=== PATIENT | male | born 1965 | race American Indian/Alaskan Native ===

== ENCOUNTER 2017-03-30 07:24 | Emergency (ER) | payer OTHER ==
[2017-03-30 15:29] VITALS: BP 178/133
--- NOTE | 2017-03-30 16:50 | Emergency Department Report ---
ED General Adult HPI - General Chief complaint: Abdominal Pain Time Seen by Provider: 03/30/17 16:23 Source: patient Mode of arrival: Ambulatory Limitations: No Limitations - History of Present Illness Initial comments: 52 y/o M presents w/ cc of colicky abdominal fullness/distension with constipation x 7 days. Pt states for the past 7 days he has not had a bm, and states he feels his abdomen is full /distended. Denies priro surgery, vomiting, fever, actual abdominal pain/tenderness. Denies etoh use, nsaid use, melena, hematochezia. Severity scale (0 -10): 7 - Related Data Home Medications Medication Instructions Recorded Confirmed Last Taken Amiodarone [Cordarone 200 MG TAB] 200 mg PO BID 03/30/17 03/30/17 03/30/17 Dabigatran [Pradaxa] 75 mg PO BID 03/30/17 03/30/17 03/30/17 NIFEdipine XL [Procardia Xl] 90 mg PO QDAY 03/30/17 03/30/17 03/30/17 cloNIDine [Catapres] 0.2 mg PO BID 03/30/17 03/30/17 03/30/17 Previous Rx's Medication Instructions Recorded Last Taken Type Furosemide [Lasix] 40 mg PO BID #60 tablet 10/15/13 03/30/17 Rx Glycerin Adult 2 gm 3 gm CO DAILY PRN #5 supp.rect 03/30/17 Unknown Rx Magnesium Citrate [Citrate of 150 ml PO ONCE PRN #300 solution 03/30/17 Unknown Rx Magnesia] Polyethylene Glycol 3350 [Miralax 17 gm PO QDAY PRN 14 Days 03/30/17 Unknown Rx 3350] Allergies Allergy/AdvReac Type Severity Reaction Status Date / Time No Known Allergies Allergy Verified 10/15/13 02:00 ED Review of Systems ROS: Stated complaint: Other details as noted in HPI Comment: All other systems reviewed and negative Constitutional: denies: chills, fever Eyes: denies: eye pain, eye discharge, vision change ENT: denies: ear pain, throat pain Respiratory: denies: cough, shortness of breath, wheezing Cardiovascular: denies: chest pain, palpitations Endocrine: no symptoms reported Gastrointestinal: constipation. denies: abdominal pain, nausea, diarrhea Genitourinary: denies: urgency, dysuria Musculoskeletal: denies: back pain, joint swelling, arthralgia Skin: denies: rash, lesions Neurological: denies: headache, weakness, paresthesias Psychiatric: denies: anxiety, depression Hematological/Lymphatic: denies: easy bleeding, easy bruising ED Past Medical Hx - Past Medical History Hx Hypertension: Yes Hx Congestive Heart Failure: Yes - Surgical History Past Surgical History?: No - Family History Family history: no significant - Social History Smoking Status: Never Smoker Substance Use Type: None - Medications Home Medications: Home Medications Medication Instructions Recorded Confirmed Last Taken Type Furosemide [Lasix] 40 mg PO BID #60 tablet 10/15/13 03/30/17 03/30/17 Rx Amiodarone [Cordarone 200 MG TAB] 200 mg PO BID 03/30/17 03/30/17 03/30/17 History Dabigatran [Pradaxa] 75 mg PO BID 03/30/17 03/30/17 03/30/17 History Glycerin Adult 2 gm 3 gm CO DAILY PRN #5 supp.rect 03/30/17 Unknown Rx Magnesium Citrate [Citrate of 150 ml PO ONCE PRN #300 solution 03/30/17 Unknown Rx Magnesia] NIFEdipine XL [Procardia Xl] 90 mg PO QDAY 03/30/17 03/30/17 03/30/17 History Polyethylene Glycol 3350 [Miralax 17 gm PO QDAY PRN 14 Days 03/30/17 Unknown Rx 3350] cloNIDine [Catapres] 0.2 mg PO BID 03/30/17 03/30/17 03/30/17 History ED Physical Exam - General Limitations: No Limitations General appearance: alert, in no apparent distress - Head Head exam: Present: atraumatic, normocephalic - Eye Eye exam: Present: normal appearance, PERRL, EOMI - ENT ENT exam: Present: normal exam, normal orophraynx, mucous membranes dry, mucous membranes moist - Neck Neck exam: Present: normal inspection, full ROM - Respiratory Respiratory exam: Present: normal lung sounds bilaterally. Absent: respiratory distress - Cardiovascular Cardiovascular Exam: Present: regular rate, normal rhythm, normal heart sounds. Absent: systolic murmur, diastolic murmur, rubs, gallop - GI/Abdominal GI/Abdominal exam: Present: soft, normal bowel sounds. 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 Absent: rash ED Course Vital Signs 03/30/17 03/30/17 03/30/17 07:40 15:28 15:29 Temperature 97.4 F L Pulse Rate 59 L 64 Respiratory 20 22 22 Rate Blood Pressure 152/119 Blood Pressure 178/133 [Left] O2 Sat by Pulse 100 100 100 Oximetry ED Medical Decision Making - Medical Decision Making Abdominal exam unremarkable, will get plain films to r/o SBO, but doubtful given no prior surgical hx. Abdomianl exam is benign, if plain films unremarkable, will give pt 12-24 hr abdominal precautions, and trial further laxatives. Plain films as reviewed by me notes no air fluid levels to suggest sbo, no free air. Will trial laxatives, pt given 12-24 hr abdominal preacutions, pt otherwise to return to ED if abd pain worsens or new symptoms develops. Pt also given discharge instructions regarding medications Critical care attestation.: If time is entered above; I have spent that time in minutes in the direct care of this critically ill patient, excluding procedure time. ED Disposition Clinical Impression: Constipation Qualifiers: Constipation type: unspecified constipation type Qualified Code(s): K59.00 - Constipation, unspecified Disposition: DISCHARGED TO HOME OR SELFCARE Is pt being admited?: No Does the pt Need Aspirin: No Condition: Good Instructions: Constipation (ED) Additional Instructions: Please follow up with primary care doctor in 1-2 days, return in 12-24 hrs if you have worsening abdominal pain, persistent vomiting, or any new concerning symptoms Prescriptions: Glycerin Adult 2 gm 3 gm CO DAILY PRN #5 supp.rect PRN Reason: Constipation Magnesium Citrate [Citrate of Magnesia] 150 ml PO ONCE PRN #300 solution PRN Reason: Constipation Polyethylene Glycol 3350 [Miralax 3350] 17 gm PO QDAY PRN 14 Days PRN Reason: Constipation Referrals: RADHA YANEZ MD [Primary Care Provider] - 3-5 Days Time of Disposition: 18:03
--- NOTE | 2017-03-31 08:12 | XRay Report ---
ABDOMINAL SERIES INDICATION: Constipation, abdominal pain. COMPARISON: 07/02/2013. FINDINGS: Abdominal series, 5 radiographs, demonstrate nonobstructive bowel gas pattern without focal suspicious calcifications, pneumatosis or pneumoperitoneum. Ascending/transverse colon stool/possible constipation. Accompanying chest radiograph demonstrates exaggerated cardiomediastinal silhouette/mild cardiomegaly. Somewhat prominent lung markings centrally with mild peribronchial thickening not excluded. Lung bases now clear without significant pleural effusions or CHF. Few bony degenerative changes. CONCLUSION: No acute abdominal radiographic abnormality with interval clearing of lung bases since June 2013, as described. Slight peribronchial thickening though now not excluded. Please correlate. Thank you for the opportunity to participate in this patient's care.
== END 2017-03-30 18:15 | disposition home or self-care (01) ==
LOC: ED 07:24
DX: K59.00 Constipation, unspecified (principal); I10 Essential (primary) hypertension; I50.9 Heart failure, unspecified
CPT/HCPCS: 74022; 99283

== ENCOUNTER 2017-05-05 08:12 | Outpatient (CLI) | payer OTHER ==
[2017-05-05] MEDS ORDERED: XYLOCAINE TOPICAL 4% TP ONE (08:35)
[2017-05-05] MEDS ORDERED: SANTYL TP ONE (10:05)
[2017-05-06] MEDS ORDERED: SANTYL TP SCH (10:00)
== END 2017-05-05 08:13 | disposition home or self-care (01) ==
LOC: WOUND 08:12
PROVIDERS: ATTEND Nurse Practitioner
DX: I87.313 Chronic venous hypertension (idiopathic) with ulcer of bilateral lower extremity (principal); L97.821 Non-pressure chronic ulcer of other part of left lower leg limited to breakdown of skin; L97.811 Non-pressure chronic ulcer of other part of right lower leg limited to breakdown of skin; I11.0 Hypertensive heart disease with heart failure; I50.22 Chronic systolic (congestive) heart failure; I48.91 Unspecified atrial fibrillation; Z87.891 Personal history of nicotine dependence
CPT/HCPCS: 11042; 11045; 87075; 87076; 87116; 87186; G0463

== ENCOUNTER 2017-05-26 11:04 | Outpatient (CLI) | payer OTHER ==
[2017-05-26] MEDS ORDERED: XYLOCAINE TOPICAL 4% TP ONE ×2 (11:49→12:03)
== END 2017-05-26 11:05 | disposition home or self-care (01) ==
LOC: WOUND 11:04
PROVIDERS: ATTEND Surgery
DX: I87.313 Chronic venous hypertension (idiopathic) with ulcer of bilateral lower extremity (principal); L97.821 Non-pressure chronic ulcer of other part of left lower leg limited to breakdown of skin; L97.811 Non-pressure chronic ulcer of other part of right lower leg limited to breakdown of skin; I11.0 Hypertensive heart disease with heart failure; I50.22 Chronic systolic (congestive) heart failure; I87.2 Venous insufficiency (chronic) (peripheral); I48.91 Unspecified atrial fibrillation; Z87.891 Personal history of nicotine dependence

== ENCOUNTER 2017-06-02 12:36 | Outpatient (CLI) | payer OTHER ==
[2017-06-02] MEDS ORDERED: XYLOCAINE TOPICAL 4% TP ONE ×2 (13:14→14:04)
== END 2017-06-02 12:37 | disposition home or self-care (01) ==
LOC: WOUND 12:36
PROVIDERS: ATTEND Nurse Practitioner
DX: I87.313 Chronic venous hypertension (idiopathic) with ulcer of bilateral lower extremity (principal); L97.821 Non-pressure chronic ulcer of other part of left lower leg limited to breakdown of skin; L97.811 Non-pressure chronic ulcer of other part of right lower leg limited to breakdown of skin; I11.0 Hypertensive heart disease with heart failure; I50.22 Chronic systolic (congestive) heart failure; I48.91 Unspecified atrial fibrillation; Z87.891 Personal history of nicotine dependence

== ENCOUNTER 2017-06-09 10:40 | Outpatient (CLI) | payer OTHER ==
[2017-06-09] MEDS ORDERED: XYLOCAINE TOPICAL 4% TP ONE ×2 (11:19→11:36)
== END 2017-06-09 10:41 | disposition home or self-care (01) ==
LOC: WOUND 10:40
PROVIDERS: ATTEND Nurse Practitioner
DX: I87.312 Chronic venous hypertension (idiopathic) with ulcer of left lower extremity (principal); L97.821 Non-pressure chronic ulcer of other part of left lower leg limited to breakdown of skin; I11.0 Hypertensive heart disease with heart failure; I50.9 Heart failure, unspecified; I48.91 Unspecified atrial fibrillation; Z87.891 Personal history of nicotine dependence

== ENCOUNTER 2017-06-16 10:49 | Outpatient (CLI) | payer OTHER ==
[2017-06-16] MEDS ORDERED: XYLOCAINE TOPICAL 4% TP ONE ×2 (11:24→11:26)
== END 2017-06-16 10:50 | disposition home or self-care (01) ==
LOC: WOUND 10:49
PROVIDERS: ATTEND Nurse Practitioner
DX: I87.313 Chronic venous hypertension (idiopathic) with ulcer of bilateral lower extremity (principal); L97.821 Non-pressure chronic ulcer of other part of left lower leg limited to breakdown of skin; L97.811 Non-pressure chronic ulcer of other part of right lower leg limited to breakdown of skin; I11.0 Hypertensive heart disease with heart failure; I50.22 Chronic systolic (congestive) heart failure; I48.91 Unspecified atrial fibrillation; Z87.891 Personal history of nicotine dependence

== ENCOUNTER 2017-06-20 15:30 | Outpatient (CLI) | payer OTHER | END 2017-06-20 15:31 | disposition home or self-care (01) | LOC: WOUND 15:30 | PROVIDERS: ATTEND Surgery | DX: I87.313 Chronic venous hypertension (idiopathic) with ulcer of bilateral lower extremity (principal); L97.821 Non-pressure chronic ulcer of other part of left lower leg limited to breakdown of skin; L97.811 Non-pressure chronic ulcer of other part of right lower leg limited to breakdown of skin; I11.0 Hypertensive heart disease with heart failure; I50.22 Chronic systolic (congestive) heart failure; I48.91 Unspecified atrial fibrillation; Z87.891 Personal history of nicotine dependence | CPT/HCPCS: 99213; G0463 ==

== ENCOUNTER 2017-06-23 10:50 | Outpatient (CLI) | payer OTHER ==
[2017-06-23] MEDS ORDERED: XYLOCAINE TOPICAL 4% TP ONE ×2 (11:12→11:17)
== END 2017-06-23 10:51 | disposition home or self-care (01) ==
LOC: WOUND 10:50
PROVIDERS: ATTEND Surgery
DX: I87.313 Chronic venous hypertension (idiopathic) with ulcer of bilateral lower extremity (principal); L97.821 Non-pressure chronic ulcer of other part of left lower leg limited to breakdown of skin; L97.811 Non-pressure chronic ulcer of other part of right lower leg limited to breakdown of skin; I11.0 Hypertensive heart disease with heart failure; I50.22 Chronic systolic (congestive) heart failure; I87.2 Venous insufficiency (chronic) (peripheral); I48.91 Unspecified atrial fibrillation; Z87.891 Personal history of nicotine dependence
CPT/HCPCS: 29580

== ENCOUNTER 2017-06-27 15:25 | Outpatient (CLI) | payer OTHER | END 2017-06-27 15:26 | disposition home or self-care (01) | LOC: WOUND 15:25 | PROVIDERS: ATTEND Internal Medicine | DX: I87.313 Chronic venous hypertension (idiopathic) with ulcer of bilateral lower extremity (principal); L97.821 Non-pressure chronic ulcer of other part of left lower leg limited to breakdown of skin; L97.811 Non-pressure chronic ulcer of other part of right lower leg limited to breakdown of skin; I11.0 Hypertensive heart disease with heart failure; I50.22 Chronic systolic (congestive) heart failure; I48.91 Unspecified atrial fibrillation; Z87.891 Personal history of nicotine dependence | CPT/HCPCS: 29580; 99215; G0463; G0463-25 ==

== ENCOUNTER 2017-06-30 10:51 | Outpatient (CLI) | payer OTHER ==
[2017-06-30] MEDS ORDERED: XYLOCAINE TOPICAL 2% TP ONE ×2 (11:31→14:57)
[2017-06-30] MEDS ORDERED: SILVER NITRATE TP ONE ×2 (11:53→14:57)
== END 2017-06-30 10:52 | disposition home or self-care (01) ==
LOC: WOUND 10:51
PROVIDERS: ATTEND Nurse Practitioner
DX: I87.313 Chronic venous hypertension (idiopathic) with ulcer of bilateral lower extremity (principal); L97.811 Non-pressure chronic ulcer of other part of right lower leg limited to breakdown of skin; L97.821 Non-pressure chronic ulcer of other part of left lower leg limited to breakdown of skin; I11.0 Hypertensive heart disease with heart failure; I50.22 Chronic systolic (congestive) heart failure; I48.91 Unspecified atrial fibrillation; Z87.891 Personal history of nicotine dependence

== ENCOUNTER 2017-07-04 15:41 | Outpatient (CLI) | payer OTHER | END 2017-07-04 15:42 | disposition home or self-care (01) | LOC: WOUND 15:41 | PROVIDERS: ATTEND Internal Medicine | DX: I87.313 Chronic venous hypertension (idiopathic) with ulcer of bilateral lower extremity (principal); L97.821 Non-pressure chronic ulcer of other part of left lower leg limited to breakdown of skin; L97.811 Non-pressure chronic ulcer of other part of right lower leg limited to breakdown of skin; I48.91 Unspecified atrial fibrillation; I11.0 Hypertensive heart disease with heart failure; I50.9 Heart failure, unspecified; Z87.891 Personal history of nicotine dependence | CPT/HCPCS: 29580; G0463 ==

== ENCOUNTER 2017-07-07 13:07 | Outpatient (CLI) | payer OTHER ==
[2017-07-07] MEDS ORDERED: XYLOCAINE TOPICAL 2% TP ONE (13:40)
== END 2017-07-07 13:08 | disposition home or self-care (01) ==
LOC: WOUND 13:07
PROVIDERS: ATTEND Nurse Practitioner
DX: I87.313 Chronic venous hypertension (idiopathic) with ulcer of bilateral lower extremity (principal); L97.821 Non-pressure chronic ulcer of other part of left lower leg limited to breakdown of skin; L97.811 Non-pressure chronic ulcer of other part of right lower leg limited to breakdown of skin; I11.0 Hypertensive heart disease with heart failure; I50.9 Heart failure, unspecified; I48.91 Unspecified atrial fibrillation; Z87.891 Personal history of nicotine dependence

== ENCOUNTER 2017-07-11 15:35 | Outpatient (CLI) | payer OTHER | END 2017-07-11 15:36 | disposition home or self-care (01) | LOC: WOUND 15:35 | PROVIDERS: ATTEND Internal Medicine | DX: I87.313 Chronic venous hypertension (idiopathic) with ulcer of bilateral lower extremity (principal); L97.821 Non-pressure chronic ulcer of other part of left lower leg limited to breakdown of skin; L97.811 Non-pressure chronic ulcer of other part of right lower leg limited to breakdown of skin; I11.0 Hypertensive heart disease with heart failure; I50.20 Unspecified systolic (congestive) heart failure; I48.91 Unspecified atrial fibrillation; Z87.891 Personal history of nicotine dependence | CPT/HCPCS: 29580 ==

== ENCOUNTER 2017-07-14 10:49 | Outpatient (CLI) | payer OTHER ==
[2017-07-14] MEDS ORDERED: XYLOCAINE TOPICAL 4% TP ONE (11:35)
[2017-07-14] MEDS ORDERED: SILVER NITRATE TP ONE (12:25)
== END 2017-07-14 10:50 | disposition home or self-care (01) ==
LOC: WOUND 10:49
PROVIDERS: ATTEND Nurse Practitioner
DX: I87.313 Chronic venous hypertension (idiopathic) with ulcer of bilateral lower extremity (principal); L97.821 Non-pressure chronic ulcer of other part of left lower leg limited to breakdown of skin; L97.811 Non-pressure chronic ulcer of other part of right lower leg limited to breakdown of skin; I11.0 Hypertensive heart disease with heart failure; I50.22 Chronic systolic (congestive) heart failure; I48.91 Unspecified atrial fibrillation; Z87.891 Personal history of nicotine dependence
CPT/HCPCS: 17250

== ENCOUNTER 2017-07-21 11:07 | Outpatient (CLI) | payer OTHER ==
[2017-07-21] MEDS ORDERED: XYLOCAINE TOPICAL 4% TP ONE (11:38)
[2017-07-21] MEDS ORDERED: XYLOCAINE TOPICAL 2% TP ONE (13:00)
== END 2017-07-21 11:08 | disposition home or self-care (01) ==
LOC: WOUND 11:07
PROVIDERS: ATTEND Nurse Practitioner
DX: I87.313 Chronic venous hypertension (idiopathic) with ulcer of bilateral lower extremity (principal); L97.821 Non-pressure chronic ulcer of other part of left lower leg limited to breakdown of skin; L97.811 Non-pressure chronic ulcer of other part of right lower leg limited to breakdown of skin; I11.0 Hypertensive heart disease with heart failure; I50.22 Chronic systolic (congestive) heart failure; I48.91 Unspecified atrial fibrillation; I50.9 Heart failure, unspecified; Z87.891 Personal history of nicotine dependence

== ENCOUNTER 2017-07-28 10:57 | Outpatient (CLI) | payer OTHER | END 2017-07-28 10:58 | disposition home or self-care (01) | LOC: WOUND 10:57 | PROVIDERS: ATTEND Nurse Practitioner | DX: I87.313 Chronic venous hypertension (idiopathic) with ulcer of bilateral lower extremity (principal); L97.821 Non-pressure chronic ulcer of other part of left lower leg limited to breakdown of skin; L97.811 Non-pressure chronic ulcer of other part of right lower leg limited to breakdown of skin; I11.0 Hypertensive heart disease with heart failure; I50.22 Chronic systolic (congestive) heart failure; I48.91 Unspecified atrial fibrillation; Z87.891 Personal history of nicotine dependence | CPT/HCPCS: 99213; G0463 ==

== ENCOUNTER 2018-06-20 20:07 | Inpatient (IN) | payer OTHER ==
[2018-06-20 20:44] LABS: Hematocrit 33.2 % (35.5-45.6); Hemoglobin 10.9 gm/dl (11.8-15.2); Mean Corpuscular HGB Conc 33 % (32-34); Mean Corpuscular Hemoglobin 29 pg (28-32); Mean Corpuscular Volume 88 fl (84-94); Platelet Count 215 K/mm3 (140-440); Red Blood Count 3.79 M/mm3 (3.65-5.03); Red Cell Distribution Width 16.2 % (13.2-15.2)
[2018-06-20 21:00] LABS: Calcium 8.2 mg/dL (8.4-10.2)
--- NOTE | 2018-06-20 23:57 | XRay Report ---
FINAL REPORT EXAM: XR CHEST ROUTINE 2V HISTORY: sob TECHNIQUE: Frontal and lateral views of the chest Comparison: None FINDINGS: The lateral view is degraded by motion artifact. There is prominence of the interstitial markings in both lungs. There appears to be pulmonary consolidation in the right lung base. There is prominence of the pulmonary venous vasculature suggestive of pulmonary venous congestion. The heart is enlarged. The thoracic aorta is tortuous. The bony structures are unremarkable. IMPRESSION: 1. Enlarged cardiac silhouette with evidence of pulmonary venous congestion, prominence of the interstitial markings and pulmonary consolidation right lung base. This may represent changes of CHF. An infectious component cannot entirely be excluded.
[2018-06-21] MEDS ORDERED: LASIX IV ONE (00:07)
--- NOTE | 2018-06-21 00:12 | Emergency Department Report ---
ED Shortness of Breath HPI - General Chief Complaint: Dyspnea/Respdistress Stated Complaint: FLUID STOMACH/LEG Time Seen by Provider: 06/20/18 23:39 Source: patient Mode of arrival: Ambulatory Limitations: No Limitations - History of Present Illness Initial Comments: Patient is 53 years old male history of congestive heart failure and hypertension. Patient presented to the ER complaining off shortness of breath for the last 5 days and getting worse since last night. Patient denied any cough or fever. Patient is also complaining of generalized body swelling especially abdomen and lower extremities. Patient stated that he is compliant with his Lasix. Complaint: shortness of breath -: days(s) Severity: moderate Known History Of: congestive heart failure Associated Symptoms: denies other symptoms - Related Data Home Medications Medication Instructions Recorded Confirmed Last Taken NIFEdipine XL [Procardia Xl] 90 mg PO QDAY 03/30/17 05/13/18 04/25/17 cloNIDine [Catapres] 0.2 mg PO BID 03/30/17 05/13/18 04/24/17 Previous Rx's Medication Instructions Recorded Last Taken Type Amiodarone [Cordarone 200 MG TAB] 200 mg PO QDAY #30 tablet 05/18/18 Unknown Rx AtorvaSTATin [Lipitor] 40 mg PO QHS #30 tablet 05/18/18 Unknown Rx Dabigatran [Pradaxa] 150 mg PO BID #60 capsule 05/18/18 Unknown Rx Furosemide [Lasix TAB] 40 mg PO QDAY #30 tablet 05/18/18 Unknown Rx Metolazone [Zaroxolyn] 5 mg PO QDAY #14 tablet 05/18/18 Unknown Rx Metoprolol Xl [Metoprolol 25 mg PO QDAY #30 tablet 05/18/18 Unknown Rx SUCCINATE ER TAB] Valsartan [Diovan] 80 mg PO QDAY 30 Days tablet 05/18/18 Unknown Rx Allergies Allergy/AdvReac Type Severity Reaction Status Date / Time No Known Allergies Allergy Verified 10/15/13 02:00 ED Review of Systems ROS: Stated complaint: FLUID STOMACH/LEG Other details as noted in HPI Comment: All other systems reviewed and negative Constitutional: denies: chills, fever Respiratory: orthopnea, shortness of breath, SOB with exertion, SOB at rest. denies: wheezing Cardiovascular: dyspnea on exertion, orthopnea, paroxysmal nocturnal dyspnea. denies: chest pain, palpitations Gastrointestinal: denies: abdominal pain, nausea, vomiting, diarrhea, constipation, hematemesis, melena, hematochezia ED Past Medical Hx - Past Medical History Hx Hypertension: Yes Hx Congestive Heart Failure: Yes Hx Renal Disease: Yes Additional medical history: AFIB,EF 10-15%, Dilated cardiomyopathy,Edema - Surgical History Past Surgical History?: No - Social History Smoking Status: Never Smoker Substance Use Type: None - Medications Home Medications: Home Medications Medication Instructions Recorded Confirmed Last Taken Type NIFEdipine XL [Procardia Xl] 90 mg PO QDAY 03/30/17 05/13/18 04/25/17 History cloNIDine [Catapres] 0.2 mg PO BID 03/30/17 05/13/18 04/24/17 History Amiodarone [Cordarone 200 MG TAB] 200 mg PO QDAY #30 tablet 05/18/18 Unknown Rx AtorvaSTATin [Lipitor] 40 mg PO QHS #30 tablet 05/18/18 Unknown Rx Dabigatran [Pradaxa] 150 mg PO BID #60 capsule 05/18/18 Unknown Rx Furosemide [Lasix TAB] 40 mg PO QDAY #30 tablet 05/18/18 Unknown Rx Metolazone [Zaroxolyn] 5 mg PO QDAY #14 tablet 05/18/18 Unknown Rx Metoprolol Xl [Metoprolol 25 mg PO QDAY #30 tablet 05/18/18 Unknown Rx SUCCINATE ER TAB] Valsartan [Diovan] 80 mg PO QDAY 30 Days tablet 05/18/18 Unknown Rx ED Physical Exam - General Limitations: No Limitations General appearance: alert, in distress (moderate respiratory distress) - Head Head exam: Present: atraumatic, normocephalic, normal inspection - Eye Eye exam: Present: normal appearance - ENT ENT exam: Present: normal exam, normal orophraynx, mucous membranes moist - Neck Neck exam: Present: normal inspection, full ROM. Absent: tenderness, meningismus, lymphadenopathy, thyromegaly - Respiratory Respiratory exam: Present: rales, decreased breath sounds. Absent: wheezes, rhonchi, chest wall tenderness, accessory muscle use, prolonged expiratory - Cardiovascular Cardiovascular Exam: Present: irregular rhythm, gallop. Absent: systolic murmur , diastolic murmur - GI/Abdominal GI/Abdominal exam: Present: soft, normal bowel sounds. Absent: distended, tenderness, guarding, rebound, rigid, mass, bruit, pulsatile mass, hernia - Extremities Exam Extremities exam: Present: full ROM, normal capillary refill, pedal edema. Absent: calf tenderness - Back Exam Back exam: Present: normal inspection, full ROM. Absent: tenderness, CVA tenderness (R) - Neurological Exam Neurological exam: Present: alert, oriented X3, CN II-XII intact, normal gait, reflexes normal - Skin Skin exam: Present: warm, intact, normal color ED Course Vital Signs 06/20/18 20:23 Temperature 98.4 F Pulse Rate 81 Respiratory 26 H Rate Blood Pressure 115/81 O2 Sat by Pulse 98 Oximetry ED Medical Decision Making - Lab Data Result diagrams: 06/20/18 20:32 06/20/18 20:32 - EKG Data -: EKG Interpreted by Me Rate: normal - EKG Data Interpretation: no acute changes - Radiology Data Radiology results: report reviewed Chest x-ray finding consistent with congestive heart failure. - Medical Decision Making I discussed the patient is Dr. Kebede, he agreed to admit the patient to his service. Critical care attestation.: If time is entered above; I have spent that time in minutes in the direct care of this critically ill patient, excluding procedure time. ED Disposition Clinical Impression: Acute on chronic systolic (congestive) heart failure, Atrial fibrillation Disposition: OP ADMIT IP TO THIS HOSP Is pt being admited?: Yes Condition: Stable Referrals: PRIMARY CARE, [Primary Care Provider] - 3-5 Days
[2018-06-21] MEDS ORDERED: ZOFRAN IV PRN (00:59)
[2018-06-21] MEDS ORDERED: TYLENOL PO PRN (00:59)
--- NOTE | 2018-06-21 02:39 | History and Physical Report ---
CHIEF COMPLAINT: Shortness of breath. Other complaints include generalized body swelling. HISTORY OF PRESENTING ILLNESS: The patient is a 53-year-old male with known history of congestive heart failure presenting with shortness of breath going on for about 5 days. Also, the patient complained of generalized swelling especially in the lower extremity and abdomen. There is no history of chest pain, no history of fever or chills, but there is history of dry cough. The patient denied history of nausea and vomiting as well. As said, he has been compliant with his intake of medication including Lasix. PAST MEDICAL HISTORY: Pertinent for hypertension, congestive heart failure, Raynaud disease, atrial fibrillation, dilated cardiomyopathy with ejection fraction of 10-15%. PAST SURGICAL HISTORY: Unremarkable. FAMILY HISTORY: Family history is noncontributory. SOCIAL HISTORY: The patient does not smoke, does not drink alcohol, does not use illicit drugs. MEDICATIONS: The patient is on the following medications: Nifedipine XL 90 mg by mouth daily, clonidine 0.2 mg by mouth twice daily, amiodarone 200 mg by mouth daily, atorvastatin 40 mg at bedtime, dabigatran or Pradaxa 150 mg by mouth twice daily, furosemide 40 mg by mouth daily, metolazone or Zaroxolyn 5 mg by mouth daily, metoprolol XL 25 mg by mouth daily, Diovan 80 mg by mouth daily. ALLERGIES: There are no known drug allergies. REVIEW OF SYSTEMS: CONSTITUTIONAL: There is no fever, no chills, no diaphoresis. HEENT: There is no headache or sore throat. CARDIOVASCULAR SYSTEM: There is no chest pain, but there is orthopnea. RESPIRATORY SYSTEM: There is shortness of breath and there is cough. GASTROINTESTINAL SYSTEM: There is no nausea, no vomiting, no abdominal pain, diarrhea or constipation. NEUROLOGICAL SYSTEM: There is no numbness, no dizziness, no altered mental status. MUSCULOSKELETAL SYSTEM: Generalized body swelling noted. Swelling of the lower extremity also noted. DERMATOLOGICAL SYSTEM: There is no skin rash or itching. GENITOURINARY SYSTEM: There is no dysuria, hematuria or flank pain. Rest of system review is normal. PHYSICAL EXAMINATION: GENERAL: At the time of exam, the patient was found to be alert, oriented x 3 and not in acute distress. VITAL SIGNS: At the initial time of presentation shows temperature of 98.4 degrees Fahrenheit, pulse of 81, respiration 26, blood pressure 115/81, O2 sat of 98% on room air. HEENT: Show pupils to be equal, round, reactive to light and accommodating. Extraocular muscles are intact. NECK: Supple with no JVD or carotid bruit. CARDIOVASCULAR SYSTEM: Show first and second heart sounds with irregularly irregular rhythm. RESPIRATORY SYSTEM: Show good air entry on both sides of the lungs with bibasilar rales. GASTROINTESTINAL SYSTEM: Show abdomen to be swollen, nontender with no organomegaly, no rigidity elicited. NEUROLOGICAL: Shows no focal deficits. MUSCULOSKELETAL SYSTEM: Show swelling of both lower extremities with pitting edema. DERMATOLOGICAL SYSTEM: Showed hyperpigmentation in the ankle areas. GENITOURINARY SYSTEM: Show no costovertebral angle tenderness. PERTINENT LABORATORY DATA AND IMAGING STUDIES: The patient has CBC done with normal white count, low hemoglobin of 10.9 and low hematocrit of 33.2 with normal platelet level. CBC differential was not done. Chemistry shows high BUN of 29 and elevated creatinine of 2.0 consistent with chronic kidney disease. The patient's calcium level was low with a value of 8.2. The patient's troponin level came back unremarkable and brain natriuretic peptide level is high with a value of 3389. IMAGING STUDIES: The patient has chest x-ray done. Chest x-ray showed enlarged cardiac silhouette with evidence of pulmonary venous congestion. Prominence of the interstitial markings and pulmonary consolidation in the right lung base and the radiologist said that this may represent changes of CHF. Went further to say that an infectious component cannot entirely be excluded. DIAGNOSES: 1. Congestive heart failure exacerbation. 2. Chronic kidney disease. 3. Anemia. PLAN: 1. The patient will be admitted to telemetry. 2. The patient will have cardiac enzyme involving troponin, total CK and CK-MB check q. 6 hours x 2 more levels. 3. The patient will have 2D echo done in the morning. 4. The patient will be on nitro paste one each to anterior chest wall q.i.d. 5. The patient will be on IV Lasix 40 mg daily. 6. The patient will be on p.r.n. medications like Tylenol 650 mg by mouth every 4 hours for fever and headache and Zofran 4 mg IV every 8 hours as needed for nausea and vomiting. 7. The patient will have Nephrology consult with the med surg rn for chronic kidney disease. 8. The patient's diet will be 2 g sodium diet. The patient's home medications will be started as shown in the medication reconciliation section. JOB# [id number] [facility]/DONNELL CHOWDHURY
[2018-06-21] MEDS: NITRO-BID 2% TP SCH ×3 (06:19→18:52)
[2018-06-21 09:02] LABS: Creatine Kinase MB 3.2 ng/mL (0.0-4.0)
--- NOTE | 2018-06-21 09:05 | Consultation ---
History of Present Illness Consult date: 06/21/18 Consult reason: congestive heart failure, known to you History of present illness: This is a 53 year old male with a known history of dilated cardiomyopathy dating back to 2012. His latest cardiac evaluation was done a month ago. He underwent a cardiac catheterization that revealed no significant coronary artery disease. Ejection fraction 10-15%. He also has a history of atrial fibrillation and is on Pradaxa for oral anticoagulation. Patient was sent from his doctors office with shortness of breath, severe abdominal distension admitted with severe anasarca and decompensated heart failure. 12 lead ECG shows atrial fibrillation with a well controled ventricular rate. Cardiac consultation was requested. Medications and Allergies Allergies Allergy/AdvReac Type Severity Reaction Status Date / Time No Known Allergies Allergy Verified 10/15/13 02:00 Home Medications Medication Instructions Recorded Confirmed Last Taken Type NIFEdipine XL [Procardia Xl] 90 mg PO QDAY 03/30/17 05/13/18 04/25/17 History cloNIDine [Catapres] 0.2 mg PO BID 03/30/17 05/13/18 04/24/17 History Amiodarone [Cordarone 200 MG TAB] 200 mg PO QDAY #30 tablet 05/18/18 Unknown Rx AtorvaSTATin [Lipitor] 40 mg PO QHS #30 tablet 05/18/18 Unknown Rx Dabigatran [Pradaxa] 150 mg PO BID #60 capsule 05/18/18 Unknown Rx Furosemide [Lasix TAB] 40 mg PO QDAY #30 tablet 05/18/18 Unknown Rx Metolazone [Zaroxolyn] 5 mg PO QDAY #14 tablet 05/18/18 Unknown Rx Metoprolol Xl [Metoprolol 25 mg PO QDAY #30 tablet 05/18/18 Unknown Rx SUCCINATE ER TAB] Valsartan [Diovan] 80 mg PO QDAY 30 Days tablet 05/18/18 Unknown Rx Active Meds: Active Medications Acetaminophen (Tylenol) 650 mg PO Q4H PRN PRN Reason: Fever >101 Amiodarone HCl (Cordarone) 200 mg PO QDAY KEITH Atorvastatin Calcium (Lipitor) 40 mg PO QHS KEITH Clonidine HCl (Catapres) 0.2 mg PO BID KEITH Dabigatran (Pradaxa) 150 mg PO BID KEITH; Protocol Furosemide (Lasix) 40 mg IV 0600,1800 KEITH Milrinone Lactate/Dextrose (Milrinone-D5w 20 Mg/100 Ml) 20 mg in 100 mls @ 12.263 mls/hr IV TITR KEITH Metolazone (Zaroxolyn) 5 mg PO QDAY KEITH Nifedipine (Procardia Xl) 90 mg PO QDAY [facility] Nitroglycerin (Nitro-Bid 2%) 1 inch TP QIDNTG [facility]; Protocol Last Admin: 06/21/18 06:19 Dose: 1 inch Ondansetron HCl (Zofran) 4 mg IV Q8H PRN PRN Reason: Nausea And Vomiting Valsartan (Diovan) 80 mg PO QDAY [facility] Physical Examination Vital Signs Temp Pulse Resp BP Pulse Ox 98.4 F 81 26 H 115/81 98 06/20/18 20:23 06/20/18 20:23 06/20/18 20:23 06/20/18 20:23 06/20/18 20:23 General appearance: no acute distress HEENT: Positive: PERRL Cardiac: Positive: irregularly irregular Lungs: Positive: Decreased Breath Sounds Neuro: Positive: Grossly Intact Abdomen: Positive: Distended Extremities: Present: edema Results 06/20/18 20:32 06/20/18 20:32 CBC 06/20/18 Range/Units 20:32 WBC 4.5 (4.5-11.0) K/mm3 RBC 3.79 (3.65-5.03) M/mm3 Hgb 10.9 L (11.8-15.2) gm/dl Hct 33.2 L (35.5-45.6) % Plt Count 215 (140-440) K/mm3 Comprehensive Metabolic Panel 06/20/18 Range/Units 20:32 Sodium 141 (137-145) mmol/L Potassium 3.8 (3.6-5.0) mmol/L Chloride 105.4 (98-107) mmol/L Carbon Dioxide 22 (22-30) mmol/L BUN 29 H (9-20) mg/dL Creatinine 2.0 H (0.8-1.5) mg/dL Glucose 96 (75-100) mg/dL Calcium 8.2 L (8.4-10.2) mg/dL Assessment and Plan Acute on chronic systolic heart failure Aanasarca Severe Nonischemic Cardiomyopathy Persistent atrial fibrillation rate controlled and currently treated with amiodarone. on Pradaxa for oral anticoagulation. Hypertension Acute renal failure Cardiac cath 05/2018 shows a severe nonischemic cardiomyopathy with left ventricular ejection fraction 10%. Recommend: Abdominal ultrasound for ascities evaluation. Aggressive medical therapy for systolic heart failure. We will initiate a trial of IV milrinone therapy. Sodium/Fluid restriction. Daily weight.
[2018-06-21] MEDS ORDERED: LASIX IV SCH ×3 (10:00→18:00)
[2018-06-21] MEDS ORDERED: TOPROL XL PO SCH (10:00)
[2018-06-21] MEDS: CATAPRES PO SCH ×2 (10:29→22:00)
--- NOTE | 2018-06-21 12:32 | Consultation ---
History of Present Illness - Reason for Consult Consult date: 06/21/18 acute renal failure, chronic renal failure Requesting physician: ROOSEVELT US - History of Present Illness This is a 53 yo AAM with past medical history of hypertension, hyperlipidemia, Chronic nonischemic cardiomyopathy, with EF of 10-15%, atrial fibrillation, CKD , who presented to [facility] with complaints of progressive SOB, NORIEGA, chest tightness for the last week. Pt was found to be in A-fib and CXR showed cardiomegaly, pulmonary vascular congestion and pt was admitted for IV diuresis along with inotropic support. Labs showed elevated BUN/Cr 29/2.0mg/dl compared to pt's previous baseline Cr around 1.5-1.6mg/dl, for which Renal consult is requested. pt denies fever, chills, nausea, vomiting, diarrhea, abd pain, rash, no recent NSAIDs use or IV contrast exposure reported. pt is not aware of any previous renal disorder. Past History Past Medical History: atrial fib, heart failure, hypertension Past Surgical History: No surgical history Social history: no significant social history. denies: smoking, alcohol abuse, prescription drug abuse, IV drug use Family history: hypertension Medications and Allergies Allergies Allergy/AdvReac Type Severity Reaction Status Date / Time No Known Allergies Allergy Verified 10/15/13 02:00 Home Medications Medication Instructions Recorded Confirmed Last Taken Type NIFEdipine XL [Procardia Xl] 90 mg PO QDAY 03/30/17 05/13/18 04/25/17 History cloNIDine [Catapres] 0.2 mg PO BID 03/30/17 05/13/18 04/24/17 History Amiodarone [Cordarone 200 MG TAB] 200 mg PO QDAY #30 tablet 05/18/18 Unknown Rx AtorvaSTATin [Lipitor] 40 mg PO QHS #30 tablet 05/18/18 Unknown Rx Dabigatran [Pradaxa] 150 mg PO BID #60 capsule 05/18/18 Unknown Rx Furosemide [Lasix TAB] 40 mg PO QDAY #30 tablet 05/18/18 Unknown Rx Metolazone [Zaroxolyn] 5 mg PO QDAY #14 tablet 05/18/18 Unknown Rx Metoprolol Xl [Metoprolol 25 mg PO QDAY #30 tablet 05/18/18 Unknown Rx SUCCINATE ER TAB] Valsartan [Diovan] 80 mg PO QDAY 30 Days tablet 05/18/18 Unknown Rx Active Meds: Active Medications Acetaminophen (Tylenol) 650 mg PO Q4H PRN PRN Reason: Fever >101 Amiodarone HCl (Cordarone) 200 mg PO QDAY [facility] Atorvastatin Calcium (Lipitor) 40 mg PO QHS [facility] Clonidine HCl (Catapres) 0.2 mg PO BID [facility] Dabigatran (Pradaxa) 150 mg PO BID [facility]; Protocol Furosemide (Lasix) 60 mg IV 0600,1800 [facility] Milrinone Lactate/Dextrose (Milrinone-D5w 20 Mg/100 Ml) 20 mg in 100 mls @ 12.263 mls/hr IV TITR KEITH Metolazone (Zaroxolyn) 5 mg PO QDAY [facility] Metoprolol Succinate (Toprol Xl) 25 mg PO QDAY [facility] Nifedipine (Procardia Xl) 90 mg PO QDAY [facility] Nitroglycerin (Nitro-Bid 2%) 1 inch TP QIDNTG [facility]; Protocol Last Admin: 06/21/18 06:19 Dose: 1 inch Ondansetron HCl (Zofran) 4 mg IV Q8H PRN PRN Reason: Nausea And Vomiting Valsartan (Diovan) 80 mg PO QDAY [facility] Review of Systems All systems: negative Constitutional: fatigue, weakness Cardiovascular: orthopnea, shortness of breath, dyspnea on exertion Respiratory: cough Exam - Vital Signs Vital signs: Vital Signs Temp Pulse Resp BP Pulse Ox 98.4 F 81 26 H 115/81 98 06/20/18 20:23 06/20/18 20:23 06/20/18 20:23 06/20/18 20:23 06/20/18 20:23 - General Appearance General appearance: well-developed, well-nourished, appears stated age EENT: ATNC, PERRL, mucous membranes moist Neck: Present: neck supple Respiratory: Decreased Breath Sounds Heart: regular, S1S2 Gastrointestinal: Present: normoactive bowel sounds Integumentary: no rash, other (+ edema b/l LE ) Neurologic: no focal deficit, alert and oriented x3, strength 5/5, CN 3-12 intact Psychiatric: mood/affect appropriate, cooperative Results - Lab Results 06/20/18 20:32 06/20/18 20:32 Most recent lab results Calcium 8.2 mg/dL (8.4-10.2) L 06/20/18 20:32 Assessment and Plan - Patient Problems (1) DESEAN (acute kidney injury) Current Visit: No Status: Acute Plan to address problem: acute kidney injury likely due to acute cardiorenal syndrome in the setting of acute CHF exacerbation. IV lasix 60mg bid, to target net negative fluid balance >1L/day. If diuretic effect is not adequate will add metolazone Inotropic support as per cardiology check urine lytes to assess FeNA, check urine protein/cr ratio Avoid nephrotoxins, NSAIDs, IV contrast (2) Acute on chronic systolic (congestive) heart failure Current Visit: Yes Status: Acute Plan to address problem: IV lasix, inotropic support with milrinone. cont ARB for now, will hold it however if eGFR continues to decline. strict I/Os, daily weight, fluid restriction to 1.5L/day (3) Atrial fibrillation Current Visit: Yes Status: Acute Qualifiers: Plan to address problem: rate control as per cardiology (4) Pulmonary edema Current Visit: Yes Status: Acute Plan to address problem: IV lasix 60mg bid. na/fluid restriction discussed.
[2018-06-21] MEDS: PRADAXA PO SCH ×2 (12:46→22:00)
[2018-06-21] MEDS: PROCARDIA XL PO SCH (12:46)
[2018-06-21] MEDS: ZAROXOLYN PO SCH (12:46)
[2018-06-21] MEDS: DIOVAN PO SCH (12:47)
[2018-06-21] MEDS: CORDARONE PO SCH (12:47)
--- NOTE | 2018-06-21 15:10 | Progress Note ---
Assessment and Plan Assessment and plan: 53M with CHF, pw sob and pedal edema, says his diuretics at home were not working DESEAN (acute kidney injury) renal on board, improving with diuresis and cardiac ionotrope Acute on chronic systolic (congestive) heart failure -continue IV ionotrope, continue diuretics, cardiology consult appreciated Atrial fibrillation continue rate control meds Pulmonary edema due to CHF IV lasix 60mg bid. na/fluid restriction discussed. CCT 33 minutes History Interval history: Review of systems Constitutional: No fevers, no malaise, no joint pains CVS: co sob and pedal edema GI: No abdominal pain, no diarrhea, no vomiting, no constipation Respiratory: No shortness of breath, no wheezing, no coughing Hospitalist Physical - Physical exam Narrative exam: General.: Appears well, no distress, nontoxic HEENT: Moist mucous membranes, extraocular muscles intact, no lymphadenopathy Neck: supple Cardiac: S1-S2 heard Lungs: bilat crackles, diminshed air entry Abdomen: soft , nontender, distended with ascites, bowel sounds positive Extremities: severe bipedal edema Skin: no rash or lesions Neurologic: no gross focal deficits Psych: appropriate behavior, appropriate mood, corporative, judgment intact - Constitutional Vitals: Temp Pulse Resp BP Pulse Ox 97.9 F 93 H 20 96/60 95 06/21/18 11:47 06/21/18 11:47 06/21/18 11:47 06/21/18 13:30 06/21/18 11:47 General appearance: Present: no acute distress Results - Labs CBC & Chem 7: 06/20/18 20:32 06/24/18 04:49 Labs: Laboratory Last Values WBC 4.5 K/mm3 (4.5-11.0) 06/20/18 20:32 RBC 3.79 M/mm3 (3.65-5.03) 06/20/18 20:32 Hgb 10.9 gm/dl (11.8-15.2) L 06/20/18 20:32 Hct 33.2 % (35.5-45.6) L 06/20/18 20:32 MCV 88 fl (84-94) 06/20/18 20:32 MCH 29 pg (28-32) 06/20/18 20:32 MCHC 33 % (32-34) 06/20/18 20:32 RDW 16.2 % (13.2-15.2) H 06/20/18 20:32 Plt Count 215 K/mm3 (140-440) 06/20/18 20:32 Sodium 141 mmol/L (137-145) 06/20/18 20:32 Potassium 3.8 mmol/L (3.6-5.0) 06/20/18 20:32 Chloride 105.4 mmol/L (98-107) 06/20/18 20:32 Carbon Dioxide 22 mmol/L (22-30) 06/20/18 20:32 Anion Gap 17 mmol/L 06/20/18 20:32 BUN 29 mg/dL (9-20) H 06/20/18 20:32 Creatinine 2.0 mg/dL (0.8-1.5) H 06/20/18 20:32 Estimated GFR 43 ml/min 06/20/18 20:32 BUN/Creatinine Ratio 15 % 06/20/18 20:32 Glucose 96 mg/dL (75-100) 06/20/18 20:32 Calcium 8.2 mg/dL (8.4-10.2) L 06/20/18 20:32 Total Creatine Kinase 190 units/L (55-170) H 06/21/18 11:42 CK-MB (CK-2) 3.0 ng/mL (0.0-4.0) 06/21/18 11:42 CK-MB (CK-2) Rel Index 1.5 (0-4) 06/21/18 11:42 Troponin T < 0.010 ng/mL (0.00-0.029) 06/21/18 11:42 NT-Pro-B Natriuret Pep 3389 pg/mL (0-900) H 06/20/18 20:32
[2018-06-21] MEDS: MILRINONE-D5W 20 MG/100 ML 20 MG/100 ML BAG IV SCH ×2 (16:15→22:03)
[2018-06-21] MEDS: LASIX IV SCH (18:58)
[2018-06-21 20:22] LABS: Bilirubin,Urine NEG (Negative); Blood,Urine NEG (Negative); Color,Urine Yellow (Yellow); Protein,Urine <15 mg/dL mg/dL (Negative); Urobilinogen,Urine < 2.0 mg/dL (<2.0); WBC,Urine < 1.0 /HPF (0.0-6.0)
[2018-06-21 20:39] LABS: Creatinine,Urine 26.7 mg/dL (0.1-20.0)
[2018-06-21 20:52] LABS: Calcium 7.9 mg/dL (8.4-10.2)
[2018-06-22] MEDS: LASIX IV SCH ×2 (05:55→18:20)
[2018-06-22] MEDS: NITRO-BID 2% TP SCH ×4 (05:55→18:14)
--- NOTE | 2018-06-22 10:23 | Ultrasound Report ---
ULTRASOUND ABDOMEN COMPLETE: TECHNIQUE: Transabdominal ultrasound with color Doppler interrogation. HISTORY: Abdominal distention. COMPARISON: none. FINDINGS: LIVER: Normal. BILIARY SYSTEM: Normal. PANCREAS: Normal. SPLEEN: Normal. 8.9 cm. KIDNEYS: The kidneys are normal size, contour and position. There is increased renal cortical echotexture consistent with nonspecific renal parenchymal disease. AORTA/IVC: Normal. ASCITES: Moderate simple appearing ascites is identified throughout the abdomen. IMPRESSION: Moderate ascites. Slightly echogenic kidneys consistent with nonspecific renal parenchymal disease.
[2018-06-22] MEDS: DIOVAN PO SCH (10:48)
[2018-06-22] MEDS: CATAPRES PO SCH ×2 (10:48→22:18)
[2018-06-22] MEDS: PRADAXA PO SCH ×3 (10:49→22:14)
[2018-06-22] MEDS: PROCARDIA XL PO SCH (10:54)
[2018-06-22] MEDS: TOPROL XL PO SCH (10:54)
[2018-06-22] MEDS: CORDARONE PO SCH (10:55)
[2018-06-22] MEDS: ZAROXOLYN PO SCH (10:55)
--- NOTE | 2018-06-22 11:12 | Progress Note ---
Assessment and Plan Acute on chronic systolic heart failure Aanasarca Ascities -moderate by abd u/s Severe Nonischemic Cardiomyopathy Persistent atrial fibrillation with ventricular pauses < 5 sec seen on telemetry rate controlled and currently treated with amiodarone and toprol XL. on Pradaxa for oral anticoagulation. Hypertension Acute renal failure Cardiac cath 05/2018 shows a severe nonischemic cardiomyopathy with left ventricular ejection fraction 10%. Recommend: Aggressive medical therapy for systolic heart failure. Sodium/Fluid restriction. Daily weight. Subjective Date of service: 06/22/18 Interval history: IV milrinone held overnight secondary to hypotension. < 5 sec pause seen on telemetry overnight. Patient remained asymptomatic per nursing. Objective Vital Signs Temp Pulse Resp BP BP Pulse Ox 06/22/18 10:54 96/66 06/22/18 10:49 06/22/18 10:48 06/22/18 08:44 98.3 F 100 H 22 104/59 97 06/22/18 05:44 98.0 F 71 18 88/47 97 06/22/18 05:15 99 H 98 06/21/18 23:15 98.2 F 61 18 78/45 96 06/21/18 20:03 98.1 F 61 20 86/61 99 06/21/18 19:39 77/47 06/21/18 17:36 98.0 F 73 20 117/89 06/21/18 16:01 98.0 F 65 20 118/82 99 06/21/18 13:30 96/60 06/21/18 11:47 97.9 F 93 H 20 96/60 95 - Physical Examination General: No Apparent Distress HEENT: Positive: PERRL Cardiac: Positive: irregularly irregular Neuro: Positive: Grossly Intact Abdomen: Positive: Distended Extremities: Present: edema - Labs and Meds Cardiac Enzymes 06/21/18 Range/Units 11:42 CK-MB (CK-2) 3.0 (0.0-4.0) ng/mL Comprehensive Metabolic Panel 06/21/18 06/22/18 Range/Units 20:09 07:43 Sodium 140 141 (137-145) mmol/L Potassium 3.3 L 3.1 L (3.6-5.0) mmol/L Chloride 104.5 104.1 (98-107) mmol/L Carbon Dioxide 23 22 (22-30) mmol/L BUN 28 H 30 H (9-20) mg/dL Creatinine 1.6 H 2.0 H (0.8-1.5) mg/dL Glucose 93 98 (75-100) mg/dL Calcium 7.9 L 8.0 L (8.4-10.2) mg/dL
[2018-06-22] MEDS: DOBUTREX DRIP 500MG/D5W 250ML 500 MG/250 ML BAG IV SCH (16:15)
--- NOTE | 2018-06-22 17:16 | Progress Note ---
Assessment and Plan - Patient Problems (1) DESEAN (acute kidney injury) Current Visit: No Status: Acute Plan to address problem: acute kidney injury likely due to acute cardiorenal syndrome in the setting of acute CHF exacerbation. cont IV lasix 60mg bid along with metolazone to target net negative fluid balance >1L/day. Inotropic support as per cardiology Urine studies show no evidence of significant proteinuria/hematuria, I doubt acute glomerular injury Avoid nephrotoxins, NSAIDs, IV contrast (2) Acute on chronic systolic (congestive) heart failure Current Visit: Yes Status: Acute Plan to address problem: IV lasix, inotropic support (cardiology considering dobutamin due to low BP on milrinone). cont ARB for now. strict I/Os, daily weight, fluid restriction to 1.5L/day (3) Atrial fibrillation Current Visit: Yes Status: Acute Qualifiers: Plan to address problem: rate control as per cardiology (4) Pulmonary edema Current Visit: Yes Status: Acute Plan to address problem: IV lasix 60mg bid. na/fluid restriction discussed. Subjective Date of service: 06/22/18 Principal diagnosis: DESEAN on CKD Interval history: Pt reports improved SOB, denies fever, chills, n/v/d, CP, palpitations Objective - Vital Signs Vital signs: Vital Signs - 12hr 06/22/18 06/22/18 06/22/18 05:15 05:44 08:44 Temperature 98.0 F 98.3 F Pulse Rate 99 H 71 100 H Respiratory 18 22 Rate Blood Pressure 104/59 Blood Pressure 88/47 [Right] O2 Sat by Pulse 98 97 97 Oximetry 06/22/18 06/22/18 06/22/18 10:30 10:48 10:49 Temperature 98.1 F Pulse Rate 64 Respiratory 20 Rate Blood Pressure 96/66 96/66 Blood Pressure 96/66 [Right] O2 Sat by Pulse Oximetry 06/22/18 06/22/18 06/22/18 10:54 11:12 16:49 Temperature 98.3 F 97.9 F Pulse Rate 79 55 L Respiratory 20 22 Rate Blood Pressure 96/66 105/73 114/78 Blood Pressure [Right] O2 Sat by Pulse 95 95 Oximetry - General Appearance General appearance: well-developed, well-nourished, appears stated age EENT: ATNC, PERRL, mucous membranes moist Neck: no JVD Respiratory: Present: Decreased Breath Sounds Cardiology: regular, S1S2 Gastrointestinal: normoactive bowel sounds, obese Integumentary: no rash, other (2+ edema b/l LE ) Neurologic: no focal deficit, alert and oriented x3, strength 5/5, CN 3-12 intact Psychiatric: mood/affect appropriate, cooperative - Lab 06/20/18 20:32 06/22/18 07:43 Most recent lab results Calcium 8.0 mg/dL (8.4-10.2) L 06/22/18 07:43 Urine Creatinine 26.7 mg/dL (0.1-20.0) H 06/21/18 19:56 Urine Sodium 105 mmol/L 06/21/18 19:56 Urine Total Protein < 4 mg/dL (5-11.8) L 06/21/18 19:56
[2018-06-23] MEDS: LASIX IV SCH ×2 (05:57→18:05)
[2018-06-23 06:33] LABS: Calcium 8.4 mg/dL (8.4-10.2)
[2018-06-23] MEDS: NITRO-BID 2% TP SCH ×4 (06:54→18:11)
[2018-06-23] MEDS ORDERED: K-DUR PO NR (08:00)
[2018-06-23] MEDS: DOBUTREX DRIP 500MG/D5W 250ML 500 MG/250 ML BAG IV SCH (08:10)
--- NOTE | 2018-06-23 08:11 | Progress Note ---
Assessment and Plan Assessment and plan: 53M with CHF, pw sob and pedal edema, says his diuretics at home were not working DESEAN (acute kidney injury) renal on board, improving with diuresis and cardiac ionotrope Acute on chronic systolic (congestive) heart failure -continue IV ionotrope, continue diuretics, cardiology consult appreciated Atrial fibrillation continue rate control meds Pulmonary edema due to CHF IV lasix 60mg bid. na/fluid restriction discussed. Hypokalemia; continue K supplements CCT 33 minutes History Interval history: Review of systems Constitutional: No fevers, no malaise, no joint pains CVS: co sob and pedal edema GI: No abdominal pain, no diarrhea, no vomiting, no constipation Respiratory: No shortness of breath, no wheezing, no coughing Hospitalist Physical - Physical exam Narrative exam: General.: Appears well, no distress, nontoxic HEENT: Moist mucous membranes, extraocular muscles intact, no lymphadenopathy Neck: supple Cardiac: S1-S2 heard Lungs: bilat crackles, diminshed air entry Abdomen: soft , nontender, distended with ascites, bowel sounds positive Extremities: severe bipedal edema Skin: no rash or lesions Neurologic: no gross focal deficits Psych: appropriate behavior, appropriate mood, corporative, judgment intact - Constitutional Vitals: Temp Pulse Resp BP Pulse Ox 98.6 F 103 H 20 131/93 92 06/23/18 05:14 06/23/18 05:14 06/23/18 05:14 06/23/18 05:14 06/23/18 05:14 General appearance: Present: no acute distress Results - Labs CBC & Chem 7: 06/20/18 20:32 06/24/18 04:49 Labs: Laboratory Last Values WBC 4.5 K/mm3 (4.5-11.0) 06/20/18 20:32 RBC 3.79 M/mm3 (3.65-5.03) 06/20/18 20:32 Hgb 10.9 gm/dl (11.8-15.2) L 06/20/18 20:32 Hct 33.2 % (35.5-45.6) L 06/20/18 20:32 MCV 88 fl (84-94) 06/20/18 20:32 MCH 29 pg (28-32) 06/20/18 20:32 MCHC 33 % (32-34) 06/20/18 20:32 RDW 16.2 % (13.2-15.2) H 06/20/18 20:32 Plt Count 215 K/mm3 (140-440) 06/20/18 20:32 Sodium 144 mmol/L (137-145) 06/23/18 05:17 Potassium 2.9 mmol/L (3.6-5.0) L* 06/23/18 05:17 Chloride 102.9 mmol/L (98-107) 06/23/18 05:17 Carbon Dioxide 25 mmol/L (22-30) 06/23/18 05:17 Anion Gap 19 mmol/L 06/23/18 05:17 BUN 23 mg/dL (9-20) H 06/23/18 05:17 Creatinine 1.7 mg/dL (0.8-1.5) H 06/23/18 05:17 Estimated GFR 51 ml/min 06/23/18 05:17 BUN/Creatinine Ratio 14 % 06/23/18 05:17 Glucose 79 mg/dL (75-100) 06/23/18 05:17 Calcium 8.4 mg/dL (8.4-10.2) 06/23/18 05:17 Total Creatine Kinase 190 units/L (55-170) H 06/21/18 11:42 CK-MB (CK-2) 3.0 ng/mL (0.0-4.0) 06/21/18 11:42 CK-MB (CK-2) Rel Index 1.5 (0-4) 06/21/18 11:42 Troponin T < 0.010 ng/mL (0.00-0.029) 06/21/18 11:42 NT-Pro-B Natriuret Pep 3389 pg/mL (0-900) H 06/20/18 20:32 Urine Color Yellow (Yellow) 06/21/18 19:56 Urine Turbidity Clear (Clear) 06/21/18 19:56 Urine pH 5.0 (5.0-7.0) 06/21/18 19:56 Ur Specific [place] 1.006 (1.003-1.030) 06/21/18 19:56 Urine Protein <15 mg/dl mg/dL (Negative) 06/21/18 19:56 Urine Glucose (UA) Neg mg/dL (Negative) 06/21/18 19:56 Urine Ketones Neg mg/dL (Negative) 06/21/18 19:56 Urine Blood Neg (Negative) 06/21/18 19:56 Urine Nitrite Neg (Negative) 06/21/18 19:56 Urine Bilirubin Neg (Negative) 06/21/18 19:56 Urine Urobilinogen < 2.0 mg/dL (<2.0) 06/21/18 19:56 Ur Leukocyte Esterase Neg (Negative) 06/21/18 19:56 Urine WBC (Auto) < 1.0 /HPF (0.0-6.0) 06/21/18 19:56 Urine RBC (Auto) 3.0 /HPF (0.0-6.0) 06/21/18 19:56 Urine Creatinine 26.7 mg/dL (0.1-20.0) H 06/21/18 19:56 Urine Sodium 105 mmol/L 06/21/18 19:56 Urine Total Protein < 4 mg/dL (5-11.8) L 06/21/18 19:56
--- NOTE | 2018-06-23 09:41 | Progress Note ---
Assessment and Plan Acute on chronic systolic heart failure Aanasarca Ascities -moderate by abd u/s Severe Nonischemic Cardiomyopathy Persistent atrial fibrillation with ventricular pauses < 5 sec seen on telemetry rate controlled and currently treated with amiodarone and toprol XL. on Pradaxa for oral anticoagulation. Hypertension Acute renal failure Cardiac cath 05/2018 shows a severe nonischemic cardiomyopathy with left ventricular ejection fraction 10%. Recommend: Continue aggressive medical therapy for systolic heart failure including trial of IV dobutrex. Sodium/Fluid restriction. Daily weight. Subjective Date of service: 06/23/18 Principal diagnosis: DESEAN on CKD Interval history: Patient has no complaints. Reports his breathing is improving. Edema is slowly resolving. No reported cardiac events overnight. Objective Vital Signs Temp Pulse Resp BP BP BP Pulse Ox 06/23/18 09:22 98.1 F 86 20 129/86 96 06/23/18 08:32 98.1 F 95 H 20 142/108 98 06/23/18 05:14 98.6 F 103 H 20 131/93 92 06/22/18 23:35 97.9 F 92 H 18 127/87 100 06/22/18 22:18 72 110/88 06/22/18 20:54 98.0 F 72 18 110/88 100 06/22/18 18:14 55 L 06/22/18 16:49 97.9 F 55 L 22 114/78 95 06/22/18 11:12 98.3 F 79 20 105/73 95 06/22/18 10:54 96/66 06/22/18 10:49 /06/22/18 10:48 /06/22/18 10:31 /06/22/18 10:30 98.1 F 64 20 96/66 - Physical Examination General: No Apparent Distress HEENT: Positive: PERRL Cardiac: Positive: irregularly irregular Neuro: Positive: Grossly Intact Abdomen: Positive: Distended Extremities: Present: edema - Labs and Meds Comprehensive Metabolic Panel 06/23/18 Range/Units 05:17 Sodium 144 (137-145) mmol/L Potassium 2.9 L* (3.6-5.0) mmol/L Chloride 102.9 (98-107) mmol/L Carbon Dioxide 25 (22-30) mmol/L BUN 23 H (9-20) mg/dL Creatinine 1.7 H (0.8-1.5) mg/dL Glucose 79 (75-100) mg/dL Calcium 8.4 (8.4-10.2) mg/dL
[2018-06-23] MEDS ORDERED: POTASSIUM CHLORIDE FEEDTUBE SCH (10:00)
[2018-06-23] MEDS: CATAPRES PO SCH ×2 (10:58→22:27)
[2018-06-23] MEDS: TOPROL XL PO SCH (10:58)
[2018-06-23] MEDS: K-DUR PO SCH ×4 (10:58→22:28)
[2018-06-23] MEDS: PRADAXA PO SCH ×2 (11:04→22:28)
[2018-06-23] MEDS: ZAROXOLYN PO SCH (11:04)
[2018-06-23] MEDS: PROCARDIA XL PO SCH (11:07)
[2018-06-23] MEDS: CORDARONE PO SCH (11:07)
[2018-06-23] MEDS: DIOVAN PO SCH (11:12)
--- NOTE | 2018-06-23 12:02 | Progress Note ---
Assessment and Plan - Patient Problems (1) DESEAN (acute kidney injury) Current Visit: No Status: Acute Plan to address problem: acute kidney injury likely due to acute cardiorenal syndrome in the setting of acute CHF exacerbation. cont IV lasix 60mg bid along with dobutamin to target net negative fluid balance >1L/day. will d/c metolazone given significant hypokalemia Urine studies show no evidence of significant proteinuria/hematuria, I doubt acute glomerular injury Avoid nephrotoxins, NSAIDs, IV contrast (2) Acute on chronic systolic (congestive) heart failure Current Visit: Yes Status: Acute Plan to address problem: IV lasix, inotropic support with dobutamin. cont ARB for now. strict I/Os, daily weight, fluid restriction to 1.5L/day (3) Atrial fibrillation Current Visit: Yes Status: Acute Qualifiers: Plan to address problem: rate control as per cardiology (4) Pulmonary edema Current Visit: Yes Status: Acute Plan to address problem: IV lasix 60mg bid. na/fluid restriction discussed. (5) Hypokalemia Current Visit: Yes Status: Acute Plan to address problem: supplementation with Kdur to target K > 4 Subjective Date of service: 06/23/18 Principal diagnosis: DESEAN on CKD Interval history: Pt reports improved SOB, denies fever, chills, n/v/d, CP, palpitations Objective - Vital Signs Vital signs: Vital Signs - 12hr 06/23/18 06/23/18 06/23/18 05:14 08:32 09:22 Temperature 98.6 F 98.1 F 98.1 F Pulse Rate 103 H 95 H 86 Respiratory 20 20 20 Rate Blood Pressure 131/93 142/108 Blood Pressure 129/86 [Left] O2 Sat by Pulse 92 98 96 Oximetry - General Appearance General appearance: well-developed, well-nourished, appears stated age, obese EENT: ATNC, PERRL, mucous membranes moist Neck: no JVD Respiratory: Present: Decreased Breath Sounds Cardiology: regular, S1S2 Gastrointestinal: normoactive bowel sounds, obese Integumentary: no rash, other (+ edema b/l LE ) Neurologic: no focal deficit, alert and oriented x3, strength 5/5, CN 3-12 intact Psychiatric: mood/affect appropriate, cooperative - Lab 06/20/18 20:32 06/23/18 05:17 Most recent lab results Calcium 8.4 mg/dL (8.4-10.2) 06/23/18 05:17 Urine Creatinine 26.7 mg/dL (0.1-20.0) H 06/21/18 19:56 Urine Sodium 105 mmol/L 06/21/18 19:56 Urine Total Protein < 4 mg/dL (5-11.8) L 06/21/18 19:56
[2018-06-24] MEDS: DOBUTREX DRIP 500MG/D5W 250ML 500 MG/250 ML BAG IV SCH ×2 (01:57→22:55)
[2018-06-24] MEDS: NITRO-BID 2% TP SCH ×4 (06:05→17:36)
[2018-06-24] MEDS: LASIX IV SCH ×2 (06:06→17:36)
[2018-06-24 06:19] LABS: BUN/Creatinine Ratio 13; Blood Urea Nitrogen 17 mg/dL (9-20); Calcium 8.7 mg/dL (8.4-10.2); Hemolysis Index 8
[2018-06-24] MEDS: DIOVAN PO SCH (09:32)
[2018-06-24] MEDS: PROCARDIA XL PO SCH (09:32)
[2018-06-24] MEDS: CORDARONE PO SCH (09:33)
[2018-06-24] MEDS: K-DUR PO SCH (09:33)
[2018-06-24] MEDS: PRADAXA PO SCH ×2 (09:33→22:58)
[2018-06-24] MEDS: TOPROL XL PO SCH (09:33)
[2018-06-24] MEDS: CATAPRES PO SCH ×2 (09:34→22:57)
--- NOTE | 2018-06-24 10:22 | Progress Note ---
Assessment and Plan 1. 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 2. 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 Paroxysmal atrial fibrillation 4. Chronic kidney disease 5. Essential hypertension Plan. Patient is currently stable continue IV inotropic agent patient's diuresing significantly continue present management Subjective Date of service: 06/24/18 Principal diagnosis: DESEAN on CKD Interval history: Patient states he is feeling better and breathing better Objective Vital Signs Temp Pulse Pulse Resp Resp BP BP 06/24/18 08:14 98.3 F 94 H 20 129/91 06/24/18 04:17 98.5 F 103 H 16 119/87 06/24/18 00:07 98.2 F 17 117/84 06/23/18 22:27 65 84/66 06/23/18 22:00 70 18 06/23/18 21:01 18 06/23/18 19:58 75 06/23/18 19:22 97.7 F 65 17 84/66 06/23/18 16:08 98.2 F 57 L 20 110/86 06/23/18 13:18 97.7 F 56 L 22 109/86 06/23/18 12:41 97.7 F 59 L 22 141/101 Pulse Ox 06/24/18 08:14 97 06/24/18 04:17 98 06/24/18 00:07 06/23/18 22:27 06/23/18 22:00 06/23/18 21:01 06/23/18 19:58 06/23/18 19:22 98 06/23/18 16:08 94 06/23/18 13:18 96 06/23/18 12:41 97 - Physical Examination General: Appears Well, No Apparent Distress HEENT: Positive: PERRL Neck: Positive: neck supple, trachea midline. Negative: JVD/HJR Cardiac: Positive: Regular Rate, S1/S2, PMI, Laterally Displaced Lungs: Positive: clear to auscultation, No Wheeze, Rales, Rhonchi Neuro: Positive: Grossly Intact, Weakness Abdomen: Positive: Distended Extremities: Absent: edema - Labs and Meds Comprehensive Metabolic Panel 06/24/18 Range/Units 04:49 Sodium 142 (137-145) mmol/L Potassium 3.4 L (3.6-5.0) mmol/L Chloride 100.7 (98-107) mmol/L Carbon Dioxide 30 (22-30) mmol/L BUN 17 (9-20) mg/dL Creatinine 1.3 (0.8-1.5) mg/dL Glucose 83 (75-100) mg/dL Calcium 8.7 (8.4-10.2) mg/dL
--- NOTE | 2018-06-24 12:02 | Progress Note ---
Assessment and Plan - Patient Problems (1) Acute on chronic systolic (congestive) heart failure Current Visit: Yes Status: Acute Plan to address problem: Continue with current diuresis regimen with lasix 60 mg IV BID. Patient is diuresing appropriately, Need to closely monitor his I/O and ensure that we maintain him net negative 1-1 /5L over 24 hour period to allow for appropriate fluid removal. (2) Hypokalemia Current Visit: Yes Status: Acute Plan to address problem: Will follow up on electrolytes. Metolazone was discontinued. Patient is diuresing well with the current lasix regimen. Will continue to monitor. (3) DESEAN (acute kidney injury) Current Visit: No Status: Acute Plan to address problem: Likely in the setting of acute cardiorenal syndrome. Agree with current regimen and diuretic plan. Renal function is showing improvement as we are diuresing. (4) Atrial fibrillation Current Visit: Yes Status: Acute Qualifiers: Plan to address problem: Rate control per cardiology recommendations. Subjective Date of service: 06/24/18 Principal diagnosis: DESEAN on CKD Interval history: Patient is doing well. No acute issues. Continues to diurese well. Labs noted and serum creatinine is decreased this am. Objective - Vital Signs Vital signs: Vital Signs - 12hr 06/24/18 06/24/18 06/24/18 00:07 04:17 08:14 Temperature 98.2 F 98.5 F 98.3 F Pulse Rate 103 H 94 H Respiratory 17 16 20 Rate Blood Pressure 117/84 119/87 129/91 O2 Sat by Pulse 98 97 Oximetry - General Appearance General appearance: well-developed, well-nourished EENT: mucous membranes moist Neck: no thyromegaly, supple Respiratory: Present: Decreased Breath Sounds Cardiology: regular, S1S2 Gastrointestinal: normal, normoactive bowel sounds Integumentary: no rash, warm and dry Neurologic: no focal deficit, no asterixis Musculoskeletal: deferred Psychiatric: mood/affect appropriate, cooperative - Lab 06/20/18 20:32 06/24/18 04:49 Most recent lab results Calcium 8.7 mg/dL (8.4-10.2) 06/24/18 04:49 Urine Creatinine 26.7 mg/dL (0.1-20.0) H 06/21/18 19:56 Urine Sodium 105 mmol/L 06/21/18 19:56 Urine Total Protein < 4 mg/dL (5-11.8) L 06/21/18 19:56 - Allied health notes Allied health notes reviewed: nursing
--- NOTE | 2018-06-24 13:53 | Progress Note ---
Assessment and Plan Assessment and plan: 53M with CHF, pw sob and pedal edema, says his diuretics at home were not working DESEAN (acute kidney injury) renal on board, improving with diuresis and cardiac ionotrope Acute on chronic systolic (congestive) heart failure -continue IV ionotrope, continue diuretics, cardiology consult appreciated Atrial fibrillation continue rate control meds Pulmonary edema due to CHF IV lasix 60mg bid. na/fluid restriction discussed. Hypokalemia; continue K supplements CCT 33 minutes History Interval history: Review of systems Constitutional: No fevers, no malaise, no joint pains CVS: co sob and pedal edema GI: No abdominal pain, no diarrhea, no vomiting, no constipation Respiratory: No shortness of breath, no wheezing, no coughing Hospitalist Physical - Physical exam Narrative exam: General.: Appears well, no distress, nontoxic HEENT: Moist mucous membranes, extraocular muscles intact, no lymphadenopathy Neck: supple Cardiac: S1-S2 heard Lungs: bilat crackles, diminshed air entry Abdomen: soft , nontender, distended with ascites, bowel sounds positive Extremities: severe bipedal edema Skin: no rash or lesions Neurologic: no gross focal deficits Psych: appropriate behavior, appropriate mood, corporative, judgment intact - Constitutional Vitals: Temp Pulse Resp BP Pulse Ox 98.2 F 90 20 119/75 93 06/24/18 11:40 06/24/18 11:40 06/24/18 11:40 06/24/18 11:40 06/24/18 11:40 General appearance: Present: no acute distress Results - Labs CBC & Chem 7: 06/20/18 20:32 06/24/18 04:49 Labs: Laboratory Last Values WBC 4.5 K/mm3 (4.5-11.0) 06/20/18 20:32 RBC 3.79 M/mm3 (3.65-5.03) 06/20/18 20:32 Hgb 10.9 gm/dl (11.8-15.2) L 06/20/18 20:32 Hct 33.2 % (35.5-45.6) L 06/20/18 20:32 MCV 88 fl (84-94) 06/20/18 20:32 MCH 29 pg (28-32) 06/20/18 20:32 MCHC 33 % (32-34) 06/20/18 20:32 RDW 16.2 % (13.2-15.2) H 06/20/18 20:32 Plt Count 215 K/mm3 (140-440) 06/20/18 20:32 Sodium 142 mmol/L (137-145) 06/24/18 04:49 Potassium 3.4 mmol/L (3.6-5.0) L 06/24/18 04:49 Chloride 100.7 mmol/L (98-107) 06/24/18 04:49 Carbon Dioxide 30 mmol/L (22-30) 06/24/18 04:49 Anion Gap 15 mmol/L 06/24/18 04:49 BUN 17 mg/dL (9-20) 06/24/18 04:49 Creatinine 1.3 mg/dL (0.8-1.5) 06/24/18 04:49 Estimated GFR > 60 ml/min 06/24/18 04:49 BUN/Creatinine Ratio 13 % 06/24/18 04:49 Glucose 83 mg/dL (75-100) 06/24/18 04:49 Calcium 8.7 mg/dL (8.4-10.2) 06/24/18 04:49 Total Creatine Kinase 190 units/L (55-170) H 06/21/18 11:42 CK-MB (CK-2) 3.0 ng/mL (0.0-4.0) 06/21/18 11:42 CK-MB (CK-2) Rel Index 1.5 (0-4) 06/21/18 11:42 Troponin T < 0.010 ng/mL (0.00-0.029) 06/21/18 11:42 NT-Pro-B Natriuret Pep 3389 pg/mL (0-900) H 06/20/18 20:32 Urine Color Yellow (Yellow) 06/21/18 19:56 Urine Turbidity Clear (Clear) 06/21/18 19:56 Urine pH 5.0 (5.0-7.0) 06/21/18 19:56 Ur Specific [place] 1.006 (1.003-1.030) 06/21/18 19:56 Urine Protein <15 mg/dl mg/dL (Negative) 06/21/18 19:56 Urine Glucose (UA) Neg mg/dL (Negative) 06/21/18 19:56 Urine Ketones Neg mg/dL (Negative) 06/21/18 19:56 Urine Blood Neg (Negative) 06/21/18 19:56 Urine Nitrite Neg (Negative) 06/21/18 19:56 Urine Bilirubin Neg (Negative) 06/21/18 19:56 Urine Urobilinogen < 2.0 mg/dL (<2.0) 06/21/18 19:56 Ur Leukocyte Esterase Neg (Negative) 06/21/18 19:56 Urine WBC (Auto) < 1.0 /HPF (0.0-6.0) 06/21/18 19:56 Urine RBC (Auto) 3.0 /HPF (0.0-6.0) 06/21/18 19:56 Urine Creatinine 26.7 mg/dL (0.1-20.0) H 06/21/18 19:56 Urine Sodium 105 mmol/L 06/21/18 19:56 Urine Total Protein < 4 mg/dL (5-11.8) L 06/21/18 19:56
[2018-06-25] MEDS: NITRO-BID 2% TP SCH ×4 (06:19→17:34)
[2018-06-25] MEDS: LASIX IV SCH ×2 (06:21→18:53)
[2018-06-25 07:52] LABS: BUN/Creatinine Ratio 12; Blood Urea Nitrogen 14 mg/dL (9-20); Calcium 8.8 mg/dL (8.4-10.2); Hemolysis Index 2
--- NOTE | 2018-06-25 10:07 | Progress Note ---
Assessment and Plan 1. 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 2. 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 Paroxysmal atrial fibrillation 4. Chronic kidney disease 5. Essential hypertension Plan. Patient is currently stable continue IV inotropic agent patient's diuresing significantly continue present management Plan on discharging home in the am Subjective Date of service: 06/25/18 Principal diagnosis: DESEAN on CKD Interval history: Patient states he is feeling better and breathing better Objective Vital Signs Temp Pulse Pulse Resp Resp BP Pulse Ox 06/25/18 08:14 98.0 F 63 18 111/70 99 06/25/18 04:07 97.8 F 18 119/68 06/24/18 23:41 97.3 F L 18 111/79 06/24/18 22:57 82 110/62 06/24/18 22:00 80 18 06/24/18 21:26 18 06/24/18 19:53 98.3 F 18 110/62 06/24/18 19:40 80 06/24/18 15:37 98.0 F 58 L 20 117/77 98 06/24/18 11:40 98.2 F 90 20 119/75 93 - Physical Examination General: Appears Well, No Apparent Distress HEENT: Positive: PERRL Neck: Positive: neck supple, trachea midline. Negative: JVD/HJR Cardiac: Positive: Reg Rate and Rhythm, Regular Rate, S1/S2, S3, PMI, Dilated, Laterally Displaced Lungs: Positive: clear to auscultation, No Wheeze, Rales, Rhonchi Neuro: Positive: Grossly Intact, Weakness Abdomen: Positive: Distended Extremities: Absent: edema - Labs and Meds Comprehensive Metabolic Panel 06/25/18 Range/Units 06:39 Sodium 141 (137-145) mmol/L Potassium 3.3 L (3.6-5.0) mmol/L Chloride 95.9 L (98-107) mmol/L Carbon Dioxide 33 H (22-30) mmol/L BUN 14 (9-20) mg/dL Creatinine 1.2 (0.8-1.5) mg/dL Glucose 81 (75-100) mg/dL Calcium 8.8 (8.4-10.2) mg/dL - Allied health notes Allied health notes reviewed: nursing
[2018-06-25] MEDS: CATAPRES PO SCH ×2 (10:35→22:46)
[2018-06-25] MEDS: DIOVAN PO SCH (10:35)
[2018-06-25] MEDS: TOPROL XL PO SCH (10:35)
[2018-06-25] MEDS: CORDARONE PO SCH (10:35)
[2018-06-25] MEDS: PROCARDIA XL PO SCH (10:35)
[2018-06-25] MEDS: K-DUR PO SCH (10:35)
[2018-06-25] MEDS: PRADAXA PO SCH ×2 (10:35→22:47)
--- NOTE | 2018-06-25 12:30 | Progress Note ---
Assessment and Plan - Patient Problems (1) Acute on chronic systolic (congestive) heart failure Current Visit: Yes Status: Acute Plan to address problem: Continue with current diuresis regimen with lasix 60 mg IV BID. Patient is diuresing appropriately, Need to closely monitor his I/O and ensure that we maintain him net negative 1-1 /5L over 24 hour period to allow for appropriate fluid removal. (2) Hypokalemia Current Visit: Yes Status: Acute Plan to address problem: Will follow up on electrolytes. Metolazone was discontinued. Patient is diuresing well with the current lasix regimen. Will continue to monitor. Replete potassium per protocol. (3) DESEAN (acute kidney injury) Current Visit: No Status: Acute Plan to address problem: Likely in the setting of acute cardiorenal syndrome. Agree with current regimen and diuretic plan. Renal function is showing improvement with serum creatinine continuing to show decrease. (4) Atrial fibrillation Current Visit: Yes Status: Acute Qualifiers: Plan to address problem: Rate control per cardiology recommendations. Subjective Date of service: 06/25/18 Principal diagnosis: DESEAN on CKD Interval history: No acute issues overnight, and he has been doing well with the current diuretic regimen. Continues on dobutamine gtt and lasix 60 mg IV BID. Labs are stable and his serum creatinine has improved. Objective - Vital Signs Vital signs: Vital Signs - 12hr 06/25/18 06/25/18 04:07 08:14 Temperature 97.8 F 98.0 F Pulse Rate 63 Respiratory 18 18 Rate Blood Pressure 119/68 111/70 O2 Sat by Pulse 99 Oximetry - General Appearance General appearance: well-developed, well-nourished, appears stated age EENT: ATNC, PERRL, mucous membranes moist Neck: no thyromegaly, no carotid bruit, supple Respiratory: Present: Clear to Ascultation, Normal Exam Cardiology: regular, normal heart rate Gastrointestinal: normal, normoactive bowel sounds Integumentary: no rash, warm and dry Neurologic: no focal deficit, no asterixis Musculoskeletal: deferred Psychiatric: mood/affect appropriate, cooperative - Lab 06/20/18 20:32 06/25/18 06:39 Most recent lab results Calcium 8.8 mg/dL (8.4-10.2) 06/25/18 06:39 Urine Creatinine 26.7 mg/dL (0.1-20.0) H 06/21/18 19:56 Urine Sodium 105 mmol/L 06/21/18 19:56 Urine Total Protein < 4 mg/dL (5-11.8) L 06/21/18 19:56 - Allied health notes Allied health notes reviewed: nursing
--- NOTE | 2018-06-25 13:44 | Progress Note ---
Hospitalist Physical - Constitutional Vitals: Temp Pulse Resp BP Pulse Ox 98.0 F 63 18 111/70 99 06/25/18 08:14 06/25/18 08:14 06/25/18 08:14 06/25/18 08:14 06/25/18 08:14 General appearance: Present: no acute distress Results - Labs CBC & Chem 7: 06/20/18 20:32 08 06:39 Labs: Laboratory Last Values WBC 4.5 K/mm3 (4.5-11.0) 06/20/18 20:32 RBC 3.79 M/mm3 (3.65-5.03) 06/20/18 20:32 Hgb 10.9 gm/dl (11.8-15.2) L 06/20/18 20:32 Hct 33.2 % (35.5-45.6) L 06/20/18 20:32 MCV 88 fl (84-94) 06/20/18 20:32 MCH 29 pg (28-32) 06/20/18 20:32 MCHC 33 % (32-34) 06/20/18 20:32 RDW 16.2 % (13.2-15.2) H 06/20/18 20:32 Plt Count 215 K/mm3 (140-440) 06/20/18 20:32 Sodium 141 mmol/L (137-145) 06/25/18 06:39 Potassium 3.3 mmol/L (3.6-5.0) L 06/25/18 06:39 Chloride 95.9 mmol/L (98-107) L 06/25/18 06:39 Carbon Dioxide 33 mmol/L (22-30) H 06/25/18 06:39 Anion Gap 15 mmol/L 06/25/18 06:39 BUN 14 mg/dL (9-20) 06/25/18 06:39 Creatinine 1.2 mg/dL (0.8-1.5) 06/25/18 06:39 Estimated GFR > 60 ml/min 06/25/18 06:39 BUN/Creatinine Ratio 12 % 06/25/18 06:39 Glucose 81 mg/dL (75-100) 06/25/18 06:39 Calcium 8.8 mg/dL (8.4-10.2) 06/25/18 06:39 Total Creatine Kinase 190 units/L (55-170) H 06/21/18 11:42 CK-MB (CK-2) 3.0 ng/mL (0.0-4.0) 06/21/18 11:42 CK-MB (CK-2) Rel Index 1.5 (0-4) 06/21/18 11:42 Troponin T < 0.010 ng/mL (0.00-0.029) 06/21/18 11:42 NT-Pro-B Natriuret Pep 3389 pg/mL (0-900) H 06/20/18 20:32 Urine Color Yellow (Yellow) 06/21/18 19:56 Urine Turbidity Clear (Clear) 06/21/18 19:56 Urine pH 5.0 (5.0-7.0) 06/21/18 19:56 Ur Specific [place] 1.006 (1.003-1.030) 06/21/18 19:56 Urine Protein <15 mg/dl mg/dL (Negative) 06/21/18 19:56 Urine Glucose (UA) Neg mg/dL (Negative) 06/21/18 19:56 Urine Ketones Neg mg/dL (Negative) 06/21/18 19:56 Urine Blood Neg (Negative) 06/21/18 19:56 Urine Nitrite Neg (Negative) 06/21/18 19:56 Urine Bilirubin Neg (Negative) 06/21/18 19:56 Urine Urobilinogen < 2.0 mg/dL (<2.0) 06/21/18 19:56 Ur Leukocyte Esterase Neg (Negative) 06/21/18 19:56 Urine WBC (Auto) < 1.0 /HPF (0.0-6.0) 06/21/18 19:56 Urine RBC (Auto) 3.0 /HPF (0.0-6.0) 06/21/18 19:56 Urine Creatinine 26.7 mg/dL (0.1-20.0) H 06/21/18 19:56 Urine Sodium 105 mmol/L 06/21/18 19:56 Urine Total Protein < 4 mg/dL (5-11.8) L 06/21/18 19:56
[2018-06-26] MEDS: NITRO-BID 2% TP SCH ×2 (06:27→10:43)
[2018-06-26] MEDS: LASIX IV SCH (06:28)
[2018-06-26 08:24] LABS: BUN/Creatinine Ratio 14; Blood Urea Nitrogen 18 mg/dL (9-20); Calcium 8.5 mg/dL (8.4-10.2); Hemolysis Index 2
[2018-06-26 09:04] VITALS: BP 100/78
--- NOTE | 2018-06-26 10:02 | Progress Note ---
Hospitalist Physical - Constitutional Vitals: Temp Pulse Resp BP Pulse Ox 97.5 F L 81 20 100/78 92 06/26/18 08:14 06/26/18 08:14 06/26/18 08:14 06/26/18 08:14 06/26/18 08:14 General appearance: Present: no acute distress Results - Labs CBC & Chem 7: 06/20/18 20:32 06/26/18 05:52 Labs: Laboratory Last Values WBC 4.5 K/mm3 (4.5-11.0) 06/20/18 20:32 RBC 3.79 M/mm3 (3.65-5.03) 06/20/18 20:32 Hgb 10.9 gm/dl (11.8-15.2) L 06/20/18 20:32 Hct 33.2 % (35.5-45.6) L 06/20/18 20:32 MCV 88 fl (84-94) 06/20/18 20:32 MCH 29 pg (28-32) 06/20/18 20:32 MCHC 33 % (32-34) 06/20/18 20:32 RDW 16.2 % (13.2-15.2) H 06/20/18 20:32 Plt Count 215 K/mm3 (140-440) 06/20/18 20:32 Sodium 144 mmol/L (137-145) 06/26/18 05:52 Potassium 3.6 mmol/L (3.6-5.0) 06/26/18 05:52 Chloride 97.7 mmol/L (98-107) L 06/26/18 05:52 Carbon Dioxide 31 mmol/L (22-30) H 06/26/18 05:52 Anion Gap 19 mmol/L 06/26/18 05:52 BUN 18 mg/dL (9-20) 06/26/18 05:52 Creatinine 1.3 mg/dL (0.8-1.5) 06/26/18 05:52 Estimated GFR > 60 ml/min 06/26/18 05:52 BUN/Creatinine Ratio 14 % 06/26/18 05:52 Glucose 88 mg/dL (75-100) 06/26/18 05:52 Calcium 8.5 mg/dL (8.4-10.2) 06/26/18 05:52 Total Creatine Kinase 190 units/L (55-170) H 06/21/18 11:42 CK-MB (CK-2) 3.0 ng/mL (0.0-4.0) 06/21/18 11:42 CK-MB (CK-2) Rel Index 1.5 (0-4) 06/21/18 11:42 Troponin T < 0.010 ng/mL (0.00-0.029) 06/21/18 11:42 NT-Pro-B Natriuret Pep 3389 pg/mL (0-900) H 06/20/18 20:32 Urine Color Yellow (Yellow) 06/21/18 19:56 Urine Turbidity Clear (Clear) 06/21/18 19:56 Urine pH 5.0 (5.0-7.0) 06/21/18 19:56 Ur Specific [place] 1.006 (1.003-1.030) 06/21/18 19:56 Urine Protein <15 mg/dl mg/dL (Negative) 06/21/18 19:56 Urine Glucose (UA) Neg mg/dL (Negative) 06/21/18 19:56 Urine Ketones Neg mg/dL (Negative) 06/21/18 19:56 Urine Blood Neg (Negative) 06/21/18 19:56 Urine Nitrite Neg (Negative) 06/21/18 19:56 Urine Bilirubin Neg (Negative) 06/21/18 19:56 Urine Urobilinogen < 2.0 mg/dL (<2.0) 06/21/18 19:56 Ur Leukocyte Esterase Neg (Negative) 06/21/18 19:56 Urine WBC (Auto) < 1.0 /HPF (0.0-6.0) 06/21/18 19:56 Urine RBC (Auto) 3.0 /HPF (0.0-6.0) 06/21/18 19:56 Urine Creatinine 26.7 mg/dL (0.1-20.0) H 06/21/18 19:56 Urine Sodium 105 mmol/L 06/21/18 19:56 Urine Total Protein < 4 mg/dL (5-11.8) L 06/21/18 19:56
[2018-06-26] MEDS: DIOVAN PO SCH (10:40)
[2018-06-26] MEDS: PROCARDIA XL PO SCH (10:40)
[2018-06-26] MEDS: K-DUR PO SCH (10:41)
[2018-06-26] MEDS: PRADAXA PO SCH (10:41)
[2018-06-26] MEDS: TOPROL XL PO SCH (10:42)
[2018-06-26] MEDS: CATAPRES PO SCH (10:42)
[2018-06-26] MEDS: CORDARONE PO SCH (10:46)
--- NOTE | 2018-06-26 10:47 | Discharge Summary ---
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
--- NOTE | 2018-06-26 12:59 | Progress Note ---
Assessment and Plan Acute on chronic systolic heart failure Aanasarca Ascities -moderate by abd u/s Severe Nonischemic Cardiomyopathy Persistent atrial fibrillation with ventricular pauses < 5 sec seen on telemetry rate controlled and currently treated with amiodarone and toprol XL. on Pradaxa for oral anticoagulation. Hypertension Acute renal failure Cardiac cath 05/2018 shows a severe nonischemic cardiomyopathy with left ventricular ejection fraction 10%. Recommend: Continue medical therapy for systolic heart failure. Sodium/Fluid restriction. Subjective Date of service: 06/26/18 Principal diagnosis: DESEAN on CKD Interval history: Patient has no complaints. Reports his breathing is better. No reported cardiac events overnight. Objective Vital Signs Temp Pulse Pulse Resp Resp BP BP 06/26/18 10:43 81 100/78 06/26/18 10:42 81 100/78 06/26/18 10:40 81 100/78 06/26/18 10:00 81 18 06/26/18 08:14 97.5 F L 81 20 100/78 06/26/18 04:24 98.1 F 83 18 86/52 06/26/18 04:00 98.1 F 74 18 86/52 06/26/18 00:51 98.3 F 61 18 84/60 06/25/18 22:56 70 06/25/18 22:46 66 84/44 06/25/18 22:00 70 18 06/25/18 21:53 18 06/25/18 19:52 98.0 F 66 18 84/44 06/25/18 16:49 97.8 F 71 18 97/55 Pulse Ox 06/26/18 10:43 06/26/18 10:42 06/26/18 10:40 06/26/18 10:00 06/26/18 08:14 92 06/26/18 04:24 100 06/26/18 04:00 100 06/26/18 00:51 99 06/25/18 22:56 06/25/18 22:46 06/25/18 22:00 06/25/18 21:53 06/25/18 19:52 96 06/25/18 16:49 97 - Physical Examination General: No Apparent Distress HEENT: Positive: PERRL Cardiac: Positive: irregularly irregular Neuro: Positive: Grossly Intact Abdomen: Positive: Soft, Distended Extremities: Absent: edema - Labs and Meds Comprehensive Metabolic Panel 08/13/18 Range/Units 05:52 Sodium 144 (137-145) mmol/L Potassium 3.6 (3.6-5.0) mmol/L Chloride 97.7 L (98-107) mmol/L Carbon Dioxide 31 H (22-30) mmol/L BUN 18 (9-20) mg/dL Creatinine 1.3 (0.8-1.5) mg/dL Glucose 88 (75-100) mg/dL Calcium 8.5 (8.4-10.2) mg/dL - Allied health notes Allied health notes reviewed: nursing
--- NOTE | 2018-06-26 19:20 | Progress Note ---
Assessment and Plan - Patient Problems (1) DESEAN (acute kidney injury) Status: Acute Plan to address problem: Superimposed on chronic kidney disease and kidney function has improved. Okay to discharge from renal standpoint. Patient to follow-up in the office in a couple of weeks. We'll check BMP every week before (2) Acute on chronic systolic (congestive) heart failure Status: Acute Plan to address problem: Much improved. Will need to be discharged on higher dose of diuretics. Also needs any follow-up (3) Atrial fibrillation Status: Acute Qualifiers: Plan to address problem: Continue medications (4) Hypokalemia Status: Acute Plan to address problem: Potassium improved. Continue potassium supplement and follow up as an outpatient Subjective Date of service: 06/26/18 Principal diagnosis: DESEAN on CKD Interval history: Patient seen lying in bed this morning. No new complaints. Denies chest pain or shortness of breath. He feels better. Lower extremity swelling improved Objective - Exam Narrative Exam: Middle aged -[place] male lying in bed in no acute distress HEENT: NCAT, pink oral mucous membrane Neck: Supple, no venous distention CVS: S1S2 RRR with no murmur, rub or gallop Chest: Clear to auscultation Abdomen: Protuberant, soft, nontender, no organomegaly, bowel sounds are present Extremities: Mild edema, hyperpigmentation both legs Neuro: Awake, alert no focal deficits - Vital Signs Vital signs: Vital Signs - 12hr 06/26/18 06/26/18 06/26/18 08:14 10:00 10:40 Temperature 97.5 F L Pulse Rate 81 81 81 Respiratory 20 Rate Respiratory 18 Rate [Bilateral Leg] Blood Pressure 100/78 100/78 O2 Sat by Pulse 92 Oximetry 06/26/18 06/26/18 10:42 10:43 Temperature Pulse Rate 81 81 Respiratory Rate Respiratory Rate [Bilateral Leg] Blood Pressure 100/78 100/78 O2 Sat by Pulse Oximetry - Lab 06/20/18 20:32 06/26/18 05:52 Most recent lab results Calcium 8.5 mg/dL (8.4-10.2) 06/26/18 05:52 Urine Creatinine 26.7 mg/dL (0.1-20.0) H 06/21/18 19:56 Urine Sodium 105 mmol/L 06/21/18 19:56 Urine Total Protein < 4 mg/dL (5-11.8) L 06/21/18 19:56
== END 2018-06-26 12:05 | disposition home or self-care (01) | DRG 682 ==
LOC: ED 20:07 → 4A 06-21 00:49
PROVIDERS: ADMIT Internal Medicine; ATTEND Internal Medicine
DX: N17.9 Acute kidney failure, unspecified (principal); I50.43 Acute on chronic combined systolic (congestive) and diastolic (congestive) heart failure; R18.8 Other ascites; I48.1 Persistent atrial fibrillation; I42.0 Dilated cardiomyopathy; I13.0 Hypertensive heart and chronic kidney disease with heart failure and stage 1 through stage 4 chronic kidney disease, or unspecified chronic kidney disease; E87.6 Hypokalemia; N18.9 Chronic kidney disease, unspecified; D64.9 Anemia, unspecified; Z82.49 Family history of ischemic heart disease and other diseases of the circulatory system; Z79.899 Other long term (current) drug therapy
CPT/HCPCS: 36415; 71046; 76700; 80048; 81001; 82550; 82553; 82570; 83880; 84156; 84300; 84484; 85027; 93005; 93010; 96374; A9270-GY; J1250; J1940; J2260

== ENCOUNTER 2018-08-18 08:20 | Inpatient (IN) | payer OTHER ==
[2018-08-18] MEDS ORDERED: CEPHULAC PO ONE (09:15)
--- NOTE | 2018-08-18 09:16 | Emergency Department Report ---
HPI - General Chief Complaint: Abdominal Pain Time Seen by Provider: 08/18/18 09:03 - HPI HPI: Room 26 The patient is a 53-year-old male presenting with a chief complaint of abdominal pain and constipation. The patient states she has had difficulty having a bowel movement for the past 6 months. The patient states he came to the ED 6 months ago for constipation was given a stool softener. The patient states she is only able to have a bowel movement when he takes a stool softener. The patient states her last bowel movement occurred last night. The patient states over the past 6 months she's noticed his abdomen becoming hard increased girth. Patient denies fever nausea or vomiting. Location: Abdomen Duration: 6 months Quality: Constipation Severity: Moderate Modifying factors: [see above] Context: [see above] Mode of transportation: Unknown ED Past Medical Hx - Past Medical History Hx Hypertension: Yes Hx Congestive Heart Failure: Yes Additional medical history: AFIB,EF 10-15%, Dilated cardiomyopathy,Edema - Surgical History Past Surgical History?: No - Family History Family history: no significant - Social History Smoking Status: Former Smoker (none 10 years) Substance Use Type: None (denies illicit drug use) - Medications Home Medications: Home Medications Medication Instructions Recorded Confirmed Last Taken Type NIFEdipine XL [Procardia Xl] 90 mg PO QDAY 03/30/17 06/23/18 04/25/17 History cloNIDine [Catapres] 0.2 mg PO BID 03/30/17 06/23/18 04/24/17 History Amiodarone [Cordarone 200 MG TAB] 200 mg PO QDAY #30 tablet 05/18/18 06/23/18 Unknown Rx AtorvaSTATin [Lipitor] 40 mg PO QHS #30 tablet 05/18/18 06/23/18 Unknown Rx Dabigatran [Pradaxa] 150 mg PO BID #60 capsule 05/18/18 06/23/18 Unknown Rx Metoprolol Xl [Metoprolol 25 mg PO QDAY #30 tablet 05/18/18 06/23/18 Unknown Rx SUCCINATE ER TAB] Valsartan [Diovan] 80 mg PO QDAY 30 Days tablet 05/18/18 06/23/18 Unknown Rx Furosemide [Lasix] 60 mg PO BID #180 tablet 06/26/18 Unknown Rx Potassium Chloride [K-Dur] 20 meq PO QDAY #30 tablet 06/26/18 Unknown Rx metOLazone [Zaroxolyn] 5 mg PO QDAY #14 tablet 06/26/18 Unknown Rx ED Review of Systems ROS: Stated complaint: STOMACH PAIN Other details as noted in HPI Constitutional: denies: fever Eyes: denies: eye pain ENT: denies: throat pain Respiratory: no symptoms reported Cardiovascular: denies: chest pain Endocrine: no symptoms reported Gastrointestinal: abdominal pain, constipation. denies: nausea, vomiting Genitourinary: denies: dysuria Musculoskeletal: denies: back pain Neurological: denies: headache Physical Exam - Physical Exam Vital Signs: Vital Signs 08/18/18 08/18/18 08/18/18 08:22 09:02 09:04 Temperature 97.5 F L Pulse Rate 112 H 125 H 108 H Respiratory 20 15 24 Rate Blood Pressure 128/94 129/92 O2 Sat by Pulse 96 Oximetry 08/18/18 08/18/18 09:05 09:06 Temperature Pulse Rate 109 H 119 H Respiratory 24 20 Rate Blood Pressure 129/92 129/92 O2 Sat by Pulse 100 Oximetry Physical Exam: GENERAL: The patient is well-developed well-nourished male lying on stretcher not appearing to be in acute distress. [] HEENT: Normocephalic. Atraumatic. Extraocular motions are intact. Patient has moist mucous membranes. NECK: Supple. Trachea midline CHEST/LUNGS: Clear to auscultation. There is no respiratory distress noted. HEART/CARDIOVASCULAR: Regular. There is no tachycardia. There is no gallop rub or murmur. ABDOMEN: Abdomen is soft, but protuberant. Patient has normal bowel sounds. SKIN: There is no rash. There is no diaphoresis. NEURO: The patient is awake, alert, and oriented. The patient is cooperative. The patient has normal speech MUSCULOSKELETAL: There is no evidence of acute injury. ED Course Vital Signs 08/18/18 08/18/18 08/18/18 08:22 09:02 09:04 Temperature 97.5 F L Pulse Rate 112 H 125 H 108 H Respiratory 20 15 24 Rate Blood Pressure 128/94 129/92 O2 Sat by Pulse 96 Oximetry 08/18/18 08/18/18 09:05 09:06 Temperature Pulse Rate 109 H 119 H Respiratory 24 20 Rate Blood Pressure 129/92 129/92 O2 Sat by Pulse 100 Oximetry ED Medical Decision Making - Lab Data Result diagrams: 08/18/18 08:48 08/18/18 08:48 Laboratory Tests 08/18/18 08/18/18 08/18/18 08:48 08:48 10:30 WBC 4.7 RBC 4.31 Hgb 11.7 L Hct 36.5 MCV 85 MCH 27 L MCHC 32 RDW 19.5 H Plt Count 219 Lymph % (Auto) 20.7 Clare % (Auto) 8.2 H Eos % (Auto) 0.7 Baso % (Auto) 0.9 Lymph # 1.0 L Clare # 0.4 Eos # 0.0 Baso # 0.0 Seg Neutrophils % 69.5 Seg Neutrophils # 3.2 APTT Sodium 141 Potassium 3.0 L Chloride 101.9 Carbon Dioxide 22 Anion Gap 20 BUN 21 H Creatinine 1.5 Estimated GFR 59 BUN/Creatinine Ratio 14 Glucose 104 H Calcium 8.6 Total Bilirubin 2.90 H AST 26 ALT 24 Alkaline Phosphatase 144 H Troponin T Total Protein 7.2 Albumin 3.7 L Albumin/Globulin Ratio 1.1 Urine Color Jennifer Urine Turbidity Clear Urine pH 5.0 Ur Specific [place] 1.016 Urine Protein 100 mg/dl Urine Glucose (UA) Neg Urine Ketones Neg Urine Blood Neg Urine Nitrite Neg Urine Bilirubin Neg Urine Urobilinogen 4.0 Ur Leukocyte Esterase Neg Urine WBC (Auto) 4.0 Urine RBC (Auto) < 1.0 U Epithel Cells (Auto) < 1.0 Hyaline Casts 12 Urine Mucus Few 08/18/18 08/18/18 12:24 12:24 WBC RBC Hgb Hct MCV MCH MCHC RDW Plt Count Lymph % (Auto) Clare % (Auto) Eos % (Auto) Baso % (Auto) Lymph # Clare # Eos # Baso # Seg Neutrophils % Seg Neutrophils # APTT 41.0 H Sodium Potassium Chloride Carbon Dioxide Anion Gap BUN Creatinine Estimated GFR BUN/Creatinine Ratio Glucose Calcium Total Bilirubin AST ALT Alkaline Phosphatase Troponin T < 0.010 Total Protein Albumin Albumin/Globulin Ratio Urine Color Urine Turbidity Urine pH Ur Specific [place] Urine Protein Urine Glucose (UA) Urine Ketones Urine Blood Urine Nitrite Urine Bilirubin Urine Urobilinogen Ur Leukocyte Esterase Urine WBC (Auto) Urine RBC (Auto) U Epithel Cells (Auto) Hyaline Casts Urine Mucus - Radiology Data Radiology results: report reviewed (CT abdomen and pelvis), image reviewed (CT abdomen and pelvis) [facility] [address] [place] [address] Cat Scan Report Signed Patient: ALYSSA BRISCOE MR#: [id number] : Acct:[id number] Age/Sex: 53 / M ADM Date: 08/18/18 Loc: ED Attending Dr: Ordering Physician: AMALIA MERINO MD Date of Service: 08/18/18 Procedure(s): CT abdomen pelvis w con Accession Number(s): [id number] cc: AMALIA MERINO MD CT abdomen and pelvis with contrast: Distended abdomen. Following IV contrast ministration transverse images were obtained from the lower chest and ischium. Coronal and sagittal 2-D reformatted images included. The visualized lung bases are clear. The liver and spleen appear generally unremarkable. There is no lobulation and no focal lesion. The gallbladder and pancreas appear normal. There is a large volume of ascites throughout the abdomen. The kidneys are normal in size and contour. No obstruction. No calculus. The opacified bowel and mesentery appears generally unremarkable. The abdominal aorta and its branches are unremarkable. Normal osseous structures. Impression: Large volume of ascites. No other significant findings. Transcribed By: [facility] Dictated By: JAMARI RIVERA MD Electronically Authenticated By: JAMARI RIVERA MD Signed Date/Time: 08/18/18 1043 DD/ 1038 TD/TT: 08/18/18 1043 - Differential Diagnosis constipation, partial small bowel destruction, Critical care attestation.: If time is entered above; I have spent that time in minutes in the direct care of this critically ill patient, excluding procedure time. ED Disposition Clinical Impression: Ascites, Acute abdominal pain Disposition: OP ADMIT IP TO THIS HOSP Is pt being admited?: Yes Does the pt Need Aspirin: No Condition: Fair Referrals: PRIMARY CAREMD [Primary Care Provider] - 3-5 Days Time of Disposition: 14:36
[2018-08-18] MEDS ORDERED: NACL 0.9% 1000 ML 1,000 ML IV ONE (09:17)
[2018-08-18 09:33] LABS: Basophils % (Auto) 0.9 % (0.0-1.8); Eosinophils % (Auto) 0.7 % (0.0-4.3); Hematocrit 36.5 % (35.5-45.6); Hemoglobin 11.7 gm/dl (11.8-15.2); Lymphocytes % (Auto) 20.7 % (13.4-35.0); Mean Corpuscular HGB Conc 32 % (32-34); Mean Corpuscular Hemoglobin 27 pg (28-32); Mean Corpuscular Volume 85 fl (84-94); Monocytes # (Auto) 0.4 K/mm3 (0.0-0.8); Monocytes % (Auto) 8.2 % (0.0-7.3); Platelet Count 219 K/mm3 (140-440); Red Blood Count 4.31 M/mm3 (3.65-5.03); Red Cell Distribution Width 19.5 % (13.2-15.2)
[2018-08-18 10:01] LABS: Albumin 3.7 g/dL (3.9-5); Calcium 8.6 mg/dL (8.4-10.2)
[2018-08-18] MEDS ORDERED: K-DUR PO ONE (10:02)
--- NOTE | 2018-08-18 11:01 | Cat Scan Report ---
CT abdomen and pelvis with contrast: Distended abdomen. Following IV contrast ministration transverse images were obtained from the lower chest and ischium. Coronal and sagittal 2-D reformatted images included. The visualized lung bases are clear. The liver and spleen appear generally unremarkable. There is no lobulation and no focal lesion. The gallbladder and pancreas appear normal. There is a large volume of ascites throughout the abdomen. The kidneys are normal in size and contour. No obstruction. No calculus. The opacified bowel and mesentery appears generally unremarkable. The abdominal aorta and its branches are unremarkable. Normal osseous structures. Impression: Large volume of ascites. No other significant findings.
[2018-08-18 11:37] LABS: Bilirubin,Urine NEG (Negative); Blood,Urine NEG (Negative); Color,Urine Amber (Yellow); Hyaline Casts,Urine 12 /LPF; Mucus,Urine FEW /HPF; RBC,Urine < 1.0 /HPF (0.0-6.0)
--- NOTE | 2018-08-18 14:08 | History and Physical Report ---
History of Present Illness Chief complaint: My stomach is swollen History of present illness: 53 YO Male with Obesity, HTN, Systolic CHF, Medication Noncompliance, Atrial Fib on Therapeutic Anticoagulation presents to ED for evaluation. Pt states that he has experienced swelling in his abdomen over the past 1 week with worsening symptoms over the same time fram. Pt denies fever, chills, CP, Palpitations, NVD, Trauma, Falls, Productive cough, hemoptysis, or recent ill contacts. Pt seen and evaluated in ED and found to have Ascites as well as CHF. Pt admitted to medical floor. IR consulted in ED for paracentesis. Past History Past Medical History: heart failure, hypertension Past Surgical History: No surgical history, Other (reviewed) Social history: single. denies: smoking, alcohol abuse Family history: no significant family history (reviewed) Medications and Allergies Allergies Allergy/AdvReac Type Severity Reaction Status Date / Time No Known Allergies Allergy Verified 10/15/13 02:00 Home Medications Medication Instructions Recorded Confirmed Last Taken Type NIFEdipine XL [Procardia Xl] 90 mg PO QDAY 03/30/17 06/23/18 04/25/17 History cloNIDine [Catapres] 0.2 mg PO BID 03/30/17 06/23/18 04/24/17 History Amiodarone [Cordarone 200 MG TAB] 200 mg PO QDAY #30 tablet 05/18/18 06/23/18 Unknown Rx AtorvaSTATin [Lipitor] 40 mg PO QHS #30 tablet 05/18/18 06/23/18 Unknown Rx Dabigatran [Pradaxa] 150 mg PO BID #60 capsule 05/18/18 06/23/18 Unknown Rx Metoprolol Xl [Metoprolol 25 mg PO QDAY #30 tablet 05/18/18 06/23/18 Unknown Rx SUCCINATE ER TAB] Valsartan [Diovan] 80 mg PO QDAY 30 Days tablet 05/18/18 06/23/18 Unknown Rx Furosemide [Lasix] 60 mg PO BID #180 tablet 06/26/18 Unknown Rx Potassium Chloride [K-Dur] 20 meq PO QDAY #30 tablet 06/26/18 Unknown Rx metOLazone [Zaroxolyn] 5 mg PO QDAY #14 tablet 06/26/18 Unknown Rx Review of Systems Constitutional: no weight loss, no weight gain, no chills Ears, nose, mouth and throat: neck lump, no ear pain, no ear discharge, no decreased hearing, no nasal congestion Cardiovascular: edema, no chest pain, no palpitations, no lightheadedness Respiratory: no cough, no cough with sputum, no excessive sputum, no hemoptysis Gastrointestinal: abdominal pain, no nausea, no diarrhea, no change in bowel habits, no BRBPR, no melena Genitourinary Male: no hematuria, no flank pain, no discharge, no urinary frequency Rectal: no pain, no incontinence, no bleeding Musculoskeletal: no neck pain, no shooting arm pain, no arm numbness/tingling Integumentary: no rash, no redness, no wounds Neurological: no transient paralysis, no paralysis, no weakness, no parathesias Psychiatric: no memory loss, no sleep disturbances, no hypersomnia, no change in libido Endocrine: no cold intolerance, no polyphagia, no excessive thirst, no thyroid mass Hematologic/Lymphatic: no easy bruising, no easy bleeding Allergic/Immunologic: no allergic rhinitis, no persistent infections, no anaphylaxis Exam - Constitutional Vitals: Temp Pulse Resp BP Pulse Ox 97.5 F L 105 H 26 H 129/92 99 08/18/18 08:22 08/18/18 10:00 08/18/18 09:24 08/18/18 10:02 08/18/18 10:01 General appearance: Present: mild distress, obese - EENT Eyes: Present: PERRL ENT: hearing intact, clear oral mucosa - Neck Neck: Present: supple, normal ROM - Respiratory Respiratory effort: labored Respiratory: bilateral: diminished - Cardiovascular Rhythm: regularly irregular Heart Sounds: Present: S1 & S2. Absent: rub, click - Extremities Extremities: pulses symmetrical, No edema Extremity abnormal: edema Peripheral Pulses: within normal limits - Abdominal General gastrointestinal: Present: soft, non-tender, non-distended, normal bowel sounds Male genitourinary: Present: normal - Integumentary Integumentary: Present: clear, warm, dry - Musculoskeletal Musculoskeletal: generalized weakness - Psychiatric Psychiatric: appropriate mood/affect, intact judgment & insight - Neurologic Neurologic: CNII-XII intact, moves all extremities Results - Labs CBC & Chem 7: 08/18/18 08:48 08/18/18 08:48 Labs: Abnormal lab results 08/18/18 08/18/18 08/18/18 Range/Units 08:48 08:48 12:24 Hgb 11.7 L (11.8-15.2) gm/dl MCH 27 L (28-32) pg RDW 19.5 H (13.2-15.2) % Holt % (Auto) 8.2 H (0.0-7.3) % Lymph # 1.0 L (1.2-5.4) K/mm3 APTT 41.0 H (24.2-36.6) Sec. Potassium 3.0 L (3.6-5.0) mmol/L BUN 21 H (9-20) mg/dL Glucose 104 H (75-100) mg/dL Total Bilirubin 2.90 H (0.1-1.2) mg/dL Alkaline Phosphatase 144 H (35-129) units/L Albumin 3.7 L (3.9-5) g/dL Assessment and Plan - Patient Problems (1) CHF exacerbation Current Visit: No Status: Acute Qualifiers: Qualified Code(s): I50.43 - Acute on chronic combined systolic (congestive) and diastolic (congestive) heart failure Plan to address problem: Stritc I/O, monitor uop q shift, daily weight, bnp, chest x ray,diuretic therapy , afterload reduction, monitor uop q shift to ensure negative fluid balance. (2) Ascites Current Visit: Yes Status: Acute Plan to address problem: IR consulted for paracentesis (3) Atrial fibrillation Current Visit: No Status: Acute Qualifiers: Atrial fibrillation type: persistent Plan to address problem: Continue therapeutic anticoagulation, rate control, supportive care (4) DVT prophylaxis Current Visit: Yes Status: Acute Plan to address problem: SCD to ble while in bed
[2018-08-18] MEDS ORDERED: TYLENOL PO PRN (14:13)
[2018-08-18] MEDS ORDERED: PROVENTIL IH PRN (14:13)
[2018-08-18] MEDS ORDERED: ZOFRAN IV PRN (14:13)
[2018-08-18] MEDS ORDERED: SODIUM CHLORIDE FLUSH SYRINGE 10 ML IV PRN (14:13)
[2018-08-18 14:47] LABS: INR 1.44 (0.87-1.13)
[2018-08-18] MEDS ORDERED: XYLOCAINE 1% 20 mL ONE (15:40)
--- NOTE | 2018-08-18 15:56 | History and Physical Report ---
History of Present Illness Date of examination: 08/18/18 Date of admission: 08/18/18 14:13 Chief complaint: distended abdomen Medications and Allergies Allergies Allergy/AdvReac Type Severity Reaction Status Date / Time No Known Allergies Allergy Verified 10/15/13 02:00 Home Medications Medication Instructions Recorded Confirmed Last Taken Type NIFEdipine XL [Procardia Xl] 90 mg PO QDAY 03/30/17 06/23/18 04/25/17 History cloNIDine [Catapres] 0.2 mg PO BID 03/30/17 06/23/18 04/24/17 History Amiodarone [Cordarone 200 MG TAB] 200 mg PO QDAY #30 tablet 05/18/18 06/23/18 Unknown Rx AtorvaSTATin [Lipitor] 40 mg PO QHS #30 tablet 05/18/18 06/23/18 Unknown Rx Dabigatran [Pradaxa] 150 mg PO BID #60 capsule 05/18/18 06/23/18 Unknown Rx Metoprolol Xl [Metoprolol 25 mg PO QDAY #30 tablet 05/18/18 06/23/18 Unknown Rx SUCCINATE ER TAB] Valsartan [Diovan] 80 mg PO QDAY 30 Days tablet 05/18/18 06/23/18 Unknown Rx Furosemide [Lasix] 60 mg PO BID #180 tablet 06/26/18 Unknown Rx Potassium Chloride [K-Dur] 20 meq PO QDAY #30 tablet 06/26/18 Unknown Rx metOLazone [Zaroxolyn] 5 mg PO QDAY #14 tablet 06/26/18 Unknown Rx Active Meds: Active Medications Acetaminophen (Tylenol) 650 mg PO Q4H PRN PRN Reason: Pain MILD(1-3)/Fever >100.5/GEE Albuterol (Proventil) 2.5 mg IH Q4HRT PRN PRN Reason: Shortness Of Breath Ondansetron HCl (Zofran) 4 mg IV Q8H PRN PRN Reason: Nausea And Vomiting Sodium Chloride (Sodium Chloride Flush Syringe 10 Ml) 10 ml IV BID KEITH Sodium Chloride (Sodium Chloride Flush Syringe 10 Ml) 10 ml IV PRN PRN PRN Reason: LINE FLUSH Exam Vital Signs Temp Pulse Resp BP Pulse Ox 97.5 F L 112 H 20 128/94 96 08/18/18 08:22 08/18/18 08:22 08/18/18 08:22 08/18/18 08:22 08/18/18 08:22 Results - Results Labs: Diabetes panel 08/18/18 Range/Units 08:48 Sodium 141 (137-145) mmol/L Potassium 3.0 L (3.6-5.0) mmol/L Chloride 101.9 (98-107) mmol/L Carbon Dioxide 22 (22-30) mmol/L BUN 21 H (9-20) mg/dL Creatinine 1.5 (0.8-1.5) mg/dL Glucose 104 H (75-100) mg/dL Calcium 8.6 (8.4-10.2) mg/dL AST 26 (5-40) units/L ALT 24 (7-56) units/L Alkaline Phosphatase 144 H (35-129) units/L Total Protein 7.2 (6.3-8.2) g/dL Albumin 3.7 L (3.9-5) g/dL Calcium panel 08/18/18 Range/Units 08:48 Calcium 8.6 (8.4-10.2) mg/dL Albumin 3.7 L (3.9-5) g/dL Pituitary panel 08/18/18 Range/Units 08:48 Sodium 141 (137-145) mmol/L Potassium 3.0 L (3.6-5.0) mmol/L Chloride 101.9 (98-107) mmol/L Carbon Dioxide 22 (22-30) mmol/L BUN 21 H (9-20) mg/dL Creatinine 1.5 (0.8-1.5) mg/dL Glucose 104 H (75-100) mg/dL Calcium 8.6 (8.4-10.2) mg/dL Adrenal panel 08/18/18 Range/Units 08:48 Sodium 141 (137-145) mmol/L Potassium 3.0 L (3.6-5.0) mmol/L Chloride 101.9 (98-107) mmol/L Carbon Dioxide 22 (22-30) mmol/L BUN 21 H (9-20) mg/dL Creatinine 1.5 (0.8-1.5) mg/dL Glucose 104 H (75-100) mg/dL Calcium 8.6 (8.4-10.2) mg/dL Total Bilirubin 2.90 H (0.1-1.2) mg/dL AST 26 (5-40) units/L ALT 24 (7-56) units/L Alkaline Phosphatase 144 H (35-129) units/L Total Protein 7.2 (6.3-8.2) g/dL Albumin 3.7 L (3.9-5) g/dL
--- NOTE | 2018-08-18 15:58 | Procedure Note ---
Date of procedure: 08/18/18 Pre-op diagnosis: ascites Post-op diagnosis: same Procedure: paracentesis Findings: straw colored fluid Anesthesia: local Surgeon: JAMARI RIVERA Estimated blood loss: none Pathology: list (120cc ascites) Specimen disposition: to lab Condition: stable Disposition: floor
[2018-08-18] MEDS ORDERED: XYLOCAINE 1% 20 mL INFILTRATI ONE (16:12)
--- NOTE | 2018-08-18 16:19 | Ultrasound Report ---
Paracentesis: Ascites. Ultrasound imaging of the abdomen demonstrated that most of the patient's fluid is on the left side. An optimal approach site was made although there is aggregate of bowel in all locations. The skin was cleansed and 1% lidocaine used for local anesthesia. A drape was placed. A small skin zeinab was made through which a 5-[place] Kumoeh catheter was successfully placed into the fluid pocket. 120 cc of fluid was initially removed for laboratory evaluation. A total of 1200 cc of straw-colored fluid was removed and discarded. The bowel prohibited removal of additional fluid from this location and the exam was terminated. There are no apparent patient complications.
[2018-08-18 17:39] LABS: Total Cells Counted 100 /mm3
[2018-08-19] MEDS: SODIUM CHLORIDE FLUSH SYRINGE 10 ML IV SCH ×3 (05:53→22:22)
--- NOTE | 2018-08-19 09:11 | Event Note ---
Date: 08/19/18 Paracentesis preformed by diagnostic radiologists yesterday with samples sent for labs.
[2018-08-19] MEDS: CATAPRES PO SCH ×2 (09:47→22:22)
[2018-08-19] MEDS: CORDARONE PO SCH (09:48)
[2018-08-19] MEDS: TOPROL XL PO SCH (09:48)
[2018-08-19] MEDS: DIOVAN PO SCH (09:49)
[2018-08-19] MEDS: ZAROXOLYN PO SCH (09:50)
[2018-08-19] MEDS: PRADAXA PO SCH ×2 (09:50→22:21)
[2018-08-19] MEDS: PROCARDIA XL PO SCH (09:50)
[2018-08-19] MEDS: K-DUR PO SCH (09:50)
[2018-08-19] MEDS ORDERED: LASIX PO SCH (10:00)
[2018-08-19 10:47] LABS: Calcium 8.6 mg/dL (8.4-10.2)
--- NOTE | 2018-08-19 13:35 | Progress Note ---
Assessment and Plan Assessment and plan: Ascites probably secondary to CHF -CT abd/pelvis neg for liver disease -Status post paracentesis -Ascitic fluid negative for infection Acute CHF exacerbation, likely systolic -On CHF protocol -Echo pending Chronic A/fib with RVR -Home medications resumed -On chronic oral anticoagulation with Pradaxa -Continue tele monitoring Transaminitis -exact cause unknown -CT abd/pelvis neg for liver disease Hypokalemia -Improving on repletion, will monitor HTN -Stable Disposition: For discharge when medically stable History Interval history: Patient reports feeling better. He denies prior history of liver disease. Hospitalist Physical - Constitutional Vitals: Temp Pulse Resp BP Pulse Ox 97.4 F L 121 H 20 113/83 100 08/19/18 05:16 08/19/18 09:47 08/19/18 10:00 08/19/18 05:16 08/19/18 05:16 General appearance: Present: no acute distress, obese - EENT Eyes: Present: PERRL, EOM intact ENT: hearing intact, clear oral mucosa - Neck Neck: Present: supple - Respiratory Respiratory effort: normal Respiratory: bilateral: CTA - Cardiovascular Rhythm: regularly irregular Heart Sounds: Present: S1 & S2 - Extremities Extremity abnormal: edema (in BLE) - Abdominal General gastrointestinal: soft, non-tender, distended (positive ascites), normal bowel sounds - Neurologic Neurologic: CNII-XII intact Results - Labs CBC & Chem 7: 08/18/18 08:48 08/19/18 09:09 Labs: Laboratory Last Values WBC 4.7 K/mm3 (4.5-11.0) 08/18/18 08:48 RBC 4.31 M/mm3 (3.65-5.03) 08/18/18 08:48 Hgb 11.7 gm/dl (11.8-15.2) L 08/18/18 08:48 Hct 36.5 % (35.5-45.6) 08/18/18 08:48 MCV 85 fl (84-94) 08/18/18 08:48 MCH 27 pg (28-32) L 08/18/18 08:48 MCHC 32 % (32-34) 08/18/18 08:48 RDW 19.5 % (13.2-15.2) H 08/18/18 08:48 Plt Count 219 K/mm3 (140-440) 08/18/18 08:48 Lymph % (Auto) 20.7 % (13.4-35.0) 08/18/18 08:48 Charles % (Auto) 8.2 % (0.0-7.3) H 08/18/18 08:48 Eos % (Auto) 0.7 % (0.0-4.3) 08/18/18 08:48 Baso % (Auto) 0.9 % (0.0-1.8) 08/18/18 08:48 Lymph # 1.0 K/mm3 (1.2-5.4) L 08/18/18 08:48 Charles # 0.4 K/mm3 (0.0-0.8) 08/18/18 08:48 Eos # 0.0 K/mm3 (0.0-0.4) 08/18/18 08:48 Baso # 0.0 K/mm3 (0.0-0.1) 08/18/18 08:48 Seg Neutrophils % 69.5 % (40.0-70.0) 08/18/18 08:48 Seg Neutrophils # 3.2 K/mm3 (1.8-7.7) 08/18/18 08:48 PT 18.1 Sec. (12.2-14.9) H 08/18/18 14:30 INR 1.44 (0.87-1.13) H 08/18/18 14:30 APTT 41.0 Sec. (24.2-36.6) H 08/18/18 12:24 Sodium 141 mmol/L (137-145) 08/19/18 09:09 Potassium 3.4 mmol/L (3.6-5.0) L 08/19/18 09:09 Chloride 103.4 mmol/L (98-107) 08/19/18 09:09 Carbon Dioxide 22 mmol/L (22-30) 08/19/18 09:09 Anion Gap 19 mmol/L 08/19/18 09:09 BUN 21 mg/dL (9-20) H 08/19/18 09:09 Creatinine 1.5 mg/dL (0.8-1.5) 08/19/18 09:09 Estimated GFR 59 ml/min 08/19/18 09:09 BUN/Creatinine Ratio 14 % 10/06/18 09:09 Glucose 108 mg/dL (75-100) H 08/19/18 09:09 Calcium 8.6 mg/dL (8.4-10.2) 08/19/18 09:09 Magnesium 2.00 mg/dL (1.7-2.3) 08/19/18 09:09 Total Bilirubin 2.90 mg/dL (0.1-1.2) H 08/18/18 08:48 AST 26 units/L (5-40) 08/18/18 08:48 ALT 24 units/L (7-56) 08/18/18 08:48 Alkaline Phosphatase 144 units/L (35-129) H 08/18/18 08:48 Troponin T < 0.010 ng/mL (0.00-0.029) 08/18/18 12:24 NT-Pro-B Natriuret Pep 4780 pg/mL (0-900) H 08/18/18 12:24 Total Protein 7.2 g/dL (6.3-8.2) 08/18/18 08:48 Albumin 3.7 g/dL (3.9-5) L 08/18/18 08:48 Albumin/Globulin Ratio 1.1 % 08/18/18 08:48 Urine Color Jennifer (Yellow) 08/18/18 10:30 Urine Turbidity Clear (Clear) 08/18/18 10:30 Urine pH 5.0 (5.0-7.0) 08/18/18 10:30 Ur Specific [place] 1.016 (1.003-1.030) 08/18/18 10:30 Urine Protein 100 mg/dl mg/dL (Negative) 08/18/18 10:30 Urine Glucose (UA) Neg mg/dL (Negative) 08/18/18 10:30 Urine Ketones Neg mg/dL (Negative) 08/18/18 10:30 Urine Blood Neg (Negative) 08/18/18 10:30 Urine Nitrite Neg (Negative) 08/18/18 10:30 Urine Bilirubin Neg (Negative) 08/18/18 10:30 Urine Urobilinogen 4.0 mg/dL (<2.0) 08/18/18 10:30 Ur Leukocyte Esterase Neg (Negative) 08/18/18 10:30 Urine WBC (Auto) 4.0 /HPF (0.0-6.0) 08/18/18 10:30 Urine RBC (Auto) < 1.0 /HPF (0.0-6.0) 08/18/18 10:30 U Epithel Cells (Auto) < 1.0 /HPF (0-13.0) 08/18/18 10:30 Hyaline Casts 12 /LPF 08/18/18 10:30 Urine Mucus Few /HPF 08/18/18 10:30 Fluid Type Ascitic 08/18/18 12:18 Fluid Color Yellow 08/18/18 12:18 Fluid Appearance Clear 08/18/18 12:18 Fluid WBC 111 /mm3 08/18/18 12:18 Fluid RBC 468 /mm3 08/18/18 12:18 Fluid Seg Neutrophils 16.0 % 08/18/18 12:18 Fluid Lymphocytes 20.0 % 08/18/18 12:18 Fluid Reactive Lymphs Not Reportable 08/18/18 12:18 Fluid Monocytes 64.0 % 08/18/18 12:18 Fluid Eosinophils Not Reportable 08/18/18 12:18 Fluid Basophils Not Reportable 08/18/18 12:18
[2018-08-19] MEDS: LASIX IV SCH (17:55)
[2018-08-19] MEDS ORDERED: CEPHULAC PO ONE (21:13)
[2018-08-20] MEDS: LASIX IV SCH ×2 (07:06→18:29)
[2018-08-20 07:36] LABS: Calcium 8.4 mg/dL (8.4-10.2)
[2018-08-20] MEDS: DIOVAN PO SCH (10:00)
[2018-08-20] MEDS: PROCARDIA XL PO SCH (10:00)
[2018-08-20] MEDS: TOPROL XL PO SCH (10:00)
[2018-08-20] MEDS: CATAPRES PO SCH ×2 (10:00→22:06)
[2018-08-20] MEDS ORDERED: ALBUTEIN IV ONE (12:21)
--- NOTE | 2018-08-20 13:13 | Progress Note ---
Assessment and Plan Assessment and plan: 53 YO Male with Obesity, HTN, Systolic CHF, Medication Noncompliance, Atrial Fib on Therapeutic Anticoagulation presents to ED for evaluation. Pt states that he has experienced swelling in his abdomen over the past 1 week with worsening symptoms over the same time fram. Pt denies fever, chills, CP, Palpitations, NVD, Trauma, Falls, Productive cough, hemoptysis, or recent ill contacts. Pt seen and evaluated in ED and found to have Ascites as well as CHF. Pt admitted to medical floor. IR consulted in ED for paracentesis. Ascites probably secondary to CHF -CT abd/pelvis neg for liver disease -Status post paracentesis -Ascitic fluid negative for infection Hypotension -Give a dose of albumin -Monitor closely Acute CHF exacerbation, likely systolic -On CHF protocol -Echo pending -Hold lasix following BP and worsening reanl function DESEAN - possible underlying cardiorenal syndrome - Nephrology eval Chronic A/fib with RVR -Home medications resumed -On chronic oral anticoagulation with Pradaxa -Continue tele monitoring Transaminitis -exact cause unknown -CT abd/pelvis neg for liver disease Hypokalemia -Improving on repletion, will monitor HTN -Stable Disposition: For discharge when medically stable History Interval history: Patient seen and examined, no acute distress. ambulating, denies any abdominal pain, reports some improvement including now able to move bowel Hospitalist Physical - Physical exam Narrative exam: VITAL SIGNS: Reviewed. GENERAL: The patient appeared well nourished and normally developed. Vital signs as documented. HEAD: No signs of head trauma. EYES: Pupils are equal. Extraocular motions intact. EARS: Hearing grossly intact. MOUTH: Oropharynx is normal. NECK: No adenopathy, no JVD. CHEST: Chest with clear breath sounds bilaterally. No wheezes, rales, or rhonchi. CARDIAC: Regular rate and rhythm. S1 and S2, without murmurs, gallops, or rubs. VASCULAR: Trace Edema. Peripheral pulses normal and equal in all extremities. ABDOMEN: Soft, without detectable tenderness. protubrant. postive fluid shift No rebound or guarding, and no masses palpated. Bowel Sounds normal. MUSCULOSKELETAL: Good range of motion of all major joints. Extremities without clubbing, cyanosis. Trace edema. NEUROLOGIC EXAM: Alert and oriented x 3. No focal sensory or strength deficits. Speech normal. Follows commands. PSYCHIATRIC: Mood normal. SKIN: No rash or lesions. - Constitutional Vitals: Temp Pulse Resp BP Pulse Ox 97.4 F L 90 20 107/68 98 08/20/18 12:44 08/20/18 12:44 08/20/18 12:44 08/20/18 12:44 08/20/18 12:44 General appearance: Present: no acute distress, obese Results - Labs CBC & Chem 7: 08/18/18 08:48 08/20/18 06:48 Labs: Laboratory Last Values WBC 4.7 K/mm3 (4.5-11.0) 08/18/18 08:48 RBC 4.31 M/mm3 (3.65-5.03) 08/18/18 08:48 Hgb 11.7 gm/dl (11.8-15.2) L 08/18/18 08:48 Hct 36.5 % (35.5-45.6) 08/18/18 08:48 MCV 85 fl (84-94) 08/18/18 08:48 MCH 27 pg (28-32) L 08/18/18 08:48 MCHC 32 % (32-34) 08/18/18 08:48 RDW 19.5 % (13.2-15.2) H 08/18/18 08:48 Plt Count 219 K/mm3 (140-440) 08/18/18 08:48 Lymph % (Auto) 20.7 % (13.4-35.0) 08/18/18 08:48 [place] % (Auto) 8.2 % (0.0-7.3) H 08/18/18 08:48 Eos % (Auto) 0.7 % (0.0-4.3) 08/18/18 08:48 Baso % (Auto) 0.9 % (0.0-1.8) 08/18/18 08:48 Lymph # 1.0 K/mm3 (1.2-5.4) L 08/18/18 08:48 [place] # 0.4 K/mm3 (0.0-0.8) 08/18/18 08:48 Eos # 0.0 K/mm3 (0.0-0.4) 08/18/18 08:48 Baso # 0.0 K/mm3 (0.0-0.1) 08/18/18 08:48 Seg Neutrophils % 69.5 % (40.0-70.0) 08/18/18 08:48 Seg Neutrophils # 3.2 K/mm3 (1.8-7.7) 08/18/18 08:48 PT 18.1 Sec. (12.2-14.9) H 08/18/18 14:30 INR 1.44 (0.87-1.13) H 08/18/18 14:30 APTT 41.0 Sec. (24.2-36.6) H 08/18/18 12:24 Sodium 140 mmol/L (137-145) 08/20/18 06:48 Potassium 3.3 mmol/L (3.6-5.0) L 08/20/18 06:48 Chloride 103.3 mmol/L (98-107) 08/20/18 06:48 Carbon Dioxide 23 mmol/L (22-30) 08/20/18 06:48 Anion Gap 17 mmol/L 08/20/18 06:48 BUN 24 mg/dL (9-20) H 08/20/18 06:48 Creatinine 1.7 mg/dL (0.8-1.5) H 08/20/18 06:48 Estimated GFR 51 ml/min 08/20/18 06:48 BUN/Creatinine Ratio 14 % 08/20/18 06:48 Glucose 100 mg/dL (75-100) 08/20/18 06:48 Calcium 8.4 mg/dL (8.4-10.2) 08/20/18 06:48 Magnesium 2.00 mg/dL (1.7-2.3) 08/19/18 09:09 Total Bilirubin 2.90 mg/dL (0.1-1.2) H 08/18/18 08:48 AST 26 units/L (5-40) 08/18/18 08:48 ALT 24 units/L (7-56) 08/18/18 08:48 Alkaline Phosphatase 144 units/L (35-129) H 08/18/18 08:48 Troponin T < 0.010 ng/mL (0.00-0.029) 08/18/18 12:24 NT-Pro-B Natriuret Pep 4780 pg/mL (0-900) H 08/18/18 12:24 Total Protein 7.2 g/dL (6.3-8.2) 08/18/18 08:48 Albumin 3.7 g/dL (3.9-5) L 08/18/18 08:48 Albumin/Globulin Ratio 1.1 % 08/18/18 08:48 Urine Color Jennifer (Yellow) 08/18/18 10:30 Urine Turbidity Clear (Clear) 08/18/18 10:30 Urine pH 5.0 (5.0-7.0) 08/18/18 10:30 Ur Specific [place] 1.016 (1.003-1.030) 08/18/18 10:30 Urine Protein 100 mg/dl mg/dL (Negative) 08/18/18 10:30 Urine Glucose (UA) Neg mg/dL (Negative) 08/18/18 10:30 Urine Ketones Neg mg/dL (Negative) 08/18/18 10:30 Urine Blood Neg (Negative) 08/18/18 10:30 Urine Nitrite Neg (Negative) 08/18/18 10:30 Urine Bilirubin Neg (Negative) 08/18/18 10:30 Urine Urobilinogen 4.0 mg/dL (<2.0) 08/18/18 10:30 Ur Leukocyte Esterase Neg (Negative) 08/18/18 10:30 Urine WBC (Auto) 4.0 /HPF (0.0-6.0) 08/18/18 10:30 Urine RBC (Auto) < 1.0 /HPF (0.0-6.0) 08/18/18 10:30 U Epithel Cells (Auto) < 1.0 /HPF (0-13.0) 08/18/18 10:30 Hyaline Casts 12 /LPF 08/18/18 10:30 Urine Mucus Few /HPF 08/18/18 10:30 Fluid Type Ascitic 08/18/18 12:18 Fluid Color Yellow 08/18/18 12:18 Fluid Appearance Clear 08/18/18 12:18 Fluid WBC 111 /mm3 08/18/18 12:18 Fluid RBC 468 /mm3 08/18/18 12:18 Fluid Seg Neutrophils 16.0 % 08/18/18 12:18 Fluid Lymphocytes 20.0 % 08/18/18 12:18 Fluid Reactive Lymphs Not Reportable 08/18/18 12:18 Fluid Monocytes 64.0 % 10/05/18 12:18 Fluid Eosinophils Not Reportable 08/18/18 12:18 Fluid Basophils Not Reportable 08/18/18 12:18 - Imaging and Cardiology CT scan - abdomen: image reviewed (fluid. normal liver)
--- NOTE | 2018-08-20 14:59 | Ultrasound Report ---
FINAL REPORT EXAM: US ABDOMEN COMPLETE HISTORY: elevated LFT, pls assess for CLD TECHNIQUE: Sonography of the abdomen performed. PRIORS: None. FINDINGS: The liver appears enlarged. There is mild ascites. No focal liver lesion seen. There is no intra- or extrahepatic biliary dilatation. The proximal CBD is 4.1 mm. The the The gallbladder wall is abnormally thickened measuring 9 mm. I cannot confirm any cholelithiasis or pericholecystic fluid. The visualized pancreas is unremarkable. The spleen is normal. The visualized aorta has a normal caliber. The visualized inferior vena cava is patent. There is no hydronephrosis. IMPRESSION: Prominent gallbladder wall thickening measuring 9 mm. No cholelithiasis seen. Hepatomegaly with mild ascites.
[2018-08-20] MEDS: CORDARONE PO SCH (15:14)
[2018-08-20] MEDS: ZAROXOLYN PO SCH (15:14)
[2018-08-20] MEDS: SODIUM CHLORIDE FLUSH SYRINGE 10 ML IV SCH ×2 (15:15→22:06)
[2018-08-20] MEDS: K-DUR PO SCH (15:33)
[2018-08-20] MEDS: PRADAXA PO SCH ×2 (18:29→22:05)
[2018-08-20] MEDS ORDERED: CEPHULAC PO ONE (22:00)
[2018-08-21] MEDS: LASIX IV SCH (08:05)
[2018-08-21 08:11] LABS: Hematocrit 35.5 % (35.5-45.6); Hemoglobin 11.3 gm/dl (11.8-15.2); Mean Corpuscular HGB Conc 32 % (32-34); Mean Corpuscular Hemoglobin 27 pg (28-32); Mean Corpuscular Volume 84 fl (84-94); Platelet Count 212 K/mm3 (140-440); Red Blood Count 4.22 M/mm3 (3.65-5.03); Red Cell Distribution Width 19.4 % (13.2-15.2)
--- NOTE | 2018-08-21 08:22 | Consultation ---
History of Present Illness - Reason for Consult Consult date: 08/21/18 acute renal failure Requesting physician: JESS SCHULER - History of Present Illness 53 YO Male with Obesity, HTN, Systolic CHF, Medication Noncompliance, Atrial Fib on Therapeutic Anticoagulation presents to ED for evaluation. Pt states that he has experienced swelling in his abdomen over the past 1 week with worsening symptoms over the same time frame. Pt denies fever, chills, CP, Palpitations, NVD, Trauma, Falls, Productive cough, hemoptysis, or recent ill contacts. Pt seen and evaluated in ED and found to have Ascites as well as CHF. Pt admitted to medical floor. S/P diagnostic paracentesis by IR . patient denies NSIAD intake . Denies knowledge of renal dysfunction . His creatinine noted to be ranging between 1.4 to 1.6 in 2017 and 2018 Past History Past Medical History: heart failure, hypertension Past Surgical History: No surgical history, Other (reviewed) Social history: single. denies: smoking, alcohol abuse Family history: no significant family history (reviewed) Medications and Allergies Allergies Allergy/AdvReac Type Severity Reaction Status Date / Time No Known Allergies Allergy Verified 10/15/13 02:00 Home Medications Medication Instructions Recorded Confirmed Last Taken Type NIFEdipine XL [Procardia Xl] 90 mg PO QDAY 03/30/17 06/23/18 04/25/17 History cloNIDine [Catapres] 0.2 mg PO BID 03/30/17 06/23/18 04/24/17 History Amiodarone [Cordarone 200 MG TAB] 200 mg PO QDAY #30 tablet 05/18/18 06/23/18 Unknown Rx AtorvaSTATin [Lipitor] 40 mg PO QHS #30 tablet 05/18/18 06/23/18 Unknown Rx Dabigatran [Pradaxa] 150 mg PO BID #60 capsule 05/18/18 06/23/18 Unknown Rx Metoprolol Xl [Metoprolol 25 mg PO QDAY #30 tablet 05/18/18 06/23/18 Unknown Rx SUCCINATE ER TAB] Valsartan [Diovan] 80 mg PO QDAY 30 Days tablet 05/18/18 06/23/18 Unknown Rx Furosemide [Lasix] 60 mg PO BID #180 tablet 06/26/18 Unknown Rx Potassium Chloride [K-Dur] 20 meq PO QDAY #30 tablet 08/13/18 Unknown Rx metOLazone [Zaroxolyn] 5 mg PO QDAY #14 tablet 06/26/18 Unknown Rx Active Meds: Active Medications Acetaminophen (Tylenol) 650 mg PO Q4H PRN PRN Reason: Pain MILD(1-3)/Fever >100.5/GEE Albuterol (Proventil) 2.5 mg IH Q4HRT PRN PRN Reason: Shortness Of Breath Amiodarone HCl (Cordarone) 200 mg PO QDAY [facility] Last Admin: 08/20/18 15:14 Dose: 200 mg Atorvastatin Calcium (Lipitor) 40 mg PO QHS [facility] Last Admin: 08/20/18 22:05 Dose: 40 mg Clonidine HCl (Catapres) 0.2 mg PO BID [facility] Last Admin: 08/20/18 22:06 Dose: Not Given Dabigatran (Pradaxa) 150 mg PO BID [facility]; Protocol Last Admin: 08/20/18 22:05 Dose: 150 mg Furosemide (Lasix) 60 mg PO 0600,1800 [facility] Metolazone (Zaroxolyn) 5 mg PO QDAY [facility] Last Admin: 08/20/18 15:14 Dose: 5 mg Metoprolol Succinate (Toprol Xl) 25 mg PO QDAY [facility] Last Admin: 08/20/18 10:00 Dose: Not Given Nifedipine (Procardia Xl) 90 mg PO QDAY [facility] Last Admin: 08/20/18 10:00 Dose: Not Given Ondansetron HCl (Zofran) 4 mg IV Q8H PRN PRN Reason: Nausea And Vomiting Potassium Chloride (K-Dur) 20 meq PO QDAY [facility] Last Admin: 08/20/18 15:33 Dose: 20 meq Sodium Chloride (Sodium Chloride Flush Syringe 10 Ml) 10 ml IV BID [facility] Last Admin: 08/20/18 22:06 Dose: 10 ml Sodium Chloride (Sodium Chloride Flush Syringe 10 Ml) 10 ml IV PRN PRN PRN Reason: LINE FLUSH Valsartan (Diovan) 80 mg PO QDAY [facility] Last Admin: 08/20/18 10:00 Dose: Not Given Review of Systems All systems: negative (except as noted above) Exam - Vital Signs Vital signs: Vital Signs Temp Pulse Resp BP Pulse Ox 97.5 F L 112 H 20 128/94 96 08/18/18 08:22 08/18/18 08:22 08/18/18 08:22 08/18/18 08:22 08/18/18 08:22 - General Appearance General appearance: well-developed, well-nourished, appears stated age EENT: PERRL, mucous membranes moist Neck: Present: neck supple, trachea midline. Absent: JVD/HJR, Masses Respiratory: Clear to Ascultation Heart: irregularly irregular Gastrointestinal: Present: normal, normoactive bowel sounds, distended Integumentary: other (1+ edema . Chronic skin changes noted both legs ) Results - Lab Results 08/18/18 08:48 08/20/18 06:48 Most recent lab results Calcium 8.4 mg/dL (8.4-10.2) 08/20/18 06:48 Magnesium 2.00 mg/dL (1.7-2.3) 08/19/18 09:09 Assessment and Plan Impression: * Renal insufficiency . Most likely chronic . baseline creatinine seems to be approx 1.5 * Chronic Atrial fibrillation * Ascites * CHF * Hypertension Recommendation: * Check UA and Renal ultrasound * Check vasculitis w/u * He may have underlying hypertensive nephrosclerosis * Need to consider cardio-renal syndrome as well * Avoid nephrotoxins * Monitor fluid status and electrolytes closely * Thanks, Shall follow along with you
[2018-08-21] MEDS: K-DUR PO SCH (09:45)
[2018-08-21] MEDS: CORDARONE PO SCH (09:45)
[2018-08-21] MEDS: TOPROL XL PO SCH (09:53)
[2018-08-21] MEDS: CATAPRES PO SCH ×2 (09:54→21:59)
[2018-08-21] MEDS: DIOVAN PO SCH (09:54)
[2018-08-21] MEDS: LASIX PO SCH ×2 (09:55→17:59)
[2018-08-21] MEDS: PROCARDIA XL PO SCH (09:55)
[2018-08-21] MEDS: PRADAXA PO SCH ×2 (10:02→21:59)
[2018-08-21] MEDS: ZAROXOLYN PO SCH (10:03)
[2018-08-21] MEDS: SODIUM CHLORIDE FLUSH SYRINGE 10 ML IV SCH ×2 (10:03→21:59)
[2018-08-21 10:27] LABS: Hepatitis B Core IgM Non-Reactive (NonReactive); Hepatitis B Surface Antigen Non-Reactive (Negative); Hepatitis C Virus Antibody Non-Reactive (NonReactive)
--- NOTE | 2018-08-21 10:41 | Consultation ---
History of Present Illness Consult date: 08/21/18 Consult reason: congestive heart failure History of present illness: Mr De Santiago is a 53 year old man with severe nonischemic cardiomyopathy, ejection fraction 10%. He also has chronic atrial fibrillation and is on pradaxa for oral anticoagulation therapy. Patient presented to this hospital with abdominal distension and decompensated heart failure. Further workup revealed significant ascities and he has since undergone a paracentesis. 1200cc of fluid were removed. He denies chest pain and palpitations. Telemetry shows atrial fibrillation with a well controlled ventricular rate. Medications and Allergies Allergies Allergy/AdvReac Type Severity Reaction Status Date / Time No Known Allergies Allergy Verified 10/15/13 02:00 Home Medications Medication Instructions Recorded Confirmed Last Taken Type NIFEdipine XL [Procardia Xl] 90 mg PO QDAY 03/30/17 06/23/18 04/25/17 History cloNIDine [Catapres] 0.2 mg PO BID 03/30/17 06/23/18 04/24/17 History Amiodarone [Cordarone 200 MG TAB] 200 mg PO QDAY #30 tablet 05/18/18 06/23/18 Unknown Rx AtorvaSTATin [Lipitor] 40 mg PO QHS #30 tablet 05/18/18 06/23/18 Unknown Rx Dabigatran [Pradaxa] 150 mg PO BID #60 capsule 05/18/18 06/23/18 Unknown Rx Metoprolol Xl [Metoprolol 25 mg PO QDAY #30 tablet 05/18/18 06/23/18 Unknown Rx SUCCINATE ER TAB] Valsartan [Diovan] 80 mg PO QDAY 30 Days tablet 05/18/18 06/23/18 Unknown Rx Furosemide [Lasix] 60 mg PO BID #180 tablet 06/26/18 Unknown Rx Potassium Chloride [K-Dur] 20 meq PO QDAY #30 tablet 06/26/18 Unknown Rx metOLazone [Zaroxolyn] 5 mg PO QDAY #14 tablet 06/26/18 Unknown Rx Active Meds: Active Medications Acetaminophen (Tylenol) 650 mg PO Q4H PRN PRN Reason: Pain MILD(1-3)/Fever >100.5/GEE Albuterol (Proventil) 2.5 mg IH Q4HRT PRN PRN Reason: Shortness Of Breath Amiodarone HCl (Cordarone) 200 mg PO QDAY [facility] Last Admin: 08/21/18 09:45 Dose: 200 mg Atorvastatin Calcium (Lipitor) 40 mg PO QHS [facility] Last Admin: 08/20/18 22:05 Dose: 40 mg Clonidine HCl (Catapres) 0.2 mg PO BID [facility] Last Admin: 08/21/18 09:54 Dose: Not Given Dabigatran (Pradaxa) 150 mg PO BID [facility]; Protocol Last Admin: 08/21/18 10:02 Dose: 150 mg Furosemide (Lasix) 60 mg PO 0600,1800 [facility] Last Admin: 08/21/18 09:55 Dose: Not Given Metolazone (Zaroxolyn) 5 mg PO QDAY [facility] Last Admin: 08/21/18 10:03 Dose: 5 mg Metoprolol Succinate (Toprol Xl) 25 mg PO QDAY [facility] Last Admin: 08/21/18 09:53 Dose: Not Given Nifedipine (Procardia Xl) 90 mg PO QDAY [facility] Last Admin: 08/21/18 09:55 Dose: Not Given Ondansetron HCl (Zofran) 4 mg IV Q8H PRN PRN Reason: Nausea And Vomiting Potassium Chloride (K-Dur) 20 meq PO QDAY [facility] Last Admin: 08/21/18 09:45 Dose: 20 meq Sodium Chloride (Sodium Chloride Flush Syringe 10 Ml) 10 ml IV BID [facility] Last Admin: 08/21/18 10:03 Dose: 10 ml Sodium Chloride (Sodium Chloride Flush Syringe 10 Ml) 10 ml IV PRN PRN PRN Reason: LINE FLUSH Valsartan (Diovan) 80 mg PO QDAY [facility] Last Admin: 08/21/18 09:54 Dose: Not Given Physical Examination Vital Signs Temp Pulse Resp BP Pulse Ox 97.5 F L 112 H 20 128/94 96 08/18/18 08:22 08/18/18 08:22 08/18/18 08:22 08/18/18 08:22 08/18/18 08:22 General appearance: no acute distress HEENT: Positive: PERRL Cardiac: Positive: irregularly irregular Lungs: Positive: Decreased Breath Sounds Neuro: Positive: Grossly Intact Results 08/21/18 07:34 08/20/18 06:48 CBC 08/21/18 Range/Units 07:34 WBC 4.3 L (4.5-11.0) K/mm3 RBC 4.22 (3.65-5.03) M/mm3 Hgb 11.3 L (11.8-15.2) gm/dl Hct 35.5 (35.5-45.6) % Plt Count 212 (140-440) K/mm3 Assessment and Plan Acute on chronic systolic heart failure Ascities s/p paracentesis Severe Nonischemic Cardiomyopathy Cardiac cath 05/2018 shows a severe nonischemic cardiomyopathy with left ventricular ejection fraction 10%. Persistent atrial fibrillation rate controlled and currently treated with amiodarone and toprol XL. on Pradaxa for oral anticoagulation. Hypertension Acute renal failure Recommend: Obtain 12 lead ECG. Aggressive medical therapy for systolic heart failure including a trial of IV milrinone therapy for 72 hrs. Sodium/Fluid restriction. Daily weight.
--- NOTE | 2018-08-21 12:36 | Progress Note ---
Assessment and Plan Assessment and plan: 53 YO Male with Obesity, HTN, Systolic CHF, Medication Noncompliance, Atrial Fib on Therapeutic Anticoagulation presents to ED for evaluation. Pt states that he has experienced swelling in his abdomen over the past 1 week with worsening symptoms over the same time fram. Pt denies fever, chills, CP, Palpitations, NVD, Trauma, Falls, Productive cough, hemoptysis, or recent ill contacts. Pt seen and evaluated in ED and found to have Ascites as well as CHF. Pt admitted to medical floor. IR consulted in ED for paracentesis. Acute CHF exacerbation, likely systolic -On CHF protocol -Echo pending -Consulted cardiology at this time patient was started on milrinone drip which also patient's telemetry for closer monitoring -Hold lasix following BP and worsening renal function - Daily weights DESEAN - possible underlying cardiorenal syndrome - Nephrology eval ongoing Severe nonischemic cardiomyopathy ejection function of 10% -Management as noted above cardiology consult. -Compliance with medication and diet discussed in detail with the patient. Ascites probably secondary to CHF -CT abd/pelvis neg for liver disease -Possible underlying passive hepatic congestion -Status post paracentesis -Fluid analysis appears transudate. -If no improvement with heart failure management may require additional thoracentesis Hypotension -Give a dose of albumin -Monitor closely Chronic A/fib with RVR -Home medications resumed -On chronic oral anticoagulation with Pradaxa -Continue tele monitoring Transaminitis -exact cause unknown -CT abd/pelvis neg for liver disease Hypokalemia -Improving on repletion, will monitor HTN -Stable Disposition: For discharge when medically stable History Interval history: Patient seen and examined, and reports mild respiratory distress with worsening of abdominal distention once again. Any abdominal pain, reports some improvement including now able to move bowel Hospitalist Physical - Physical exam Narrative exam: VITAL SIGNS: Reviewed. GENERAL: The patient appeared well nourished and normally developed. Vital signs as documented. HEAD: No signs of head trauma. EYES: Pupils are equal. Extraocular motions intact. EARS: Hearing grossly intact. MOUTH: Oropharynx is normal. NECK: No adenopathy, no JVD. CHEST: Chest with clear breath sounds bilaterally. No wheezes, rales, or rhonchi. CARDIAC: Regular rate and rhythm. S1 and S2, without murmurs, gallops, or rubs. VASCULAR: Trace Edema. Peripheral pulses normal and equal in all extremities. ABDOMEN: Soft, without detectable tenderness. protubrant. postive fluid shift No rebound or guarding, and no masses palpated. Bowel Sounds normal. MUSCULOSKELETAL: Good range of motion of all major joints. Extremities without clubbing, cyanosis. Trace left greater than right edema. NEUROLOGIC EXAM: Alert and oriented x 3. No focal sensory or strength deficits. Speech normal. Follows commands. PSYCHIATRIC: Mood normal. SKIN: No rash or lesions. - Constitutional Vitals: Temp Pulse Resp BP Pulse Ox 97.8 F 75 22 101/59 95 08/21/18 05:47 08/21/18 09:53 08/21/18 05:47 08/21/18 09:53 08/21/18 05:47 General appearance: Present: no acute distress Results - Labs CBC & Chem 7: 08/21/18 07:34 08/20/18 06:48 Labs: Laboratory Last Values WBC 4.3 K/mm3 (4.5-11.0) L 08/21/18 07:34 RBC 4.22 M/mm3 (3.65-5.03) 08/21/18 07:34 Hgb 11.3 gm/dl (11.8-15.2) L 08/21/18 07:34 Hct 35.5 % (35.5-45.6) 08/21/18 07:34 MCV 84 fl (84-94) 08/21/18 07:34 MCH 27 pg (28-32) L 08/21/18 07:34 MCHC 32 % (32-34) 08/21/18 07:34 RDW 19.4 % (13.2-15.2) H 08/21/18 07:34 Plt Count 212 K/mm3 (140-440) 08/21/18 07:34 Lymph % (Auto) 20.7 % (13.4-35.0) 08/18/18 08:48 [place] % (Auto) 8.2 % (0.0-7.3) H 08/18/18 08:48 Eos % (Auto) 0.7 % (0.0-4.3) 08/18/18 08:48 Baso % (Auto) 0.9 % (0.0-1.8) 08/18/18 08:48 Lymph # 1.0 K/mm3 (1.2-5.4) L 08/18/18 08:48 [place] # 0.4 K/mm3 (0.0-0.8) 08/18/18 08:48 Eos # 0.0 K/mm3 (0.0-0.4) 08/18/18 08:48 Baso # 0.0 K/mm3 (0.0-0.1) 08/18/18 08:48 Seg Neutrophils % 69.5 % (40.0-70.0) 08/18/18 08:48 Seg Neutrophils # 3.2 K/mm3 (1.8-7.7) 08/18/18 08:48 PT 18.1 Sec. (12.2-14.9) H 08/18/18 14:30 INR 1.44 (0.87-1.13) H 08/18/18 14:30 APTT 41.0 Sec. (24.2-36.6) H 08/18/18 12:24 Sodium 140 mmol/L (137-145) 08/20/18 06:48 Potassium 3.3 mmol/L (3.6-5.0) L 08/20/18 06:48 Chloride 103.3 mmol/L (98-107) 08/20/18 06:48 Carbon Dioxide 23 mmol/L (22-30) 08/20/18 06:48 Anion Gap 17 mmol/L 08/20/18 06:48 BUN 24 mg/dL (9-20) H 08/20/18 06:48 Creatinine 1.7 mg/dL (0.8-1.5) H 08/20/18 06:48 Estimated GFR 51 ml/min 08/20/18 06:48 BUN/Creatinine Ratio 14 % 08/20/18 06:48 Glucose 100 mg/dL (75-100) 08/20/18 06:48 Calcium 8.4 mg/dL (8.4-10.2) 08/20/18 06:48 Magnesium 2.00 mg/dL (1.7-2.3) 08/19/18 09:09 Total Bilirubin 2.90 mg/dL (0.1-1.2) H 08/18/18 08:48 AST 26 units/L (5-40) 08/18/18 08:48 ALT 24 units/L (7-56) 08/18/18 08:48 Alkaline Phosphatase 144 units/L (35-129) H 08/18/18 08:48 Troponin T < 0.010 ng/mL (0.00-0.029) 08/18/18 12:24 NT-Pro-B Natriuret Pep 4780 pg/mL (0-900) H 08/18/18 12:24 Total Protein 7.2 g/dL (6.3-8.2) 08/18/18 08:48 Albumin 3.7 g/dL (3.9-5) L 08/18/18 08:48 Albumin/Globulin Ratio 1.1 % 08/18/18 08:48 Urine Color Jennifer (Yellow) 08/18/18 10:30 Urine Turbidity Clear (Clear) 08/18/18 10:30 Urine pH 5.0 (5.0-7.0) 08/18/18 10:30 Ur Specific [place] 1.016 (1.003-1.030) 08/18/18 10:30 Urine Protein 100 mg/dl mg/dL (Negative) 08/18/18 10:30 Urine Glucose (UA) Neg mg/dL (Negative) 08/18/18 10:30 Urine Ketones Neg mg/dL (Negative) 08/18/18 10:30 Urine Blood Neg (Negative) 08/18/18 10:30 Urine Nitrite Neg (Negative) 08/18/18 10:30 Urine Bilirubin Neg (Negative) 08/18/18 10:30 Urine Urobilinogen 4.0 mg/dL (<2.0) 08/18/18 10:30 Ur Leukocyte Esterase Neg (Negative) 08/18/18 10:30 Urine WBC (Auto) 4.0 /HPF (0.0-6.0) 08/18/18 10:30 Urine RBC (Auto) < 1.0 /HPF (0.0-6.0) 08/18/18 10:30 U Epithel Cells (Auto) < 1.0 /HPF (0-13.0) 08/18/18 10:30 Hyaline Casts 12 /LPF 08/18/18 10:30 Urine Mucus Few /HPF 08/18/18 10:30 Fluid Type Ascitic 08/18/18 12:18 Fluid Color Yellow 08/18/18 12:18 Fluid Appearance Clear 08/18/18 12:18 Fluid WBC 111 /mm3 08/18/18 12:18 Fluid RBC 468 /mm3 08/18/18 12:18 Fluid Seg Neutrophils 16.0 % 08/18/18 12:18 Fluid Lymphocytes 20.0 % 08/18/18 12:18 Fluid Reactive Lymphs Not Reportable 08/18/18 12:18 Fluid Monocytes 64.0 % 08/18/18 12:18 Fluid Eosinophils Not Reportable 08/18/18 12:18 Fluid Basophils Not Reportable 08/18/18 12:18 Hep Bs Antigen Non-reactive (Negative) 08/21/18 09:17 Hep B Core IgM Ab Non-reactive (NonReactive) 08/21/18 09:17 Hepatitis C Antibody Non-reactive (NonReactive) 08/21/18 09:17
[2018-08-21] MEDS: MILRINONE-D5W 20 MG/100 ML 20 MG/100 ML BAG IV SCH (17:12)
[2018-08-21] MEDS ORDERED: CEPHULAC PO ONE (20:49)
[2018-08-22] MEDS: LASIX PO SCH ×2 (06:06→18:56)
[2018-08-22 06:17] LABS: BUN/Creatinine Ratio 14; Blood Urea Nitrogen 17 mg/dL (9-20); Calcium 8.5 mg/dL (8.4-10.2); Hemolysis Index 0
--- NOTE | 2018-08-22 08:40 | Progress Note ---
Assessment and Plan Impression: * Renal insufficiency . Most likely chronic . baseline creatinine seems to be approx 1.5 * Chronic Atrial fibrillation * Ascites * CHF * Hypertension * Hypokalemia Recommendation: * His UA shows 2+ dipstick . Check urine protein: creatinine ratio * F/U results of Renal ultrasound and vasculitis w/u. Hep B and C neagtive * He may have underlying hypertensive nephrosclerosis * Need to consider cardio-renal syndrome as well * Avoid nephrotoxins * Renal function is improving * Monitor fluid status and electrolytes closely * Replace K and check Mg level Subjective Date of service: 08/22/18 Interval history: patient feels better today . SOB is improving . Currently on milrinone drip Objective - Vital Signs Vital signs: Vital Signs - 12hr 08/21/18 08/22/18 08/22/18 23:04 00:20 05:09 Temperature 98.1 F 98.3 F Pulse Rate 99 H 90 Respiratory 18 14 20 Rate Blood Pressure 91/66 91/73 O2 Sat by Pulse 94 95 Oximetry - General Appearance General appearance: well-developed, well-nourished, appears stated age EENT: PERRL, mucous membranes moist Neck: no JVD, no thyromegaly, no carotid bruit, supple Respiratory: Present: Clear to Ascultation Cardiology: regular, normal heart rate Gastrointestinal: normoactive bowel sounds, distended Integumentary: other (1+ edema . Chronic skin changes ) - Lab 08/21/18 07:34 08/22/18 05:32 Most recent lab results Calcium 8.5 mg/dL (8.4-10.2) 08/22/18 05:32 Magnesium 2.00 mg/dL (1.7-2.3) 08/19/18 09:09
[2018-08-22] MEDS ORDERED: K-DUR PO NR (10:00)
[2018-08-22] MEDS: TOPROL XL PO SCH (10:00)
[2018-08-22] MEDS: PROCARDIA XL PO SCH (10:39)
[2018-08-22] MEDS: ZAROXOLYN PO SCH (10:39)
[2018-08-22] MEDS: DIOVAN PO SCH (10:39)
[2018-08-22] MEDS: CATAPRES PO SCH ×2 (10:40→21:30)
[2018-08-22] MEDS: CORDARONE PO SCH (10:40)
[2018-08-22] MEDS: PRADAXA PO SCH ×2 (10:40→21:30)
[2018-08-22] MEDS: K-DUR PO SCH (10:40)
[2018-08-22] MEDS: MILRINONE-D5W 20 MG/100 ML 20 MG/100 ML BAG IV SCH ×2 (10:41→20:00)
[2018-08-22] MEDS: SODIUM CHLORIDE FLUSH SYRINGE 10 ML IV SCH ×2 (10:42→21:31)
--- NOTE | 2018-08-22 12:26 | Progress Note ---
Assessment and Plan Acute on chronic systolic heart failure Ascities s/p paracentesis Severe Nonischemic Cardiomyopathy Cardiac cath 05/2018 shows a severe nonischemic cardiomyopathy with left ventricular ejection fraction 10%. Persistent atrial fibrillation rate controlled and currently treated with amiodarone and toprol XL. on Pradaxa for oral anticoagulation. Hypertension Acute renal failure Recommend: Continue aggressive medical therapy for systolic heart failure including a trial of IV milrinone therapy for an additional 48 hrs. Sodium/Fluid restriction. Daily weight. Subjective Date of service: 08/22/18 Interval history: Patient reports he is diuresing well. His abdomen is soft, less distended. Objective Vital Signs Temp Pulse Resp BP Pulse Ox 08/22/18 12:16 97.9 F 46 L 20 102/55 99 08/22/18 10:40 101 H 116/79 08/22/18 10:39 101 H 116/79 08/22/18 08:10 98.1 F 101 H 20 116/79 94 08/22/18 05:09 98.3 F 90 20 91/73 95 08/22/18 00:20 98.1 F 99 H 14 91/66 94 08/21/18 23:04 18 08/21/18 20:01 98.3 F 76 24 95/67 95 08/21/18 16:02 97.9 F 104 H 20 124/102 100 - Physical Examination General: No Apparent Distress HEENT: Positive: PERRL Cardiac: Positive: irregularly irregular Neuro: Positive: Grossly Intact - Labs and Meds Comprehensive Metabolic Panel 08/22/18 Range/Units 05:32 Sodium 139 (137-145) mmol/L Potassium 2.8 L* (3.6-5.0) mmol/L Chloride 102.4 (98-107) mmol/L Carbon Dioxide 27 (22-30) mmol/L BUN 17 (9-20) mg/dL Creatinine 1.2 (0.8-1.5) mg/dL Glucose 80 (75-100) mg/dL Calcium 8.5 (8.4-10.2) mg/dL
--- NOTE | 2018-08-22 15:07 | Progress Note ---
Assessment and Plan Assessment and plan: Patient is a 53 YO Male with Obesity, HTN, Systolic CHF, Medication Noncompliance, Atrial Fib on Therapeutic Anticoagulation presents to ED for evaluation. Pt states that he has experienced swelling in his abdomen over the past 1 week with worsening symptoms over the same time fram. Pt denies fever, chills, CP, Palpitations, NVD, Trauma, Falls, Productive cough, hemoptysis, or recent ill contacts. Pt seen and evaluated in ED and found to have Ascites as well as CHF. Pt admitted to medical floor. IR consulted in ED for paracentesis. Acute on chronic systolic CHF exacerbation: -On CHF protocol -Echo pending -Consulted cardiology at this time patient was started on Milrinone IV drip which also patient's telemetry for closer monitoring -Hold lasix following BP and worsening renal function - Daily weights DESEAN - possible underlying cardiorenal syndrome - Nephrology eval ongoing Severe nonischemic cardiomyopathy ejection function of 10% -Management as noted above cardiology consult. -Compliance with medication and diet discussed in detail with the patient. Ascites probably secondary to CHF -CT abd/pelvis neg for liver disease -Possible underlying passive hepatic congestion -Status post paracentesis -Fluid analysis appears transudate. -If no improvement with heart failure management may require additional thoracentesis Hypotension -Give a dose of albumin -Monitor closely Chronic A/fib with RVR -Home medications resumed -On chronic oral anticoagulation with Pradaxa -Continue tele monitoring Transaminitis -exact cause unknown -CT abd/pelvis neg for liver disease Hypokalemia -Improving on repletion, will monitor HTN -Stable Disposition: For discharge when medically stable Hospitalist Physical - Constitutional Vitals: Temp Pulse Resp BP Pulse Ox 97.9 F 46 L 20 102/55 99 08/22/18 12:16 08/22/18 12:16 08/22/18 12:16 08/22/18 12:16 08/22/18 12:16 General appearance: Present: no acute distress Results - Labs CBC & Chem 7: 08/21/18 07:34 08/22/18 05:32 Labs: Laboratory Last Values WBC 4.3 K/mm3 (4.5-11.0) L 08/21/18 07:34 RBC 4.22 M/mm3 (3.65-5.03) 08/21/18 07:34 Hgb 11.3 gm/dl (11.8-15.2) L 08/21/18 07:34 Hct 35.5 % (35.5-45.6) 08/21/18 07:34 MCV 84 fl (84-94) 08/21/18 07:34 MCH 27 pg (28-32) L 08/21/18 07:34 MCHC 32 % (32-34) 08/21/18 07:34 RDW 19.4 % (13.2-15.2) H 08/21/18 07:34 Plt Count 212 K/mm3 (140-440) 08/21/18 07:34 Lymph % (Auto) 20.7 % (13.4-35.0) 08/18/18 08:48 [place] % (Auto) 8.2 % (0.0-7.3) H 08/18/18 08:48 Eos % (Auto) 0.7 % (0.0-4.3) 08/18/18 08:48 Baso % (Auto) 0.9 % (0.0-1.8) 08/18/18 08:48 Lymph # 1.0 K/mm3 (1.2-5.4) L 08/18/18 08:48 [place] # 0.4 K/mm3 (0.0-0.8) 08/18/18 08:48 Eos # 0.0 K/mm3 (0.0-0.4) 08/18/18 08:48 Baso # 0.0 K/mm3 (0.0-0.1) 08/18/18 08:48 Seg Neutrophils % 69.5 % (40.0-70.0) 08/18/18 08:48 Seg Neutrophils # 3.2 K/mm3 (1.8-7.7) 08/18/18 08:48 PT 18.1 Sec. (12.2-14.9) H 08/18/18 14:30 INR 1.44 (0.87-1.13) H 08/18/18 14:30 APTT 41.0 Sec. (24.2-36.6) H 08/18/18 12:24 Sodium 139 mmol/L (137-145) 08/22/18 05:32 Potassium 2.8 mmol/L (3.6-5.0) L* 08/22/18 05:32 Chloride 102.4 mmol/L (98-107) 08/22/18 05:32 Carbon Dioxide 27 mmol/L (22-30) 08/22/18 05:32 Anion Gap 12 mmol/L 08/22/18 05:32 BUN 17 mg/dL (9-20) 08/22/18 05:32 Creatinine 1.2 mg/dL (0.8-1.5) 08/22/18 05:32 Estimated GFR > 60 ml/min 08/22/18 05:32 BUN/Creatinine Ratio 14 % 08/22/18 05:32 Glucose 80 mg/dL (75-100) 08/22/18 05:32 Calcium 8.5 mg/dL (8.4-10.2) 08/22/18 05:32 Magnesium 2.00 mg/dL (1.7-2.3) 08/19/18 09:09 Total Bilirubin 2.90 mg/dL (0.1-1.2) H 08/18/18 08:48 AST 26 units/L (5-40) 08/18/18 08:48 ALT 24 units/L (7-56) 08/18/18 08:48 Alkaline Phosphatase 144 units/L (35-129) H 08/18/18 08:48 Troponin T < 0.010 ng/mL (0.00-0.029) 08/18/18 12:24 NT-Pro-B Natriuret Pep 4780 pg/mL (0-900) H 08/18/18 12:24 Total Protein 7.2 g/dL (6.3-8.2) 08/18/18 08:48 Albumin 3.7 g/dL (3.9-5) L 08/18/18 08:48 Albumin/Globulin Ratio 1.1 % 08/18/18 08:48 Urine Color [place] (Yellow) 08/18/18 10:30 Urine Turbidity Clear (Clear) 08/18/18 10:30 Urine pH 5.0 (5.0-7.0) 08/18/18 10:30 Ur Specific [place] 1.016 (1.003-1.030) 08/18/18 10:30 Urine Protein 100 mg/dl mg/dL (Negative) 08/18/18 10:30 Urine Glucose (UA) Neg mg/dL (Negative) 08/18/18 10:30 Urine Ketones Neg mg/dL (Negative) 08/18/18 10:30 Urine Blood Neg (Negative) 08/18/18 10:30 Urine Nitrite Neg (Negative) 08/18/18 10:30 Urine Bilirubin Neg (Negative) 08/18/18 10:30 Urine Urobilinogen 4.0 mg/dL (<2.0) 08/18/18 10:30 Ur Leukocyte Esterase Neg (Negative) 08/18/18 10:30 Urine WBC (Auto) 4.0 /HPF (0.0-6.0) 08/18/18 10:30 Urine RBC (Auto) < 1.0 /HPF (0.0-6.0) 08/18/18 10:30 U Epithel Cells (Auto) < 1.0 /HPF (0-13.0) 08/18/18 10:30 Hyaline Casts 12 /LPF 08/18/18 10:30 Urine Mucus Few /HPF 08/18/18 10:30 Fluid Type Ascitic 08/18/18 12:18 Fluid Color Yellow 08/18/18 12:18 Fluid Appearance Clear 08/18/18 12:18 Fluid WBC 111 /mm3 08/18/18 12:18 Fluid RBC 468 /mm3 08/18/18 12:18 Fluid Seg Neutrophils 16.0 % 08/18/18 12:18 Fluid Lymphocytes 20.0 % 08/18/18 12:18 Fluid Reactive Lymphs Not Reportable 08/18/18 12:18 Fluid Monocytes 64.0 % 08/18/18 12:18 Fluid Eosinophils Not Reportable 08/18/18 12:18 Fluid Basophils Not Reportable 08/18/18 12:18 Hep Bs Antigen Non-reactive (Negative) 08/21/18 09:17 Hep B Core IgM Ab Non-reactive (NonReactive) 08/21/18 09:17 Hepatitis C Antibody Non-reactive (NonReactive) 08/21/18 09:17
--- NOTE | 2018-08-22 15:38 | Progress Note ---
Assessment and Plan Assessment and plan: Patient is a 53 yo man with Obesity, HTN, Systolic CHF, Medication Noncompliance , Atrial Fib on Therapeutic Anticoagulation presents to ED for constipation and abdominal swelling. In ED he was found to have Ascites as well as CHF. Acute on chronic HFrEF -On CHF protocol -Echo pending -Consulted cardiology at this time patient was started on milrinone drip which also patient's telemetry for closer monitoring -Hold lasix following BP and worsening renal function - Daily weights DESEAN, vasomotor with ATN - possible underlying cardiorenal syndrome - Nephrology eval ongoing Severe nonischemic cardiomyopathy ejection function of 10% -Management as noted above cardiology consult. -Compliance with medication and diet discussed in detail with the patient. Ascites probably secondary to CHF -CT abd/pelvis neg for liver disease -Possible underlying passive hepatic congestion -Status post paracentesis -Fluid analysis appears transudate. -If no improvement with heart failure management may require additional thoracentesis Hypotension -Cardiology to be called, ?stop milrinone Chronic A/fib with RVR -Home medications resumed -On chronic oral anticoagulation with Pradaxa -Continue tele monitoring Transaminitis -exact cause unknown, most likely related to CHF -CT abd/pelvis neg for liver disease Hypokalemia -Improving on repletion, will monitor HTN -Stable Disposition: For discharge when medically stable History Interval history: Patient was seen and examined. Follow-up on current diagnosis on sob which has improved. Overnight uneventful. Patient denies any chest pain, nausea/vomiting or severe headaches. Imaging, nursing note, chart, labs and old chart reviewed. Discussed with patient. Hospitalist Physical - Physical exam Narrative exam: GEN: WDWN, NAD, Awake, Alert, Orientated x 3 HEENT: NCAT, EOMI, PERRL, OP Clear NECK: supple, no adenopathy, no thyromegaly, + JVD CVS/HEART: RRR, normal S1S2, pulses present bilaterally CHEST/LUNGS: bilateral crackles, Symmetrical chest expansion, good air entry bilaterally GI/Abdomen: soft, distended, good bowel sounds, no guarding or rebound /Bladder: no suprapubic tenderness, no CVA or paraspinal tenderness EXT/Skin: +ble edema, no obvious rash MSK: FROM x 4 Neuro: CN 2-12 grossly intact, no new focal deficits Psych: calm - Constitutional Vitals: Temp Pulse Resp BP Pulse Ox 97.9 F 46 L 20 102/55 99 08/22/18 12:16 08/22/18 12:16 08/22/18 12:16 08/22/18 12:16 08/22/18 12:16 General appearance: Present: no acute distress Results - Labs CBC & Chem 7: 08/21/18 07:34 10 04:42 Labs: Laboratory Last Values WBC 4.3 K/mm3 (4.5-11.0) L 08/21/18 07:34 RBC 4.22 M/mm3 (3.65-5.03) 08/21/18 07:34 Hgb 11.3 gm/dl (11.8-15.2) L 08/21/18 07:34 Hct 35.5 % (35.5-45.6) 08/21/18 07:34 MCV 84 fl (84-94) 08/21/18 07:34 MCH 27 pg (28-32) L 08/21/18 07:34 MCHC 32 % (32-34) 08/21/18 07:34 RDW 19.4 % (13.2-15.2) H 08/21/18 07:34 Plt Count 212 K/mm3 (140-440) 08/21/18 07:34 Lymph % (Auto) 20.7 % (13.4-35.0) 08/18/18 08:48 [place] % (Auto) 8.2 % (0.0-7.3) H 08/18/18 08:48 Eos % (Auto) 0.7 % (0.0-4.3) 08/18/18 08:48 Baso % (Auto) 0.9 % (0.0-1.8) 08/18/18 08:48 Lymph # 1.0 K/mm3 (1.2-5.4) L 08/18/18 08:48 [place] # 0.4 K/mm3 (0.0-0.8) 08/18/18 08:48 Eos # 0.0 K/mm3 (0.0-0.4) 08/18/18 08:48 Baso # 0.0 K/mm3 (0.0-0.1) 08/18/18 08:48 Seg Neutrophils % 69.5 % (40.0-70.0) 08/18/18 08:48 Seg Neutrophils # 3.2 K/mm3 (1.8-7.7) 08/18/18 08:48 PT 18.1 Sec. (12.2-14.9) H 08/18/18 14:30 INR 1.44 (0.87-1.13) H 08/18/18 14:30 APTT 41.0 Sec. (24.2-36.6) H 08/18/18 12:24 Sodium 139 mmol/L (137-145) 08/22/18 05:32 Potassium 2.8 mmol/L (3.6-5.0) L* 08/22/18 05:32 Chloride 102.4 mmol/L (98-107) 08/22/18 05:32 Carbon Dioxide 27 mmol/L (22-30) 08/22/18 05:32 Anion Gap 12 mmol/L 08/22/18 05:32 BUN 17 mg/dL (9-20) 08/22/18 05:32 Creatinine 1.2 mg/dL (0.8-1.5) 08/22/18 05:32 Estimated GFR > 60 ml/min 08/22/18 05:32 BUN/Creatinine Ratio 14 % 08/22/18 05:32 Glucose 80 mg/dL (75-100) 08/22/18 05:32 Calcium 8.5 mg/dL (8.4-10.2) 08/22/18 05:32 Magnesium 2.00 mg/dL (1.7-2.3) 08/19/18 09:09 Total Bilirubin 2.90 mg/dL (0.1-1.2) H 08/18/18 08:48 AST 26 units/L (5-40) 08/18/18 08:48 ALT 24 units/L (7-56) 08/18/18 08:48 Alkaline Phosphatase 144 units/L (35-129) H 08/18/18 08:48 Troponin T < 0.010 ng/mL (0.00-0.029) 08/18/18 12:24 NT-Pro-B Natriuret Pep 4780 pg/mL (0-900) H 08/18/18 12:24 Total Protein 7.2 g/dL (6.3-8.2) 08/18/18 08:48 Albumin 3.7 g/dL (3.9-5) L 08/18/18 08:48 Albumin/Globulin Ratio 1.1 % 08/18/18 08:48 Urine Color Jennifer (Yellow) 08/18/18 10:30 Urine Turbidity Clear (Clear) 08/18/18 10:30 Urine pH 5.0 (5.0-7.0) 08/18/18 10:30 Ur Specific [place] 1.016 (1.003-1.030) 08/18/18 10:30 Urine Protein 100 mg/dl mg/dL (Negative) 08/18/18 10:30 Urine Glucose (UA) Neg mg/dL (Negative) 08/18/18 10:30 Urine Ketones Neg mg/dL (Negative) 08/18/18 10:30 Urine Blood Neg (Negative) 08/18/18 10:30 Urine Nitrite Neg (Negative) 08/18/18 10:30 Urine Bilirubin Neg (Negative) 08/18/18 10:30 Urine Urobilinogen 4.0 mg/dL (<2.0) 08/18/18 10:30 Ur Leukocyte Esterase Neg (Negative) 08/18/18 10:30 Urine WBC (Auto) 4.0 /HPF (0.0-6.0) 08/18/18 10:30 Urine RBC (Auto) < 1.0 /HPF (0.0-6.0) 08/18/18 10:30 U Epithel Cells (Auto) < 1.0 /HPF (0-13.0) 08/18/18 10:30 Hyaline Casts 12 /LPF 08/18/18 10:30 Urine Mucus Few /HPF 08/18/18 10:30 Fluid Type Ascitic 08/18/18 12:18 Fluid Color Yellow 08/18/18 12:18 Fluid Appearance Clear 08/18/18 12:18 Fluid WBC 111 /mm3 08/18/18 12:18 Fluid RBC 468 /mm3 08/18/18 12:18 Fluid Seg Neutrophils 16.0 % 08/18/18 12:18 Fluid Lymphocytes 20.0 % 08/18/18 12:18 Fluid Reactive Lymphs Not Reportable 08/18/18 12:18 Fluid Monocytes 64.0 % 08/18/18 12:18 Fluid Eosinophils Not Reportable 08/18/18 12:18 Fluid Basophils Not Reportable 08/18/18 12:18 Hep Bs Antigen Non-reactive (Negative) 08/21/18 09:17 Hep B Core IgM Ab Non-reactive (NonReactive) 08/21/18 09:17 Hepatitis C Antibody Non-reactive (NonReactive) 08/21/18 09:17
[2018-08-22] MEDS ORDERED: NACL 0.9% 1000 ML 0 ML ONE (18:56)
[2018-08-22] MEDS: KCL 10MEQ/100ML 10 MEQ/100 ML BAG IV SCH ×2 (18:57→22:46)
[2018-08-22 22:35] LABS: Protein/Creatinine Ratio,Urine 0.13
[2018-08-23 05:55] LABS: Calcium 8.4 mg/dL (8.4-10.2)
[2018-08-23] MEDS: LASIX PO SCH (06:17)
--- NOTE | 2018-08-23 09:26 | Progress Note ---
Assessment and Plan Assessment and plan: Patient is a 53 yo man with Obesity, HTN, Systolic CHF, Medication Noncompliance , Atrial Fib on Therapeutic Anticoagulation presents to ED for constipation and abdominal swelling. In ED he was found to have Ascites as well as CHF. Acute on chronic HFrEF -On CHF protocol DESEAN, vasomotor with ATN - possible underlying cardiorenal syndrome - Nephrology eval ongoing Severe nonischemic cardiomyopathy ejection function of 10% -Management as noted above cardiology consult. -Compliance with medication and diet discussed in detail with the patient. Ascites probably secondary to CHF -CT abd/pelvis neg for liver disease -Possible underlying passive hepatic congestion -Status post paracentesis -Fluid analysis appears transudate. -If no improvement with heart failure management may require additional thoracentesis Hypotension -Cardiology to be called, stop clonidine Chronic A/fib with RVR -Home medications resumed -On chronic oral anticoagulation with Pradaxa -Continue tele monitoring Transaminitis -exact cause unknown, most likely related to CHF -CT abd/pelvis neg for liver disease Hypokalemia -replete, recheck in am HTN -Stable Disposition: For discharge when medically stable History Interval history: Patient was seen and examined. Follow-up on current diagnosis on sob which has improved, constipation resolved. Overnight eventful with hypotension, Milrinone stopped. Patient denies any chest pain, nausea/vomiting or severe headaches. Imaging, nursing note, chart, labs and old chart reviewed. Discussed with patient. Hospitalist Physical - Physical exam Narrative exam: GEN: WDWN, NAD, Awake, Alert, Orientated x 3 HEENT: NCAT, EOMI, PERRL, OP Clear NECK: supple, no adenopathy, no thyromegaly, no JVD CVS/HEART: RRR, normal S1S2, pulses present bilaterally CHEST/LUNGS: bilateral crackles, Symmetrical chest expansion, good air entry bilaterally GI/Abdomen: soft, distended, good bowel sounds, no guarding or rebound /Bladder: no suprapubic tenderness, no CVA or paraspinal tenderness EXT/Skin: ble edema resolved, no obvious rash MSK: FROM x 4 Neuro: CN 2-12 grossly intact, no new focal deficits Psych: calm - Constitutional Vitals: Temp Pulse Resp BP Pulse Ox 98.8 F 78 14 101/63 100 08/23/18 08:23 08/23/18 08:23 08/23/18 08:23 08/23/18 08:23 08/23/18 08:23 General appearance: Present: no acute distress Results - Labs CBC & Chem 7: 08/21/18 07:34 08/23/18 04:42 Labs: Laboratory Last Values WBC 4.3 K/mm3 (4.5-11.0) L 08/21/18 07:34 RBC 4.22 M/mm3 (3.65-5.03) 08/21/18 07:34 Hgb 11.3 gm/dl (11.8-15.2) L 08/21/18 07:34 Hct 35.5 % (35.5-45.6) 08/21/18 07:34 MCV 84 fl (84-94) 08/21/18 07:34 MCH 27 pg (28-32) L 08/21/18 07:34 MCHC 32 % (32-34) 08/21/18 07:34 RDW 19.4 % (13.2-15.2) H 08/21/18 07:34 Plt Count 212 K/mm3 (140-440) 08/21/18 07:34 Lymph % (Auto) 20.7 % (13.4-35.0) 08/18/18 08:48 [place] % (Auto) 8.2 % (0.0-7.3) H 08/18/18 08:48 Eos % (Auto) 0.7 % (0.0-4.3) 08/18/18 08:48 Baso % (Auto) 0.9 % (0.0-1.8) 08/18/18 08:48 Lymph # 1.0 K/mm3 (1.2-5.4) L 08/18/18 08:48 [place] # 0.4 K/mm3 (0.0-0.8) 08/18/18 08:48 Eos # 0.0 K/mm3 (0.0-0.4) 08/18/18 08:48 Baso # 0.0 K/mm3 (0.0-0.1) 08/18/18 08:48 Seg Neutrophils % 69.5 % (40.0-70.0) 08/18/18 08:48 Seg Neutrophils # 3.2 K/mm3 (1.8-7.7) 08/18/18 08:48 PT 18.1 Sec. (12.2-14.9) H 08/18/18 14:30 INR 1.44 (0.87-1.13) H 08/18/18 14:30 APTT 41.0 Sec. (24.2-36.6) H 08/18/18 12:24 Sodium 142 mmol/L (137-145) 08/23/18 04:42 Potassium 3.0 mmol/L (3.6-5.0) L 08/23/18 04:42 Chloride 103.0 mmol/L (98-107) 08/23/18 04:42 Carbon Dioxide 26 mmol/L (22-30) 08/23/18 04:42 Anion Gap 16 mmol/L 08/23/18 04:42 BUN 20 mg/dL (9-20) 08/23/18 04:42 Creatinine 1.9 mg/dL (0.8-1.5) H D 08/23/18 04:42 Estimated GFR 45 ml/min 08/23/18 04:42 BUN/Creatinine Ratio 11 % 08/23/18 04:42 Glucose 86 mg/dL (75-100) 08/23/18 04:42 Calcium 8.4 mg/dL (8.4-10.2) 08/23/18 04:42 Magnesium 2.00 mg/dL (1.7-2.3) 08/19/18 09:09 Total Bilirubin 2.90 mg/dL (0.1-1.2) H 08/18/18 08:48 AST 26 units/L (5-40) 08/18/18 08:48 ALT 24 units/L (7-56) 08/18/18 08:48 Alkaline Phosphatase 144 units/L (35-129) H 08/18/18 08:48 Troponin T < 0.010 ng/mL (0.00-0.029) 08/18/18 12:24 NT-Pro-B Natriuret Pep 4780 pg/mL (0-900) H 08/18/18 12:24 Total Protein 7.2 g/dL (6.3-8.2) 08/18/18 08:48 Albumin 3.7 g/dL (3.9-5) L 08/18/18 08:48 Albumin/Globulin Ratio 1.1 % 08/18/18 08:48 Urine Color [place] (Yellow) 08/18/18 10:30 Urine Turbidity Clear (Clear) 08/18/18 10:30 Urine pH 5.0 (5.0-7.0) 08/18/18 10:30 Ur Specific [place] 1.016 (1.003-1.030) 08/18/18 10:30 Urine Protein 100 mg/dl mg/dL (Negative) 08/18/18 10:30 Urine Glucose (UA) Neg mg/dL (Negative) 08/18/18 10:30 Urine Ketones Neg mg/dL (Negative) 08/18/18 10:30 Urine Blood Neg (Negative) 08/18/18 10:30 Urine Nitrite Neg (Negative) 08/18/18 10:30 Urine Bilirubin Neg (Negative) 08/18/18 10:30 Urine Urobilinogen 4.0 mg/dL (<2.0) 08/18/18 10:30 Ur Leukocyte Esterase Neg (Negative) 08/18/18 10:30 Urine WBC (Auto) 4.0 /HPF (0.0-6.0) 08/18/18 10:30 Urine RBC (Auto) < 1.0 /HPF (0.0-6.0) 08/18/18 10:30 U Epithel Cells (Auto) < 1.0 /HPF (0-13.0) 08/18/18 10:30 Hyaline Casts 12 /LPF 08/18/18 10:30 Urine Mucus Few /HPF 08/18/18 10:30 Urine Eosinophils None seen (None Seen) 08/21/18 22:01 Urine Creatinine 141.0 mg/dL (0.1-20.0) H 08/22/18 22:01 Protein/Creatinin Ratio 0.13 08/22/18 22:01 Urine Total Protein 19 mg/dL (5-11.8) H 08/22/18 22:01 Fluid Type Ascitic 08/18/18 12:18 Fluid Color Yellow 08/18/18 12:18 Fluid Appearance Clear 08/18/18 12:18 Fluid WBC 111 /mm3 08/18/18 12:18 Fluid RBC 468 /mm3 08/18/18 12:18 Fluid Seg Neutrophils 16.0 % 08/18/18 12:18 Fluid Lymphocytes 20.0 % 08/18/18 12:18 Fluid Reactive Lymphs Not Reportable 08/18/18 12:18 Fluid Monocytes 64.0 % 08/18/18 12:18 Fluid Eosinophils Not Reportable 08/18/18 12:18 Fluid Basophils Not Reportable 08/18/18 12:18 Complement C3 120 mg/dL (82-185) 08/21/18 09:17 Complement C4 23 mg/dL (15-53) 08/21/18 09:17 Hep Bs Antigen Non-reactive (Negative) 08/21/18 09:17 Hep B Core IgM Ab Non-reactive (NonReactive) 08/21/18 09:17 Hepatitis C Antibody Non-reactive (NonReactive) 08/21/18 09:17
[2018-08-23] MEDS ORDERED: K-DUR PO NR (09:30)
--- NOTE | 2018-08-23 09:47 | Progress Note ---
Assessment and Plan Acute on chronic systolic heart failure Ascities s/p paracentesis Severe Nonischemic Cardiomyopathy Cardiac cath 05/2018 shows a severe nonischemic cardiomyopathy with left ventricular ejection fraction 10%. Persistent atrial fibrillation rate controlled and currently treated with amiodarone and toprol XL. on Pradaxa for oral anticoagulation. Hypertension Acute renal failure Hypokalemia Recommend: Continue medical therapy for systolic heart failure. Sodium/Fluid restriction. Daily weight. Subjective Date of service: 08/23/18 Interval history: IV milrinone has been held secondary to low blood pressure. Objective Vital Signs Temp Pulse Resp BP BP Pulse Ox 08/23/18 08:23 98.8 F 78 14 101/63 100 08/23/18 05:41 98.6 F 84 18 81/51 95 08/23/18 05:15 85 148/83 97 08/23/18 00:23 98.6 F 94 H 18 71/45 97 08/22/18 20:01 98.2 F 63 20 89/56 94 08/22/18 19:36 94 H 89/50 97 08/22/18 15:44 98.1 F 62 20 94/54 98 08/22/18 12:16 97.9 F 46 L 20 102/55 99 08/22/18 10:40 101 H 116/79 08/22/18 10:39 101 H 116/79 - Physical Examination General: No Apparent Distress HEENT: Positive: PERRL Neck: Positive: trachea midline Cardiac: Positive: irregularly irregular Lungs: Positive: Decreased Breath Sounds Neuro: Positive: Grossly Intact Abdomen: Positive: Soft Extremities: Present: +1 Edema - Labs and Meds Comprehensive Metabolic Panel 08/23/18 Range/Units 04:42 Sodium 142 (137-145) mmol/L Potassium 3.0 L (3.6-5.0) mmol/L Chloride 103.0 (98-107) mmol/L Carbon Dioxide 26 (22-30) mmol/L BUN 20 (9-20) mg/dL Creatinine 1.9 H D (0.8-1.5) mg/dL Glucose 86 (75-100) mg/dL Calcium 8.4 (8.4-10.2) mg/dL
[2018-08-23] MEDS: TOPROL XL PO SCH (10:52)
[2018-08-23] MEDS: DIOVAN PO SCH (10:53)
[2018-08-23] MEDS: PROCARDIA XL PO SCH (10:53)
[2018-08-23] MEDS: K-DUR PO SCH (10:53)
[2018-08-23] MEDS: PRADAXA PO SCH ×2 (10:53→22:30)
[2018-08-23] MEDS: SODIUM CHLORIDE FLUSH SYRINGE 10 ML IV SCH ×2 (10:54→22:30)
[2018-08-23] MEDS: CORDARONE PO SCH (10:54)
--- NOTE | 2018-08-23 10:59 | Progress Note ---
Assessment and Plan Impression: * Renal insufficiency . Most likely chronic . baseline creatinine seems to be approx 1.5 * Chronic Atrial fibrillation * Ascites * CHF * Hypertension * Hypokalemia Recommendation: * normal protein: creatinine ratio * He may have underlying hypertensive nephrosclerosis * likely cardio-renal syndrome as well * Avoid nephrotoxins * Renal function is worse today, hold lasix and arb, follow up am lytes * Monitor fluid status and electrolytes closely * Replace K and check Mg level Subjective Date of service: 08/23/18 Principal diagnosis: ana Interval history: resting in bed today Objective - Exam Narrative Exam: General appearance: well-developed, well-nourished, appears stated age EENT: PERRL, mucous membranes moist Neck: no JVD, no thyromegaly, no carotid bruit, supple Respiratory: Present: Clear to Ascultation Cardiology: regular, normal heart rate Gastrointestinal: normoactive bowel sounds, distended Integumentary: other (1+ edema . Chronic skin changes ) - Vital Signs Vital signs: Vital Signs - 12hr 08/23/18 08/23/18 08/23/18 00:23 05:15 05:41 Temperature 98.6 F 98.6 F Pulse Rate 94 H 85 84 Respiratory 18 18 Rate Blood Pressure 148/83 Blood Pressure 71/45 81/51 [Left] O2 Sat by Pulse 97 97 95 Oximetry 08/23/18 08/23/18 08/23/18 08:23 10:52 10:53 Temperature 98.8 F Pulse Rate 78 78 78 Respiratory 14 Rate Blood Pressure 101/63 101/63 101/63 Blood Pressure [Left] O2 Sat by Pulse 100 Oximetry - Lab 08/21/18 07:34 08/23/18 04:42 Most recent lab results Calcium 8.4 mg/dL (8.4-10.2) 08/23/18 04:42 Magnesium 2.00 mg/dL (1.7-2.3) 08/19/18 09:09 Urine Creatinine 141.0 mg/dL (0.1-20.0) H 08/22/18 22:01 Urine Total Protein 19 mg/dL (5-11.8) H 08/22/18 22:01
[2018-08-23 12:02] LABS: Hepatitis A Antibody IgM NonReactive (NonReactive)
[2018-08-23 21:15] LABS: Myeloperoxidase Antibody <1.0 AI (<1.0)
[2018-08-24 05:53] LABS: Calcium 8.1 mg/dL (8.4-10.2)
[2018-08-24] MEDS: TOPROL XL PO SCH (10:52)
[2018-08-24] MEDS: K-DUR PO SCH (10:54)
[2018-08-24] MEDS: CORDARONE PO SCH (10:54)
[2018-08-24] MEDS: PROCARDIA XL PO SCH (10:55)
[2018-08-24] MEDS: PRADAXA PO SCH (10:55)
[2018-08-24] MEDS: SODIUM CHLORIDE FLUSH SYRINGE 10 ML IV SCH (10:56)
--- NOTE | 2018-08-24 10:57 | Progress Note ---
Assessment and Plan Acute on chronic systolic heart failure s/t to noncompliance Ascities s/p paracentesis Severe Nonischemic Cardiomyopathy Cardiac cath 05/2018 shows a severe nonischemic cardiomyopathy with left ventricular ejection fraction 10%. Persistent atrial fibrillation rate controlled and currently treated with amiodarone and toprol XL. on Pradaxa for oral anticoagulation. Hypertension Acute renal failure Hypokalemia Recommend: Replete potassium. Continue medical therapy for systolic heart failure. Sodium/Fluid restriction. Daily weight. Stable, cardiac clark for discharge home today. Patient advised to f/u with [facility] within 1 wk of discharge. Subjective Date of service: 08/24/18 Principal diagnosis: ana Interval history: Patient reports he is feeling better. Wants to go home. Objective Vital Signs Temp Pulse Resp BP BP Pulse Ox 08/24/18 08:00 98.0 F 97 H 16 97/65 100 08/24/18 05:11 97.9 F 68 20 95/63 97 08/23/18 23:56 98.2 F 87 20 99/77 98 08/23/18 20:43 98.2 F 74 20 96/65 94 08/23/18 16:18 98.2 F 75 16 104/65 100 08/23/18 11:39 97.5 F L 65 16 93/65 100 - Physical Examination General: No Apparent Distress HEENT: Positive: PERRL Neck: Positive: trachea midline Cardiac: Positive: irregularly irregular Lungs: Positive: Decreased Breath Sounds Neuro: Positive: Grossly Intact Extremities: Absent: edema - Labs and Meds Comprehensive Metabolic Panel 08/24/18 Range/Units 05:04 Sodium 139 (137-145) mmol/L Potassium 3.2 L (3.6-5.0) mmol/L Chloride 100.8 (98-107) mmol/L Carbon Dioxide 23 (22-30) mmol/L BUN 19 (9-20) mg/dL Creatinine 1.5 (0.8-1.5) mg/dL Glucose 86 (75-100) mg/dL Calcium 8.1 L (8.4-10.2) mg/dL
--- NOTE | 2018-08-24 11:33 | Discharge Summary ---
Providers - Providers Date of Admission: 08/18/18 14:13 Date of discharge: 08/24/18 Attending physician: KIMMIE GAMBINO 08/18/18 14:13 Consult to Interventional Radiology [CONS] Routine Consulting Provider: MAI PEREZ Reason For Exam: therapeutic paracentesis Place consult to:: dr. perez Notified:: answering service Phone number called:: Was contact made?: Yes If yes, spoke with:: robyn Time called:: 08:45 08/20/18 13:17 Consult to Physician [CONS] Routine Comment: Consulting Provider: COLTON MAE Physician Instructions: Reason For Exam: ana 08/21/18 07:26 Consult to Physician [CONS] Routine Comment: Consulting Provider: RADHA YANEZ Physician Instructions: Reason For Exam: chf Primary care physician: CLINICAL NURSE SPECIALIST Hospitalization Condition: Stable Hospital course: Patient is a 53 yo man with Obesity, HTN, Systolic CHF, Medication Noncompliance , Atrial Fib on Therapeutic Anticoagulation presents to ED for constipation and abdominal swelling. In ED he was found to have Ascites as well as CHF. Acute on chronic HFrEF -On CHF protocol ANA, vasomotor with ATN - with suspected underlying cardiorenal syndrome - Nephrology eval ongoing - Cr at 1.5, will discharge Severe nonischemic cardiomyopathy ejection function of 10% -Management as noted above cardiology consult. -Compliance with medication and diet discussed in detail with the patient. Ascites probably secondary to CHF -CT abd/pelvis neg for liver disease -Possible underlying passive hepatic congestion -Status post paracentesis -Fluid analysis appears transudate. -If no improvement with heart failure management may require additional thoracentesis Hypotension -Cardiology to be called, stop clonidine Chronic A/fib with RVR -Home medications resumed -On chronic oral anticoagulation with Pradaxa -Continue tele monitoring Transaminitis -exact cause unknown, most likely related to CHF -CT abd/pelvis neg for liver disease Hypokalemia -replete HTN -Stable Counselled on compliance, he promises to do better with follow up and taking his medications. Disposition: TO HOME OR SELFCARE Time spent for discharge: 36 minutes Core Measure Documentation - Palliative Care Palliative Care/ Comfort Measures: Not Applicable - Core Measures Any of the following diagnoses?: heart failure - VTE Discharge Requirements Deep Vein Thrombosis/Pulmonary Embolism Present on Admission: No Has pt received <5 days of overlap therapy or INR<2.0: No Anticoagulant overlap therapy prescribed at discharge: No Contraindication No Overlap Therapy order at DC: Not Indicated - Heart Failure Discharge Requirements TEOFILO/ARB for LVSD if EF <40%: No Reason for no TEOFILO/ARB: Renal impairment Beta angelina at discharge: Yes Exam - Physical Exam Narrative exam: GEN: WDWN, NAD, Awake, Alert, Orientated x 3 HEENT: NCAT, EOMI, PERRL, OP Clear NECK: supple, no adenopathy, no thyromegaly, no JVD CVS/HEART: RRR, normal S1S2, pulses present bilaterally CHEST/LUNGS: bilateral crackles, Symmetrical chest expansion, good air entry bilaterally GI/Abdomen: soft, distended, good bowel sounds, no guarding or rebound /Bladder: no suprapubic tenderness, no CVA or paraspinal tenderness EXT/Skin: ble edema resolved, no obvious rash MSK: FROM x 4 Neuro: CN 2-12 grossly intact, no new focal deficits Psych: calm - Constitutional Vitals: Temp Pulse Resp BP Pulse Ox 98.0 F 97 H 16 97/65 100 08/24/18 08:00 08/24/18 08:00 08/24/18 08:00 08/24/18 08:00 08/24/18 08:00 Plan Activity: other (no strenous activities) Diet: low salt Follow up with: PRIMARY CAREMD [Primary Care Provider] - 3-5 Days RADHA YANEZ MD [Staff Physician] - 7 Days COLTON MAE MD [Staff Physician] - 10 Days NELI CURTIS [Staff Physician] - 7 Days Prescriptions: AtorvaSTATin [Lipitor] 40 mg PO QHS #30 tablet Amiodarone [Cordarone 200 MG TAB] 200 mg PO QDAY #30 tablet Dabigatran [Pradaxa] 150 mg PO BID #60 capsule Metoprolol Xl [Metoprolol SUCCINATE ER TAB] 25 mg PO QDAY #30 tablet NIFEdipine XL [Procardia Xl] 90 mg PO QDAY #30 tablet Potassium Chloride [K-Dur] 20 meq PO BID #60 tablet
[2018-08-24 12:14] LABS: ANA Screen, IFA Negative (Negative)
[2018-08-24] MEDS ORDERED: K-DUR PO ONE (12:27)
--- NOTE | 2018-08-24 13:23 | Progress Note ---
Assessment and Plan Impression: * Renal insufficiency . Most likely chronic . baseline creatinine seems to be approx 1.5 * Chronic Atrial fibrillation * Ascites * CHF * Hypertension * Hypokalemia Recommendation: * normal protein: creatinine ratio * He may have underlying hypertensive nephrosclerosis * likely cardio-renal syndrome as well * Avoid nephrotoxins * Renal function is better today, hold lasix and arb * Monitor fluid status and electrolytes closely * Replace K and check Mg level * ok to dc home, do not give arb at discharge * follow up in office one week Subjective Date of service: 08/24/18 Principal diagnosis: ana Interval history: resting in bed today Objective - Exam Narrative Exam: General appearance: well-developed, well-nourished, appears stated age EENT: PERRL, mucous membranes moist Neck: no JVD, no thyromegaly, no carotid bruit, supple Respiratory: Present: Clear to Ascultation Cardiology: regular, normal heart rate Gastrointestinal: normoactive bowel sounds, distended Integumentary: other (1+ edema . Chronic skin changes ) - Vital Signs Vital signs: Vital Signs - 12hr 08/24/18 08/24/18 05:11 08:00 Temperature 97.9 F 98.0 F Pulse Rate 68 97 H Respiratory 20 16 Rate Blood Pressure 95/63 Blood Pressure 97/65 [Left] O2 Sat by Pulse 97 100 Oximetry - Lab 08/21/18 07:34 08/24/18 05:04 Most recent lab results Calcium 8.1 mg/dL (8.4-10.2) L 08/24/18 05:04 Magnesium 2.00 mg/dL (1.7-2.3) 08/19/18 09:09 Urine Creatinine 141.0 mg/dL (0.1-20.0) H 08/22/18 22:01 Urine Total Protein 19 mg/dL (5-11.8) H 08/22/18 22:01
[2018-08-24 13:46] VITALS: BP 116/81
== END 2018-08-24 14:00 | disposition home or self-care (01) | DRG 291 ==
LOC: ED 08:20 → 3A 14:13 → 4A 08-21 13:54
PROVIDERS: ADMIT Internal Medicine; ATTEND Internal Medicine
PROC: 0W9G3ZZ Drainage of Peritoneal Cavity, Percutaneous Approach (ICD-10-PCS; principal; 2018-08-18)
PROC: BW40ZZZ Ultrasonography of Abdomen (ICD-10-PCS; 2018-08-18)
DX: I13.0 Hypertensive heart and chronic kidney disease with heart failure and stage 1 through stage 4 chronic kidney disease, or unspecified chronic kidney disease (principal); I50.43 Acute on chronic combined systolic (congestive) and diastolic (congestive) heart failure; N17.0 Acute kidney failure with tubular necrosis; R18.8 Other ascites; I48.1 Persistent atrial fibrillation; I42.0 Dilated cardiomyopathy; I48.2 Chronic atrial fibrillation; E87.6 Hypokalemia; I95.9 Hypotension, unspecified; N18.9 Chronic kidney disease, unspecified; R74.0 Nonspecific elevation of levels of transaminase and lactic acid dehydrogenase [LDH]; E66.9 Obesity, unspecified; Z68.31 Body mass index [BMI] 31.0-31.9, adult; Z91.14 Patient's other noncompliance with medication regimen; Z79.01 Long term (current) use of anticoagulants; Z79.899 Other long term (current) drug therapy; Z71.89 Other specified counseling
CPT/HCPCS: 36415; 49083; 74177; 76700; 80048; 80053; 80074; 81001; 82570; 83735; 83880; 84156; 84484; 85025; 85027; 85610; 85730; 86021; 86038; 86160; 86225; 87116; 88112; 88305; 88342; 89050; 89051; 93005; 93010; 96360; A9270-GY; J1940; J2260; J3480; J7030; P9045; Q9967